=== PATIENT | male | born 1950 | race Caucasian/White ===

== ENCOUNTER 2017-07-15 10:13 | Inpatient (IN) | payer OTHER ==
[2017-07-15] MEDS ORDERED: PHARMACY CONSULT - TPN XX SCH (11:47)
[2017-07-15] MEDS: NS 1000 ML 1,000 ML IV SCH (12:10)
[2017-07-15 12:15] LABS: BASOPHILS # (AUTO) 0.1 X10^3/uL (0.0-0.1); BASOPHILS % (AUTO) 0.4 % (0.2-1.0); HEMATOCRIT 45.6 % (42.0-54.0); HEMOGLOBIN 15.1 g/dL (13.5-18.0); LYMPHOCYTES # (AUTO) 0.9 X10^3/uL (1.3-2.9); MEAN CORPUSCULAR HEMOGLOBIN 28.2 pg (27.0-34.0); MEAN CORPUSCULAR HGB CONC 33.2 g/dL (33.0-35.0); MONOCYTES # (AUTO) 1.3 x10^3/uL (0.3-0.8); MONOCYTES % (AUTO) 8.3 % (0.0-13.0); NEUTROPHILS % (AUTO) 85.3 % (42.0-75.0); PLATELET COUNT 240 X10^3/uL (150.0-450.0); RED BLOOD COUNT 5.36 X10^6/uL (4.7-6.0); RED CELL DISTRIBUTION WIDTH 14.5 % (11.6-16.5); WHITE BLOOD COUNT 15.2 X10^3/uL (3.6-10.0)
[2017-07-15 12:52] LABS: ALANINE AMINOTRANSFERASE 49 Units/L (12-78); ALBUMIN 3.3 g/dL (3.4-5.0); ALKALINE PHOSPHATASE 49 Units/L (46-116); ASPARTATE AMINO TRANSFERASE 174 Units/L (15-37); BLOOD UREA NITROGEN 28 mg/dL (7-18); CALCIUM 9.7 mg/dL (8.5-10.1); CARBON DIOXIDE 31.2 mmol/L (21-32); CHLORIDE 99 mmol/L (98-107); COR CA(FOR HYPOALB) 10.3 mg/dL (8.5-10.1); CREATININE 1.26 mg/dL (0.70-1.30); SODIUM 133 mmol/L (136-145); TOTAL PROTEIN 6.8 g/dL (6.4-8.2); eGFR BLACK RACES > 60 (>60); eGFR NON BLACK RACES > 60 (>60)
[2017-07-15 13:03] LABS: CKMB % 0.9 % (<4); CREATINE KINASE 5858 Units/L (39-308); CREATINE KINASE MB 54.3 ng/mL (0-4.0)
[2017-07-15 13:37] LABS: BILIRUBIN,URINE NEGATIVE (NEGATIVE); BLOOD/HEMOGLOBIN,URINE 5+ (NEGATIVE); GLUCOSE, URINE NEGATIVE (NEGATIVE); KETONES,URINE 1+ (NEGATIVE); LEUKOCYTE ESTERASE ,URINE 1+ (NEGATIVE); NITRITES,URINE NEGATIVE (NEGATIVE); PROTEIN,URINE 2+ (NEGATIVE); UROBILINOGEN,URINE NORMAL (NORMAL)
[2017-07-15 13:46] LABS: APPEARANCE,URINE HAZY (CLEAR); BACTERIA,URINE TRACE /HPF (NEGATIVE); COLOR,URINE YELLOW (YELLOW); SQUAMOUS EPITHELIAL CELL,UR FEW /HPF (NEGATIVE)
--- NOTE | 2017-07-15 13:53 | RAD ---
History: Shortness of breath Study: Portable semi-erect AP chest Comparison: January 03, 2014 Findings: The lungs again are hyperinflated. There is vascular congestion and cephalization of venous blood flow. The heart size is normal. There is no focal lung consolidation or atelectasis. Impression: COPD and vascular congestion Reported By:
--- NOTE | 2017-07-15 13:55 | CT ---
HISTORY: Weakness and fall. Study: CT brain without contrast Comparison: CT head dated December 27, 2013. Technique: Multiple axial images of the brain were obtained from the skull base to the vertex without administra tion of IV contrast. Dose reduction techniques including Automated Exposure Control (AEC) and adjust ment of mA and kV were utilized. Findings: Age-related cortical atrophy and chronic small vessel ischemic changes. Remote lacunar infarcts of th e left basal ganglia and bilateral thalami appear unchanged. Remote infarcts with associated encephal omalacia and ex vacuo dilatation of the posterior left occipital lobe and left cerebellum. No acute i ntraparenchymal hemorrhage or mass can be identified. No extra-axial fluid collections are seen. No alteration in the attenuation of the brain parenchyma can be identified to suggest acute or subacute ischemic change. The ventricular system is symmetric and nondilated. The extracranial structures a re grossly unremarkable. IMPRESSION: No obvious acute intracranial pathology. If clinically concerned for acute ischemia/infar ction, MRI brain is more sensitive. Reported By:
[2017-07-15] MEDS: ALBUMIN HUMAN 25%- 100ML 100 ML IV SCH (14:29)
[2017-07-15] MEDS: PROCALAMINE 3 % 1,000 ML IV SCH (14:32)
[2017-07-15 15:21] VITALS: BMI 16.5
[2017-07-15 16:36] LABS: TROPONIN I 0.17 ng/mL (0-1.5)
[2017-07-15 16:47] LABS: CREATINE KINASE MB 27.3 ng/mL (0-4.0)
[2017-07-15 16:48] LABS: CKMB % 0.7 % (<4)
[2017-07-15 20:44] LABS: TROPONIN I 0.15 ng/mL (0-1.5)
[2017-07-15 20:46] LABS: CKMB % 0.5 % (<4)
[2017-07-15 20:47] LABS: CREATINE KINASE MB 17.5 ng/mL (0-4.0)
[2017-07-15] MEDS ORDERED: ALBUTEROL SULFATE 90 MCG INH PRN (21:49)
[2017-07-16] MEDS ORDERED: DUONEB 0.5 MG/3 MG ONE (01:44)
[2017-07-16] MEDS: NS 1000 ML 1,000 ML IV SCH (02:09)
[2017-07-16] MEDS: PROVENTIL NEB TX 0.083% 2.5MG/ 3ML NEB PRN ×2 (04:18→09:40)
[2017-07-16 05:39] LABS: BASOPHILS % (AUTO) 0.5 % (0.2-1.0); EOSINOPHILS % (AUTO) 0.5 % (0.9-2.9); HEMATOCRIT 39.7 % (42.0-54.0); HEMOGLOBIN 13.1 g/dL (13.5-18.0); LYMPHOCYTES # (AUTO) 1.3 X10^3/uL (1.3-2.9); LYMPHOCYTES % (AUTO) 14.8 % (21.0-51.0); MEAN CORPUSCULAR HEMOGLOBIN 28.2 pg (27.0-34.0); MEAN CORPUSCULAR VOLUME 85.5 fL (80.0-100.0); MEAN PLATELET VOLUME 8.2 fL (7.4-11.0); MONOCYTES # (AUTO) 0.9 x10^3/uL (0.3-0.8); MONOCYTES % (AUTO) 9.9 % (0.0-13.0); NEUTROPHILS # (AUTO) 6.6 x10^3/uL (2.2-4.8); NEUTROPHILS % (AUTO) 74.3 % (42.0-75.0); PLATELET COUNT 201 X10^3/uL (150.0-450.0); RED BLOOD COUNT 4.65 X10^6/uL (4.7-6.0); RED CELL DISTRIBUTION WIDTH 14.2 % (11.6-16.5); WHITE BLOOD COUNT 8.8 X10^3/uL (3.6-10.0)
[2017-07-16 07:20] LABS: ALANINE AMINOTRANSFERASE 44 Units/L (12-78); ALBUMIN 2.7 g/dL (3.4-5.0); ALKALINE PHOSPHATASE 33 Units/L (46-116); ASPARTATE AMINO TRANSFERASE 112 Units/L (15-37); BLOOD UREA NITROGEN 26 mg/dL (7-18); CALCIUM 8.5 mg/dL (8.5-10.1); CARBON DIOXIDE 26.7 mmol/L (21-32); CHLORIDE 103 mmol/L (98-107); COR CA(FOR HYPOALB) 9.5 mg/dL (8.5-10.1); CREATININE 0.99 mg/dL (0.70-1.30); SODIUM 135 mmol/L (136-145); TOTAL PROTEIN 5.7 g/dL (6.4-8.2); TROPONIN I 0.07 ng/mL (0-1.5); eGFR BLACK RACES > 60 (>60); eGFR NON BLACK RACES > 60 (>60)
[2017-07-16 07:23] LABS: CKMB % 0.5 % (<4); CREATINE KINASE 1934 Units/L (39-308); CREATINE KINASE MB 9.3 ng/mL (0-4.0)
[2017-07-16] MEDS: ALBUMIN HUMAN 25%- 100ML 100 ML IV SCH (08:09)
[2017-07-16] MEDS: COZAAR PO SCH (08:10)
[2017-07-16] MEDS: MEGACE PO SCH ×2 (08:10→21:35)
[2017-07-16] MEDS: NORVASC TAB 5 MG PO SCH (08:10)
[2017-07-16] MEDS ORDERED: LOSARTAN POTASSIUM 50 MG PO SCH (09:00)
--- NOTE | 2017-07-16 10:57 | DR.H&P ---
H&P - History & Physical for Day of: H&P Date: 07/15/17 - Chief Complaint Chief Complaint: FALL, LEG WEAKNESS - Allergies Allergies/Adverse Reactions: Allergies Allergy/AdvReac Type Severity Reaction Status Date / Time No Known Allergies [NKA] Allergy Verified 07/16/17 11:11 - History of Present Illness History of Present Illness: is a 67 year old patient of ours who is a direct admission to the hospital from our office with complaints of weakness, unsteady gait, and headache. Patients son reported finding patient lying on the ground in his yard. It is unknown as to how long patient had been on the ground. Patient reports that he has not slept in 2-3 days. He does not recall falling. Upon examination, patient is alert and oriented. Heart is regular in rate and rhythm. Bilateral lungs are noted to be clear to auscultation. Abdomen is flat, soft, and non-tender with normal bowel sounds noted in all quadrants. There is decreased range of motion noted to extremities. Patient reports severe weakness to lower extremities. Medical History includes: CVA, TIA, hyperlipidemia, hypertension, pneumonia, COPD, GERD , muscle weakness, and back pain. We admitted patient to the hospital for further treatment and evaluation. We planned to obtain labs, ekg, chest xray, and brain ct without contrast. We plan to start him on normal saline at 75ml/hr , procalamine at 40ml/hr, and albumin 25% IV daily. On arrival to the hospital , vitals were 98.3, 102, 20, 94%RA, 136/91. He was placed on supplemental oxygen at 2l/min via nasal cannula. Labs were obtained. Abnormal Labs include the following: WBC 15.2, Sodium 133, BUN 28, Corrected Calcium 10.3, AST 174, Creatine Kinase 5858, CKMB 54.3, Albumin 3.3, A/G Ratio 0.9, Prealbumin 15.6. Urinalysis revealed: George Hazy, Protein 2+, Ketones 1+, Occult Blood 5+, Leuk Denise 1+, RBC 3-5, WBC 5-6, Squam Epith Cells Few, Bacteria Trace. EKG reported : Sinus rhythm. Heart rate=96. Chest xray reported: COPD and vascular congestion. Brain CT reported: No obvious acute intracranial pathology. If clinical concern for acute ischemia/infarction MELISSA brain is more sensitive. We plan to continue aggressive iv hydration. We will follow up with AM labs and continue to monitor patient. - Past Medical History Past Medical History: COPD, CVA, Dementia, Dyslipidemia, Hypertension - Past Surgical History Surgical History: Appendectomy, Ortho Surgery Additional Surgical History: (R) leg repair from accident with horse - Family History Family Medical History: Cancer, [place], Hypertension - Social History Alcohol Use: None Drug Use: None - Medications Home Medications: Albuterol Sulfate [VENTOLIN or PROAIR HFA Inhaler *] 90 mcg INH Q4H PRN [History Confirmed 07/15/17] Losartan Potassium [Cozaar 100 mg] 50 mg PO DAILY 07/15/17 [History Confirmed ] Megestrol Acetate [MEGACE TAB 40 MG *] 1 tab PO BID 07/15/17 [History Confirmed 07/15/17] - Review of Systems Constitutional: See HPI, Weakness Eyes: No Symptoms Reported. denies: See HPI, Pain, Vision Change, Conjunctivae Inflammation, Eyelid Inflammation, Redness, Other ENT: No Symptoms Reported. denies: See HPI, Ear Pain, Ear Discharge, Nose Pain , Nose Discharge, Nose Congestion, Mouth Pain, Mouth Swelling, Throat Pain, Throat Swelling, Other Respiratory: No Symptoms Reported. denies: See HPI, Cough, Dry, Shortness of Breath, Hemoptysis, SOB with Excertion, Pleuritic Pain, Sputum, Wheezing, Other Cardiovascular: No Symptoms Reported. denies: Chest Pain, See HPI, Palpitations , Orthopnea, Paroxysmal Noc. Dyspnea, Edema, Light Headedness, Other Gastrointestinal: No Symptoms Reported. denies: See HPI, Nausea, Vomiting, Abdominal Pain, Diarrhea, Constipation, Melena, Hematochezia, Other Genitourinary: No Symptoms Reported. denies: See HPI, Dysuria, Frequency, Incontinence, Hematuria, Retention, Other Musculoskeletal: Leg Pain (bialteral leg cramping ) Skin: No Symptoms Reported Neurological: Weakness - Physical Exam Vital Signs: Temperature 97.6 F Pulse Rate [Left] 85 Pulse Rate 81 Respiratory Rate 20 Blood Pressure [Right Arm] 174/88 Blood Pressure [Left Arm] 164/95 Blood Pressure 143/89 O2 Sat by Pulse Oximetry 98 Oriented: Normal Eyes: Normal. negative: Blurred Vision, Diplopia, Discharge, Pain, Redness, Photophobia, Other Ear: Normal. negative: Right, Left, Swelling, Ecchymosis, Hemotypanum, Abrasion , Laceration Nose: Normal. negative: Injected, Discharge, Blood, Other Throat: Normal. negative: Tonsillar Hypertrophy, Red, Exudate, Dry, Other Respiratory: Clear Throughout Cardiovascular: negative: Normal, Tachycardia, Bradycardia, Irregular, S3, S4, Systolic, Diastolic, Murmur, Edema, Other Auscultation: Bowel Sounds: Normal. negative: Bruit, Absent, Increased, Decreased, High Pitched, Other Palpation: Normal. negative: Spleen Enlarged, Liver Enlarged, Mass Pulsatile, Other Tenderness: Normal. negative: Diffuse, RUQ, RLQ, LUQ, LLQ, Epigastric, Periumbilical, Suprapubic, Mild, Moderate, Severe, Rebound, Guarding, Rigidity, Other Skin: Decreased Turgur Musculoskeletal: Right, Left, Leg (bilateral lower extremity weakness ) Psychiatric: Normal Mood Description: Calm Affect: Normal Speech Pattern: Clear - Assessment/Plan (1) Rhabdomyolysis Qualifiers: Rhabdomyolysis type: traumatic Encounter type: initial encounter Qualified Code(s): T79.6XXA - Traumatic ischemia of muscle, initial encounter Status: Acute Plan: NORMAL SALINE AT 75ML/HR, PROCALAMINE AT 40ML/HR, BRAIN CT DUE TO FALL, PHYSICAL THERAPY DUE TO WEAKNESS, CONTINUE TO MONITOR (2) Fall Qualifiers: Encounter type: initial encounter Qualified Code(s): W19.XXXA - Unspecified fall, initial encounter Status: Acute Plan: BRAIN CT WITHOUT CONTRAST, PHYSICAL THERAPY CONSULT, CONTINUE TO MONITOR (3) Protein deficiency Status: Acute Plan: PROCALAMINE AT 40ML/HR, ALBUMIN 25% IV DAILY, CONTINUE TO MONITOR
[2017-07-16] MEDS: ASPIRIN EC 81 MG PO SCH (14:48)
[2017-07-16] MEDS: PROCALAMINE 3 % 1,000 ML IV SCH (14:48)
[2017-07-16] MEDS: COLACE CAP 100 MG PO SCH (21:35)
[2017-07-17] MEDS: VISTARIL PO PRN (03:20)
[2017-07-17 05:47] LABS: BASOPHILS % (AUTO) 0.2 % (0.2-1.0); EOSINOPHILS % (AUTO) 0.4 % (0.9-2.9); HEMOGLOBIN 14.2 g/dL (13.5-18.0); LYMPHOCYTES # (AUTO) 0.5 X10^3/uL (1.3-2.9); LYMPHOCYTES % (AUTO) 3.9 % (21.0-51.0); MEAN CORPUSCULAR HEMOGLOBIN 28.5 pg (27.0-34.0); MEAN CORPUSCULAR HGB CONC 33.1 g/dL (33.0-35.0); MEAN CORPUSCULAR VOLUME 86.1 fL (80.0-100.0); MEAN PLATELET VOLUME 8.3 fL (7.4-11.0); MONOCYTES # (AUTO) 0.7 x10^3/uL (0.3-0.8); MONOCYTES % (AUTO) 5.6 % (0.0-13.0); NEUTROPHILS # (AUTO) 10.8 x10^3/uL (2.2-4.8); NEUTROPHILS % (AUTO) 89.9 % (42.0-75.0); PLATELET COUNT 210 X10^3/uL (150.0-450.0); RED BLOOD COUNT 4.99 X10^6/uL (4.7-6.0); RED CELL DISTRIBUTION WIDTH 14.3 % (11.6-16.5); WHITE BLOOD COUNT 12.1 X10^3/uL (3.6-10.0)
[2017-07-17 06:25] LABS: ALANINE AMINOTRANSFERASE 59 Units/L (12-78); ALBUMIN 3.4 g/dL (3.4-5.0); ALKALINE PHOSPHATASE 39 Units/L (46-116); ASPARTATE AMINO TRANSFERASE 120 Units/L (15-37); BLOOD UREA NITROGEN 16 mg/dL (7-18); CALCIUM 9.1 mg/dL (8.5-10.1); CHLORIDE 97 mmol/L (98-107); CREATININE 0.81 mg/dL (0.70-1.30); SODIUM 133 mmol/L (136-145); TOTAL PROTEIN 6.7 g/dL (6.4-8.2); TROPONIN I 0.05 ng/mL (0-1.5); eGFR BLACK RACES > 60 (>60); eGFR NON BLACK RACES > 60 (>60)
[2017-07-17 06:28] LABS: CKMB % 0.4 % (<4); CREATINE KINASE 2314 Units/L (39-308); CREATINE KINASE MB 9.1 ng/mL (0-4.0)
[2017-07-17] MEDS: COZAAR PO SCH (09:42)
[2017-07-17] MEDS: NORVASC TAB 5 MG PO SCH (09:42)
[2017-07-17] MEDS: ALBUMIN HUMAN 25%- 100ML 100 ML IV SCH (09:43)
[2017-07-17] MEDS: MEGACE PO SCH ×2 (09:43→20:46)
[2017-07-17] MEDS: ASPIRIN EC 81 MG PO SCH (09:43)
[2017-07-17] MEDS: ROCEPHIN VIAL 1 GM 1 GM in NS 100 ML IV + SPIKE MINIBAG* 100 ML IV SCH (09:59)
[2017-07-17] MEDS: NS 1000 ML 1,000 ML IV SCH (09:59)
[2017-07-17 11:33] LABS: BILIRUBIN,URINE NEGATIVE (NEGATIVE); BLOOD/HEMOGLOBIN,URINE 5+ (NEGATIVE); GLUCOSE, URINE NEGATIVE (NEGATIVE); KETONES,URINE NEGATIVE (NEGATIVE); LEUKOCYTE ESTERASE ,URINE NEGATIVE (NEGATIVE); NITRITES,URINE NEGATIVE (NEGATIVE); PROTEIN,URINE 1+ (NEGATIVE); UROBILINOGEN,URINE NORMAL (NORMAL)
[2017-07-17 11:43] LABS: APPEARANCE,URINE SLIGHTLY HAZY (CLEAR); COLOR,URINE YELLOW (YELLOW); RBC,URINE 40-50 /HPF (NEGATIVE)
[2017-07-17 11:44] LABS: BACTERIA,URINE NEGATIVE /HPF (NEGATIVE); SQUAMOUS EPITHELIAL CELL,UR NEGATIVE /HPF (NEGATIVE)
[2017-07-17] MEDS: MILK OF MAGNESIA PO SCH (14:41)
[2017-07-17] MEDS: COLACE CAP 100 MG PO SCH (20:46)
[2017-07-17] MEDS: PROCALAMINE 3 % 1,000 ML IV SCH (20:51)
[2017-07-18 05:57] LABS: BASOPHILS # (AUTO) 0.1 X10^3/uL (0.0-0.1); BASOPHILS % (AUTO) 0.7 % (0.2-1.0); EOSINOPHILS # (AUTO) 0.3 x10^3/uL (0.0-0.2); EOSINOPHILS % (AUTO) 3.7 % (0.9-2.9); HEMATOCRIT 40.3 % (42.0-54.0); HEMOGLOBIN 13.5 g/dL (13.5-18.0); LYMPHOCYTES # (AUTO) 1.1 X10^3/uL (1.3-2.9); LYMPHOCYTES % (AUTO) 11.8 % (21.0-51.0); MEAN CORPUSCULAR HEMOGLOBIN 28.5 pg (27.0-34.0); MEAN CORPUSCULAR HGB CONC 33.5 g/dL (33.0-35.0); MEAN CORPUSCULAR VOLUME 85.1 fL (80.0-100.0); MEAN PLATELET VOLUME 8.1 fL (7.4-11.0); MONOCYTES # (AUTO) 0.9 x10^3/uL (0.3-0.8); MONOCYTES % (AUTO) 9.6 % (0.0-13.0); NEUTROPHILS # (AUTO) 6.9 x10^3/uL (2.2-4.8); NEUTROPHILS % (AUTO) 74.2 % (42.0-75.0); PLATELET COUNT 225 X10^3/uL (150.0-450.0); RED BLOOD COUNT 4.74 X10^6/uL (4.7-6.0); RED CELL DISTRIBUTION WIDTH 14.5 % (11.6-16.5); WHITE BLOOD COUNT 9.3 X10^3/uL (3.6-10.0)
[2017-07-18 06:17] LABS: ALANINE AMINOTRANSFERASE 50 Units/L (12-78); ALBUMIN 3.2 g/dL (3.4-5.0); ALKALINE PHOSPHATASE 33 Units/L (46-116); ASPARTATE AMINO TRANSFERASE 85 Units/L (15-37); BLOOD UREA NITROGEN 16 mg/dL (7-18); CALCIUM 8.9 mg/dL (8.5-10.1); CARBON DIOXIDE 26.9 mmol/L (21-32); CHLORIDE 101 mmol/L (98-107); COR CA(FOR HYPOALB) 9.5 mg/dL (8.5-10.1); SODIUM 134 mmol/L (136-145); TOTAL PROTEIN 6.2 g/dL (6.4-8.2); TROPONIN I 0.03 ng/mL (0-1.5); eGFR BLACK RACES > 60 (>60); eGFR NON BLACK RACES > 60 (>60)
[2017-07-18 06:23] LABS: CKMB % 0.4 % (<4); CREATINE KINASE 1180 Units/L (39-308); CREATINE KINASE MB 4.4 ng/mL (0-4.0)
[2017-07-18] MEDS: NS 1000 ML 1,000 ML IV SCH ×3 (07:25→17:20)
[2017-07-18] MEDS: COLACE CAP 100 MG PO SCH ×3 (07:26→21:16)
[2017-07-18] MEDS: ALBUMIN HUMAN 25%- 100ML 100 ML IV SCH (08:47)
[2017-07-18] MEDS: ASPIRIN EC 81 MG PO SCH (08:47)
[2017-07-18] MEDS: MILK OF MAGNESIA PO SCH (08:48)
[2017-07-18] MEDS: COZAAR PO SCH (08:48)
[2017-07-18] MEDS: ROCEPHIN VIAL 1 GM 1 GM in NS 100 ML IV + SPIKE MINIBAG* 100 ML IV SCH (08:48)
[2017-07-18] MEDS: MEGACE PO SCH ×2 (08:48→21:16)
[2017-07-18] MEDS: NORVASC TAB 5 MG PO SCH (08:48)
[2017-07-18] MEDS ORDERED: MILK OF MAGNESIA PO SCH (09:00)
[2017-07-18] MEDS: PROCALAMINE 3 % 1,000 ML IV SCH (13:01)
[2017-07-18] MEDS: FLOMAX PO SCH ×2 (13:01→21:16)
--- NOTE | 2017-07-18 17:40 | PCM.PROG ---
Progress Note - Progress Note for Day of Date: 07/16/17 - Subjective Subjective: IS BEING TREATED FOR RHABDOMYOLYSIS AND WEAKNESS TO THE LOWER EXTREMITIES. HE REPORTEDLY FELL AT HOME YESTERDAY. TODAY, HE IS ALERT AND ORIENTED, LYING IN BED ON MORNING ROUNDS. HE CONTINUES WITH COMPLAINTS OF GENERALIZED WEAKNESS. ON EXAMINATION, HEART IS REGULAR IN RATE AND RHYTHM. BILATERAL LUNGS ARE NOTED WITH DIMINISHED LUNG SOUNDS THROUGHOUT. ABDOMEN IS ROUND, SOFT, AND NOTED WITH MILD, SUPRAPUBIC TENDERNESS ON PALPATION. NORMAL BOWEL SOUNDS NOTED IN ALL QUADRANTS. THERE IS NORMAL RANGE OF MOTION NOTED TO ALL EXTREMITIES. HIS VITALS THIS MORNING ARE 97.6-85-20-98%-164/ 95. LABS WERE OBTAINED THIS MORNING. ABNORMAL LAB VALUES INCLUDE THE FOLLOWING: RBC 4.65, HGB 13.1, HCT 39.7, SODIUM 135, BUN 26, AST 112, ALK OHOS 33, TOTAL PROTEIN 5.7, ALBUMIN 2.7. HIS CREATINE KINASE THIS MORNING IS 1934. THIS IS A DECREASE FROM YESTERDAYS CREATINE KINASE LEVEL OF 3343. MOST RECENT EKG WAS OBTAINED AT 19:53 LAST NIGHT AND REPORTS SINUS RHYTHM WITH HR 95. TODAY, WE WILL HAVE PHYSICAL THERAPY AND OCCUPATIONAL THERAPY EVALUATE PATIENT. OTHERWISE , WE WILL CONTINUE WITH CURRENT PLAN OF CARE AND AGGRESSIVE IV HYDRATION. WE PLAN TO FOLLOW UP WITH AM LABS AND CONTINUE TO MONITOR PATIENT. - Past Medical Family Social History Past Med/Fam/Surg Hx: No changes since H&P Allergies: Allergies No Known Allergies [NKA] Allergy (Verified 07/16/17 11:11) - Vital Signs and I&O's Vital Signs: Temperature 98.1 F Pulse Rate [Left] 83 Pulse Rate 89 Respiratory Rate 20 Blood Pressure [Right Arm] 131/74 Blood Pressure [Left Arm] 175/105 Blood Pressure 143/89 O2 Sat by Pulse Oximetry 100 Intake and Output: Intake & Output 07/16/17 07/17/17 07/18/17 07/19/17 11:59 11:59 11:59 11:59 Intake Total 820 1618 3097 1250 Output Total 413 892 4584 1200 Balance 245 1218 -303 50 - Physical Exam Oriented: Normal Eyes: Normal. negative: Blurred Vision, Diplopia, Discharge, Pain, Redness, Photophobia, Other Ear: Normal. negative: Right, Left, Swelling, Ecchymosis, Hemotypanum, Abrasion , Laceration Nose: Normal. negative: Injected, Discharge, Blood, Other Throat: Normal. negative: Tonsillar Hypertrophy, Red, Exudate, Dry, Other Respiratory: Generalized Cardiovascular: negative: Normal, Tachycardia, Bradycardia, Irregular, S3, S4, Systolic, Diastolic, Murmur, Edema, Other : Normal Auscultation: Bowel Sounds: Normal. negative: Bruit, Absent, Increased, Decreased, High Pitched, Other Palpation: Normal Tenderness: Suprapubic, Mild. negative: Rebound, Guarding, Rigidity Skin: Decreased Turgur Musculoskeletal: Right, Left, Leg (bilateral lower extremity weakness ) Psychiatric: Normal Mood Description: Calm Affect: Normal Speech Pattern: Clear, Appropriate - Laboratory and Diagnostics Result Diagrams: 07/18/17 05:00 07/18/17 05:00 Labs: Laboratory WBC 9.3 X10^3/uL (3.6-10.0) 07/18/17 05:00 RBC 4.74 X10^6/uL (4.7-6.0) 07/18/17 05:00 Hgb 13.5 g/dL (13.5-18.0) 07/18/17 05:00 Hct 40.3 % (42.0-54.0) L 07/18/17 05:00 MCV 85.1 fL (80.0-100.0) 07/18/17 05:00 MCH 28.5 pg (27.0-34.0) 07/18/17 05:00 MCHC 33.5 g/dL (33.0-35.0) 07/18/17 05:00 RDW 14.5 % (11.6-16.5) 07/18/17 05:00 Plt Count 225 X10^3/uL (150.0-450.0) 07/18/17 05:00 MPV 8.1 fL (7.4-11.0) 07/18/17 05:00 Neut % 74.2 % (42.0-75.0) 07/18/17 05:00 Lymph % 11.8 % (21.0-51.0) L 07/18/17 05:00 [place] % 9.6 % (0.0-13.0) 07/18/17 05:00 Eos % 3.7 % (0.9-2.9) H 07/18/17 05:00 Baso % 0.7 % (0.2-1.0) 07/18/17 05:00 Neut # 6.9 x10^3/uL (2.2-4.8) H 07/18/17 05:00 Lymph # 1.1 X10^3/uL (1.3-2.9) L 07/18/17 05:00 [place] # 0.9 x10^3/uL (0.3-0.8) H 07/18/17 05:00 Eos # 0.3 x10^3/uL (0.0-0.2) H 07/18/17 05:00 Baso # 0.1 X10^3/uL (0.0-0.1) 07/18/17 05:00 Absolute Nucleated RBC 0.1 /100WBC 07/18/17 05:00 Sodium 134 mmol/L (136-145) L 07/18/17 05:00 Corrected Sodium TNP 07/18/17 05:00 Potassium 4.2 mmol/L (3.5-5.1) 07/18/17 05:00 Chloride 101 mmol/L (98-107) 07/18/17 05:00 Carbon Dioxide 26.9 mmol/L (21-32) 07/18/17 05:00 BUN 16 mg/dL (7-18) 07/18/17 05:00 Creatinine 0.90 mg/dL (0.70-1.30) 07/18/17 05:00 Est GFR (MDRD) Af Amer > 60 (>60) 07/18/17 05:00 Est GFR (MDRD) Non-Af > 60 (>60) 07/18/17 05:00 Glucose 84 mg/dL (65-99) 07/18/17 05:00 Calcium 8.9 mg/dL (8.5-10.1) 07/18/17 05:00 Corrected Calcium 9.5 mg/dL (8.5-10.1) 07/18/17 05:00 Total Bilirubin 0.70 mg/dL (0.2-1.0) 07/18/17 05:00 AST 85 Units/L (15-37) H 07/18/17 05:00 ALT 50 Units/L (12-78) 07/18/17 05:00 Alkaline Phosphatase 33 Units/L (46-116) L 07/18/17 05:00 Creatine Kinase 1180 Units/L (39-308) H 07/18/17 05:00 CK-MB (CK-2) 4.4 ng/mL (0-4.0) H* 07/18/17 05:00 CK/CKMB % Calc 0.4 % (<4) 07/18/17 05:00 Troponin I 0.03 ng/mL (0-1.5) 07/18/17 05:00 Total Protein 6.2 g/dL (6.4-8.2) L 07/18/17 05:00 Albumin 3.2 g/dL (3.4-5.0) L 07/18/17 05:00 Globulin 3.0 g/dL (2.5-4.5) 07/18/17 05:00 Albumin/Globulin Ratio 1.1 Ratio (1.1-2.1) 07/18/17 05:00 Prealbumin 15.6 mg/dL (18-35.7) L 07/15/17 12:00 Specimen Type Catherized urine 07/17/17 11:18 Urine Color Yellow (YELLOW) 07/17/17 11:18 Urine Appearance Slightly hazy (CLEAR) 07/17/17 11:18 Urine pH 7.0 (5.0 - 8.0) 07/17/17 11:18 Ur Specific [place] 1.010 (1.000-1.030) 07/17/17 11:18 Urine Protein 1+ (NEGATIVE) 07/17/17 11:18 Urine Glucose (UA) Negative (NEGATIVE) 07/17/17 11:18 Urine Ketones Negative (NEGATIVE) 07/17/17 11:18 Urine Occult Blood 5+ (NEGATIVE) 07/17/17 11:18 Urine Nitrite Negative (NEGATIVE) 07/17/17 11:18 Urine Bilirubin Negative (NEGATIVE) 07/17/17 11:18 Urine Urobilinogen Normal (NORMAL) 07/17/17 11:18 Ur Leukocyte Esterase Negative (NEGATIVE) 07/17/17 11:18 Urine RBC 40-50 /HPF (NEGATIVE) 07/17/17 11:18 Urine WBC 0-3 /HPF (NEGATIVE) 07/17/17 11:18 Ur Squamous Epith Cells Negative /HPF (NEGATIVE) 07/17/17 11:18 Urine Bacteria Negative /HPF (NEGATIVE) 07/17/17 11:18 Ur Culture Indicated? No/not indicated 07/17/17 11:18 - Plan (1) Rhabdomyolysis Status: Acute Qualifiers: Rhabdomyolysis type: traumatic Encounter type: initial encounter Qualified Code(s): T79.6XXA - Traumatic ischemia of muscle, initial encounter Plan: NORMAL SALINE AT 75ML/HR, PROCALAMINE AT 40ML/HR, BRAIN CT DUE TO FALL, PHYSICAL THERAPY DUE TO WEAKNESS, CONTINUE TO MONITOR (2) Fall Status: Acute Qualifiers: Encounter type: initial encounter Qualified Code(s): W19.XXXA - Unspecified fall, initial encounter Plan: BRAIN CT WITHOUT CONTRAST, PHYSICAL THERAPY CONSULT, CONTINUE TO MONITOR (3) Protein deficiency Status: Acute Plan: PROCALAMINE AT 40ML/HR, ALBUMIN 25% IV DAILY, CONTINUE TO MONITOR
--- NOTE | 2017-07-18 22:05 | PCM.PROG ---
Progress Note - Progress Note for Day of Date: 07/17/17 - Subjective Subjective: IS BEING TREATED FOR RHABDOMYOLYSIS AND WEAKNESS TO THE LOWER EXTREMITIES. TODAY, HE IS ALERT AND ORIENTED, LYING IN BED ON MORNING ROUNDS. HE CONTINUES WITH COMPLAINTS OF GENERALIZED WEAKNESS. STAFF REPORTS THAT PATIENT COMPLAINED OF BEING UNABLE TO URINATE LAST NIGHT AND EARLY THIS MORNING. IN AND OUT CATHETERIZATION WAS PERFORMED. APPROXIMATELY 480ML CLEAR YELLOW URINE OBTAINED ON RETURN. PATIENTS SON REPORTED THAT PATIENT HAS BEEN AGITATED AND CONFUSED THROUGHOUT THE NIGHT AND HASNT SLEPT WELL SINCE ADMISSION. ON EXAMINATION, HEART IS REGULAR IN RATE AND RHYTHM. BILATERAL LUNGS ARE NOTED TO BE CLEAR TO AUSCULTATION. ABDOMEN IS ROUND, SOFT, AND NOTED WITH MILD, SUPRAPUBIC TENDERNESS ON PALPATION. NORMAL BOWEL SOUNDS NOTED IN ALL QUADRANTS. THERE IS NORMAL RANGE OF MOTION NOTED TO ALL EXTREMITIES. HIS VITALS THIS MORNING ARE 97.2-94-22-94%-139/95. LABS WERE OBTAINED THIS MORNING. ABNORMAL LAB VALUES INCLUDE THE FOLLOWING: WBC 12.1, SODIUM 133, CHLORIDE 97, AST 120, ALK PHOS 39, CREATINE KINASE INCREASED FROM 1934 TO 2314. TODAY, WE WILL START ZYPREXA 2.5MG PO HS. PHYSICAL THERAPY CONTINUES TO WORK WITH PATIENT , HOWEVER, PATIENT DOES NOT FULLY COOPERATE. HE REFUSES TO PERFORM EXERCISES. TODAY, WE WILL CONTINUE WITH CURRENT PLAN OF CARE AND AGGRESSIVE IV HYDRATION. WE PLAN TO FOLLOW UP WITH AM LABS AND CONTINUE TO MONITOR PATIENT. - Past Medical Family Social History Past Med/Fam/Surg Hx: No changes since H&P Allergies: Allergies No Known Allergies [NKA] Allergy (Verified 07/16/17 11:11) - Vital Signs and I&O's Vital Signs: Temperature 98.1 F Pulse Rate [Left] 83 Pulse Rate 82 Respiratory Rate 20 Blood Pressure [Right Arm] 131/74 Blood Pressure [Left Arm] 175/105 Blood Pressure 143/89 O2 Sat by Pulse Oximetry 96 Intake and Output: Intake & Output 07/16/17 07/17/17 07/18/17 07/19/17 11:59 11:59 11:59 11:59 Intake Total 820 1618 3097 1250 Output Total 222 158 2521 1200 Balance 245 1218 -303 50 - Physical Exam Oriented: Normal Eyes: Normal. negative: Blurred Vision, Diplopia, Discharge, Pain, Redness, Photophobia, Other Ear: Normal. negative: Right, Left, Swelling, Ecchymosis, Hemotypanum, Abrasion , Laceration Nose: Normal. negative: Injected, Discharge, Blood, Other Throat: Normal. negative: Tonsillar Hypertrophy, Red, Exudate, Dry, Other Respiratory: Generalized Cardiovascular: negative: Normal, Tachycardia, Bradycardia, Irregular, S3, S4, Systolic, Diastolic, Murmur, Edema, Other : Normal Auscultation: Bowel Sounds: Normal. negative: Bruit, Absent, Increased, Decreased, High Pitched, Other Palpation: Normal Tenderness: Suprapubic, Mild. negative: Rebound, Guarding, Rigidity Skin: Decreased Turgur Musculoskeletal: Right, Left, Leg (bilateral lower extremity weakness ), Instability Psychiatric: Normal Mood Description: Calm Affect: Normal Speech Pattern: Clear, Appropriate - Laboratory and Diagnostics Result Diagrams: 07/18/17 05:00 07/18/17 05:00 Labs: Laboratory WBC 9.3 X10^3/uL (3.6-10.0) 07/18/17 05:00 RBC 4.74 X10^6/uL (4.7-6.0) 07/18/17 05:00 Hgb 13.5 g/dL (13.5-18.0) 07/18/17 05:00 Hct 40.3 % (42.0-54.0) L 07/18/17 05:00 MCV 85.1 fL (80.0-100.0) 07/18/17 05:00 MCH 28.5 pg (27.0-34.0) 07/18/17 05:00 MCHC 33.5 g/dL (33.0-35.0) 07/18/17 05:00 RDW 14.5 % (11.6-16.5) 07/18/17 05:00 Plt Count 225 X10^3/uL (150.0-450.0) 07/18/17 05:00 MPV 8.1 fL (7.4-11.0) 07/18/17 05:00 Neut % 74.2 % (42.0-75.0) 07/18/17 05:00 Lymph % 11.8 % (21.0-51.0) L 07/18/17 05:00 [place] % 9.6 % (0.0-13.0) 07/18/17 05:00 Eos % 3.7 % (0.9-2.9) H 07/18/17 05:00 Baso % 0.7 % (0.2-1.0) 07/18/17 05:00 Neut # 6.9 x10^3/uL (2.2-4.8) H 07/18/17 05:00 Lymph # 1.1 X10^3/uL (1.3-2.9) L 07/18/17 05:00 [place] # 0.9 x10^3/uL (0.3-0.8) H 07/18/17 05:00 Eos # 0.3 x10^3/uL (0.0-0.2) H 07/18/17 05:00 Baso # 0.1 X10^3/uL (0.0-0.1) 07/18/17 05:00 Absolute Nucleated RBC 0.1 /100WBC 07/18/17 05:00 Sodium 134 mmol/L (136-145) L 07/18/17 05:00 Corrected Sodium TNP 07/18/17 05:00 Potassium 4.2 mmol/L (3.5-5.1) 07/18/17 05:00 Chloride 101 mmol/L (98-107) 07/18/17 05:00 Carbon Dioxide 26.9 mmol/L (21-32) 07/18/17 05:00 BUN 16 mg/dL (7-18) 07/18/17 05:00 Creatinine 0.90 mg/dL (0.70-1.30) 07/18/17 05:00 Est GFR (MDRD) Af Amer > 60 (>60) 07/18/17 05:00 Est GFR (MDRD) Non-Af > 60 (>60) 07/18/17 05:00 Glucose 84 mg/dL (65-99) 07/18/17 05:00 Calcium 8.9 mg/dL (8.5-10.1) 07/18/17 05:00 Corrected Calcium 9.5 mg/dL (8.5-10.1) 07/18/17 05:00 Total Bilirubin 0.70 mg/dL (0.2-1.0) 07/18/17 05:00 AST 85 Units/L (15-37) H 07/18/17 05:00 ALT 50 Units/L (12-78) 07/18/17 05:00 Alkaline Phosphatase 33 Units/L (46-116) L 07/18/17 05:00 Creatine Kinase 1180 Units/L (39-308) H 07/18/17 05:00 CK-MB (CK-2) 4.4 ng/mL (0-4.0) H* 07/18/17 05:00 CK/CKMB % Calc 0.4 % (<4) 07/18/17 05:00 Troponin I 0.03 ng/mL (0-1.5) 07/18/17 05:00 Total Protein 6.2 g/dL (6.4-8.2) L 07/18/17 05:00 Albumin 3.2 g/dL (3.4-5.0) L 07/18/17 05:00 Globulin 3.0 g/dL (2.5-4.5) 07/18/17 05:00 Albumin/Globulin Ratio 1.1 Ratio (1.1-2.1) 07/18/17 05:00 Prealbumin 15.6 mg/dL (18-35.7) L 07/15/17 12:00 Specimen Type Catherized urine 07/17/17 11:18 Urine Color Yellow (YELLOW) 07/17/17 11:18 Urine Appearance Slightly hazy (CLEAR) 07/17/17 11:18 Urine pH 7.0 (5.0 - 8.0) 07/17/17 11:18 Ur Specific [place] 1.010 (1.000-1.030) 07/17/17 11:18 Urine Protein 1+ (NEGATIVE) 07/17/17 11:18 Urine Glucose (UA) Negative (NEGATIVE) 07/17/17 11:18 Urine Ketones Negative (NEGATIVE) 07/17/17 11:18 Urine Occult Blood 5+ (NEGATIVE) 07/17/17 11:18 Urine Nitrite Negative (NEGATIVE) 07/17/17 11:18 Urine Bilirubin Negative (NEGATIVE) 07/17/17 11:18 Urine Urobilinogen Normal (NORMAL) 07/17/17 11:18 Ur Leukocyte Esterase Negative (NEGATIVE) 07/17/17 11:18 Urine RBC 40-50 /HPF (NEGATIVE) 07/17/17 11:18 Urine WBC 0-3 /HPF (NEGATIVE) 07/17/17 11:18 Ur Squamous Epith Cells Negative /HPF (NEGATIVE) 07/17/17 11:18 Urine Bacteria Negative /HPF (NEGATIVE) 07/17/17 11:18 Ur Culture Indicated? No/not indicated 07/17/17 11:18 - Plan (1) Rhabdomyolysis Status: Acute Qualifiers: Rhabdomyolysis type: traumatic Encounter type: initial encounter Qualified Code(s): T79.6XXA - Traumatic ischemia of muscle, initial encounter Plan: NORMAL SALINE AT 75ML/HR, PROCALAMINE AT 40ML/HR, BRAIN CT DUE TO FALL, PHYSICAL THERAPY DUE TO WEAKNESS, CONTINUE TO MONITOR (2) Fall Status: Acute Qualifiers: Encounter type: initial encounter Qualified Code(s): W19.XXXA - Unspecified fall, initial encounter Plan: BRAIN CT WITHOUT CONTRAST, PHYSICAL THERAPY CONSULT, CONTINUE TO MONITOR (3) Protein deficiency Status: Acute Plan: PROCALAMINE AT 40ML/HR, ALBUMIN 25% IV DAILY, CONTINUE TO MONITOR (4) Agitation Status: Acute Plan: ZYPREXA 2.5MG HS, CONTINUE TO MONITOR
--- NOTE | 2017-07-18 23:40 | PCM.PROG ---
Progress Note - Progress Note for Day of Date: 07/18/17 - Subjective Subjective: IS BEING TREATED FOR RHABDOMYOLYSIS AND WEAKNESS TO THE LOWER EXTREMITIES. TODAY, HE IS ALERT AND ORIENTED, LYING IN BED ON MORNING ROUNDS. HE CONTINUES WITH COMPLAINTS OF GENERALIZED WEAKNESS, BUT REPORTS SLIGHT IMPROVEMENT IN SYMPTOMS SINCE YESTERDAY. DUE TO RETAINING URINE, A BAIG CATHETER WAS INSERTED YESTERDAY. IT IS NOTED TO BEDSIDE DRAINAGE WITH CLEAR YELLOW URINE THIS MORNING. PATIENTS SON REPORTED THAT PATIENT CONTINUES WITH AGITATION AND DOES NOT WANT TO COOPERATE WITH THERAPY. ON EXAMINATION, HEART IS REGULAR IN RATE AND RHYTHM. BILATERAL LUNGS ARE NOTED TO BE CLEAR TO AUSCULTATION. ABDOMEN IS ROUND, SOFT, AND NOTED WITH MILD, SUPRAPUBIC TENDERNESS ON PALPATION. NORMAL BOWEL SOUNDS NOTED IN ALL QUADRANTS. THERE IS NORMAL RANGE OF MOTION NOTED TO ALL EXTREMITIES. HIS VITALS THIS MORNING ARE 97.8-101-22-96%-166/98. LABS WERE OBTAINED THIS MORNING. ABNORMAL LAB VALUES INCLUDE THE FOLLOWING: HCT 40.3, SODIUM 134, AST 85, ALK PHOS 33, CREATINE KINASE DECREASED FROM 2314 TO 1180. DUE TO PERSISTENT AGITATION, WE WILL INCREASE ZYPREXA TO 2.5MG PO BID. WE WILL ALSO START FLOMAX 0.4MG PO BID FOR URINE RETENTION. OTHERWISE, WE WILL CONTINUE WITH CURRENT PLAN OF CARE AND AGGRESSIVE IV HYDRATION. WE PLAN TO FOLLOW UP WITH AM LABS AND CONTINUE TO MONITOR PATIENT. - Past Medical Family Social History Past Med/Fam/Surg Hx: No changes since H&P Allergies: Allergies No Known Allergies [NKA] Allergy (Verified 07/16/17 11:11) - Review of Systems ROS: No change since H&P - Vital Signs and I&O's Vital Signs: Temperature 98.1 F Pulse Rate [Left] 83 Pulse Rate 82 Respiratory Rate 20 Blood Pressure [Right Arm] 131/74 Blood Pressure [Left Arm] 175/105 Blood Pressure 143/89 O2 Sat by Pulse Oximetry 96 Intake and Output: Intake & Output 07/16/17 07/17/17 07/18/17 07/19/17 11:59 11:59 11:59 11:59 Intake Total 820 1618 3097 1250 Output Total 866 279 3422 1200 Balance 245 1218 -303 50 - Physical Exam Oriented: Normal Eyes: Normal. negative: Blurred Vision, Diplopia, Discharge, Pain, Redness, Photophobia, Other Ear: Normal. negative: Right, Left, Swelling, Ecchymosis, Hemotypanum, Abrasion , Laceration Nose: Normal. negative: Injected, Discharge, Blood, Other Throat: Normal. negative: Tonsillar Hypertrophy, Red, Exudate, Dry, Other Respiratory: Generalized Cardiovascular: negative: Normal, Tachycardia, Bradycardia, Irregular, S3, S4, Systolic, Diastolic, Murmur, Edema, Other : Normal Auscultation: Bowel Sounds: Normal. negative: Bruit, Absent, Increased, Decreased, High Pitched, Other Palpation: Normal Tenderness: Suprapubic, Mild. negative: Rebound, Guarding, Rigidity Skin: Decreased Turgur Musculoskeletal: Right, Left, Leg (bilateral lower extremity weakness ), Instability Psychiatric: Normal Mood Description: Calm Affect: Normal Speech Pattern: Clear, Appropriate - Laboratory and Diagnostics Result Diagrams: 07/18/17 05:00 07/18/17 05:00 Labs: Laboratory WBC 9.3 X10^3/uL (3.6-10.0) 07/18/17 05:00 RBC 4.74 X10^6/uL (4.7-6.0) 07/18/17 05:00 Hgb 13.5 g/dL (13.5-18.0) 07/18/17 05:00 Hct 40.3 % (42.0-54.0) L 07/18/17 05:00 MCV 85.1 fL (80.0-100.0) 07/18/17 05:00 MCH 28.5 pg (27.0-34.0) 07/18/17 05:00 MCHC 33.5 g/dL (33.0-35.0) 07/18/17 05:00 RDW 14.5 % (11.6-16.5) 07/18/17 05:00 Plt Count 225 X10^3/uL (150.0-450.0) 07/18/17 05:00 MPV 8.1 fL (7.4-11.0) 07/18/17 05:00 Neut % 74.2 % (42.0-75.0) 07/18/17 05:00 Lymph % 11.8 % (21.0-51.0) L 07/18/17 05:00 [place] % 9.6 % (0.0-13.0) 07/18/17 05:00 Eos % 3.7 % (0.9-2.9) H 07/18/17 05:00 Baso % 0.7 % (0.2-1.0) 07/18/17 05:00 Neut # 6.9 x10^3/uL (2.2-4.8) H 07/18/17 05:00 Lymph # 1.1 X10^3/uL (1.3-2.9) L 07/18/17 05:00 [place] # 0.9 x10^3/uL (0.3-0.8) H 07/18/17 05:00 Eos # 0.3 x10^3/uL (0.0-0.2) H 07/18/17 05:00 Baso # 0.1 X10^3/uL (0.0-0.1) 07/18/17 05:00 Absolute Nucleated RBC 0.1 /100WBC 07/18/17 05:00 Sodium 134 mmol/L (136-145) L 07/18/17 05:00 Corrected Sodium TNP 07/18/17 05:00 Potassium 4.2 mmol/L (3.5-5.1) 07/18/17 05:00 Chloride 101 mmol/L (98-107) 07/18/17 05:00 Carbon Dioxide 26.9 mmol/L (21-32) 07/18/17 05:00 BUN 16 mg/dL (7-18) 07/18/17 05:00 Creatinine 0.90 mg/dL (0.70-1.30) 07/18/17 05:00 Est GFR (MDRD) Af Amer > 60 (>60) 07/18/17 05:00 Est GFR (MDRD) Non-Af > 60 (>60) 07/18/17 05:00 Glucose 84 mg/dL (65-99) 07/18/17 05:00 Calcium 8.9 mg/dL (8.5-10.1) 07/18/17 05:00 Corrected Calcium 9.5 mg/dL (8.5-10.1) 07/18/17 05:00 Total Bilirubin 0.70 mg/dL (0.2-1.0) 07/18/17 05:00 AST 85 Units/L (15-37) H 07/18/17 05:00 ALT 50 Units/L (12-78) 07/18/17 05:00 Alkaline Phosphatase 33 Units/L (46-116) L 07/18/17 05:00 Creatine Kinase 1180 Units/L (39-308) H 07/18/17 05:00 CK-MB (CK-2) 4.4 ng/mL (0-4.0) H* 07/18/17 05:00 CK/CKMB % Calc 0.4 % (<4) 07/18/17 05:00 Troponin I 0.03 ng/mL (0-1.5) 07/18/17 05:00 Total Protein 6.2 g/dL (6.4-8.2) L 07/18/17 05:00 Albumin 3.2 g/dL (3.4-5.0) L 07/18/17 05:00 Globulin 3.0 g/dL (2.5-4.5) 07/18/17 05:00 Albumin/Globulin Ratio 1.1 Ratio (1.1-2.1) 07/18/17 05:00 Prealbumin 15.6 mg/dL (18-35.7) L 07/15/17 12:00 Specimen Type Catherized urine 07/17/17 11:18 Urine Color Yellow (YELLOW) 07/17/17 11:18 Urine Appearance Slightly hazy (CLEAR) 07/17/17 11:18 Urine pH 7.0 (5.0 - 8.0) 07/17/17 11:18 Ur Specific [place] 1.010 (1.000-1.030) 07/17/17 11:18 Urine Protein 1+ (NEGATIVE) 07/17/17 11:18 Urine Glucose (UA) Negative (NEGATIVE) 07/17/17 11:18 Urine Ketones Negative (NEGATIVE) 07/17/17 11:18 Urine Occult Blood 5+ (NEGATIVE) 07/17/17 11:18 Urine Nitrite Negative (NEGATIVE) 07/17/17 11:18 Urine Bilirubin Negative (NEGATIVE) 07/17/17 11:18 Urine Urobilinogen Normal (NORMAL) 07/17/17 11:18 Ur Leukocyte Esterase Negative (NEGATIVE) 07/17/17 11:18 Urine RBC 40-50 /HPF (NEGATIVE) 07/17/17 11:18 Urine WBC 0-3 /HPF (NEGATIVE) 07/17/17 11:18 Ur Squamous Epith Cells Negative /HPF (NEGATIVE) 07/17/17 11:18 Urine Bacteria Negative /HPF (NEGATIVE) 07/17/17 11:18 Ur Culture Indicated? No/not indicated 07/17/17 11:18 - Plan (1) Rhabdomyolysis Status: Acute Qualifiers: Rhabdomyolysis type: traumatic Encounter type: initial encounter Qualified Code(s): T79.6XXA - Traumatic ischemia of muscle, initial encounter Plan: NORMAL SALINE AT 75ML/HR, PROCALAMINE AT 40ML/HR, BRAIN CT DUE TO FALL, PHYSICAL THERAPY DUE TO WEAKNESS, CONTINUE TO MONITOR (2) Fall Status: Acute Qualifiers: Encounter type: initial encounter Qualified Code(s): W19.XXXA - Unspecified fall, initial encounter Plan: BRAIN CT WITHOUT CONTRAST, PHYSICAL THERAPY CONSULT, CONTINUE TO MONITOR (3) Protein deficiency Status: Acute Plan: PROCALAMINE AT 40ML/HR, ALBUMIN 25% IV DAILY, CONTINUE TO MONITOR (4) Agitation Status: Acute Plan: ZYPREXA 2.5MG BID, CONTINUE TO MONITOR (5) Urinary retention Status: Acute Plan: FLOMAX 0.4MG PO BID, CONTINUE TO MONITOR
[2017-07-19 06:32] LABS: BASOPHILS % (AUTO) 0.6 % (0.2-1.0); EOSINOPHILS # (AUTO) 0.4 x10^3/uL (0.0-0.2); EOSINOPHILS % (AUTO) 5.6 % (0.9-2.9); HEMATOCRIT 39.8 % (42.0-54.0); HEMOGLOBIN 13.4 g/dL (13.5-18.0); MEAN CORPUSCULAR HEMOGLOBIN 28.5 pg (27.0-34.0); MEAN CORPUSCULAR HGB CONC 33.6 g/dL (33.0-35.0); MEAN CORPUSCULAR VOLUME 84.6 fL (80.0-100.0); MONOCYTES # (AUTO) 0.7 x10^3/uL (0.3-0.8); MONOCYTES % (AUTO) 10.6 % (0.0-13.0); NEUTROPHILS # (AUTO) 4.6 x10^3/uL (2.2-4.8); NEUTROPHILS % (AUTO) 68.2 % (42.0-75.0); PLATELET COUNT 238 X10^3/uL (150.0-450.0); RED BLOOD COUNT 4.71 X10^6/uL (4.7-6.0); RED CELL DISTRIBUTION WIDTH 14.4 % (11.6-16.5); WHITE BLOOD COUNT 6.8 X10^3/uL (3.6-10.0)
[2017-07-19 06:47] LABS: ALANINE AMINOTRANSFERASE 40 Units/L (12-78); ALBUMIN 3.3 g/dL (3.4-5.0); ALKALINE PHOSPHATASE 31 Units/L (46-116); ASPARTATE AMINO TRANSFERASE 48 Units/L (15-37); BLOOD UREA NITROGEN 18 mg/dL (7-18); CALCIUM 8.7 mg/dL (8.5-10.1); CARBON DIOXIDE 27.1 mmol/L (21-32); CHLORIDE 101 mmol/L (98-107); COR CA(FOR HYPOALB) 9.3 mg/dL (8.5-10.1); CREATININE 0.88 mg/dL (0.70-1.30); SODIUM 134 mmol/L (136-145); TOTAL PROTEIN 6.1 g/dL (6.4-8.2); eGFR BLACK RACES > 60 (>60); eGFR NON BLACK RACES > 60 (>60)
[2017-07-19 07:10] LABS: CKMB % 0.5 % (<4); CREATINE KINASE MB 2.3 ng/mL (0-4.0); TROPONIN I 0.02 ng/mL (0-1.5)
[2017-07-19] MEDS: NS 1000 ML 1,000 ML IV SCH ×2 (07:30→22:00)
[2017-07-19] MEDS: ASPIRIN EC 81 MG PO SCH (08:15)
[2017-07-19] MEDS: COZAAR PO SCH (08:15)
[2017-07-19] MEDS: ALBUMIN HUMAN 25%- 100ML 100 ML IV SCH (08:15)
[2017-07-19] MEDS: MEGACE PO SCH ×2 (08:16→20:33)
[2017-07-19] MEDS: FLOMAX PO SCH ×2 (08:16→20:33)
[2017-07-19] MEDS: MILK OF MAGNESIA PO SCH (08:17)
[2017-07-19] MEDS: NORVASC TAB 5 MG PO SCH (08:17)
[2017-07-19] MEDS: ROCEPHIN VIAL 1 GM 1 GM in NS 100 ML IV + SPIKE MINIBAG* 100 ML IV SCH (08:18)
--- NOTE | 2017-07-19 09:52 | PCM.PROG ---
Progress Note - Progress Note for Day of Date: 07/19/17 - Subjective Subjective: IS BEING TREATED FOR RHABDOMYOLYSIS AND WEAKNESS TO THE LOWER EXTREMITIES. TODAY, HE IS ALERT AND ORIENTED, SITTING UP IN BED PLAYING CARDS. PATIENTS SON IS AT BEDSIDE. HE CONTINUES WITH COMPLAINTS OF GENERALIZED WEAKNESS, BUT REPORTS CONTINUED IMPROVEMENT SINCE PREVIOUS DAY. PATIENTS SON REPORTS THAT PATIENT SLEPT BETTER THROUGHOUT THE NIGHT. ON EXAMINATION, HEART IS REGULAR IN RATE AND RHYTHM. BILATERAL LUNGS ARE NOTED TO BE CLEAR TO AUSCULTATION. ABDOMEN IS ROUND, SOFT, AND NOTED WITH MILD, SUPRAPUBIC TENDERNESS ON PALPATION. NORMAL BOWEL SOUNDS NOTED IN ALL QUADRANTS. THERE IS NORMAL RANGE OF MOTION NOTED TO ALL EXTREMITIES. HIS VITALS THIS MORNING ARE 97.5-98-24-97%-139/87. LABS WERE OBTAINED THIS MORNING. ABNORMAL LAB VALUES INCLUDE THE FOLLOWING: HHGB 13.4, HCT 39.8, SODIUM 134, AST 48, ALK PHOS 31, TOTAL PROTEIN 6.1, ALBUMIN 3.3. CREATINE KINASE HAS DECREASED FROM 1180 TO 468. STAFF REPORTS THAT PATIENT WAS MORE COMPLIANT WITH PHYSICAL THERAPY YESTERDAY. HE CONTINUES WITH WEAKNESS AND IS UNSTEADY ON AMBULATION. WE FEEL THAT HE MAY BENEFIT FROM BEING CHANGED TO SWINGBED FOR AN EXTENDED PERIOD OF PHYSICAL THERAPY AND REHAB. PATIENT AND FAMILY AGREE. WE WILL DISCUSS THIS WITH CASE MANAGEMENT. OTHERWISE, WE WILL CONTINUE WITH CURRENT PLAN OF CARE AND AGGRESSIVE IV HYDRATION. WE PLAN TO FOLLOW UP WITH AM LABS AND CONTINUE TO MONITOR PATIENT. - Past Medical Family Social History Past Med/Fam/Surg Hx: No changes since H&P Allergies: Allergies No Known Allergies [NKA] Allergy (Verified 07/16/17 11:11) - Review of Systems ROS: No change since H&P - Vital Signs and I&O's Vital Signs: Temperature 97.5 F Pulse Rate [Left] 98 Pulse Rate 75 Respiratory Rate 24 Blood Pressure [Right Arm] 139/87 Blood Pressure [Left Arm] 175/105 Blood Pressure 143/89 O2 Sat by Pulse Oximetry 97 Intake and Output: Intake & Output 07/16/17 07/17/17 07/18/17 07/19/17 11:59 11:59 11:59 11:59 Intake Total 820 1618 3097 1800 Output Total 844 979 4195 2550 Balance 245 5948 -742 -274 - Physical Exam Oriented: Normal Eyes: Normal. negative: Blurred Vision, Diplopia, Discharge, Pain, Redness, Photophobia, Other Ear: Normal. negative: Right, Left, Swelling, Ecchymosis, Hemotypanum, Abrasion , Laceration Nose: Normal. negative: Injected, Discharge, Blood, Other Throat: Normal. negative: Tonsillar Hypertrophy, Red, Exudate, Dry, Other Respiratory: Generalized Cardiovascular: negative: Normal, Tachycardia, Bradycardia, Irregular, S3, S4, Systolic, Diastolic, Murmur, Edema, Other : Normal Auscultation: Bowel Sounds: Normal. negative: Bruit, Absent, Increased, Decreased, High Pitched, Other Palpation: Normal Tenderness: Suprapubic, Mild. negative: Rebound, Guarding, Rigidity Skin: Decreased Turgur Musculoskeletal: Right, Left, Leg (bilateral lower extremity weakness ), Instability Psychiatric: Normal Mood Description: Calm Affect: Normal Speech Pattern: Clear, Appropriate - Laboratory and Diagnostics Result Diagrams: 07/19/17 05:35 07/19/17 05:35 Labs: Laboratory WBC 6.8 X10^3/uL (3.6-10.0) 07/19/17 05:35 RBC 4.71 X10^6/uL (4.7-6.0) 07/19/17 05:35 Hgb 13.4 g/dL (13.5-18.0) L 07/19/17 05:35 Hct 39.8 % (42.0-54.0) L 07/19/17 05:35 MCV 84.6 fL (80.0-100.0) 07/19/17 05:35 MCH 28.5 pg (27.0-34.0) 07/19/17 05:35 MCHC 33.6 g/dL (33.0-35.0) 07/19/17 05:35 RDW 14.4 % (11.6-16.5) 07/19/17 05:35 Plt Count 238 X10^3/uL (150.0-450.0) 07/19/17 05:35 MPV 8.0 fL (7.4-11.0) 07/19/17 05:35 Neut % 68.2 % (42.0-75.0) 07/19/17 05:35 Lymph % 15.0 % (21.0-51.0) L 07/19/17 05:35 [place] % 10.6 % (0.0-13.0) 07/19/17 05:35 Eos % 5.6 % (0.9-2.9) H 07/19/17 05:35 Baso % 0.6 % (0.2-1.0) 07/19/17 05:35 Neut # 4.6 x10^3/uL (2.2-4.8) 07/19/17 05:35 Lymph # 1.0 X10^3/uL (1.3-2.9) L 07/19/17 05:35 [place] # 0.7 x10^3/uL (0.3-0.8) 07/19/17 05:35 Eos # 0.4 x10^3/uL (0.0-0.2) H 07/19/17 05:35 Baso # 0.0 X10^3/uL (0.0-0.1) 07/19/17 05:35 Absolute Nucleated RBC 0.1 /100WBC 07/19/17 05:35 Sodium 134 mmol/L (136-145) L 07/19/17 05:35 Corrected Sodium TNP 07/19/17 05:35 Potassium 4.2 mmol/L (3.5-5.1) 07/19/17 05:35 Chloride 101 mmol/L (98-107) 07/19/17 05:35 Carbon Dioxide 27.1 mmol/L (21-32) 07/19/17 05:35 BUN 18 mg/dL (7-18) 07/19/17 05:35 Creatinine 0.88 mg/dL (0.70-1.30) 07/19/17 05:35 Est GFR (MDRD) Af Amer > 60 (>60) 07/19/17 05:35 Est GFR (MDRD) Non-Af > 60 (>60) 07/19/17 05:35 Glucose 85 mg/dL (65-99) 07/19/17 05:35 Calcium 8.7 mg/dL (8.5-10.1) 07/19/17 05:35 Corrected Calcium 9.3 mg/dL (8.5-10.1) 07/19/17 05:35 Total Bilirubin 0.50 mg/dL (0.2-1.0) 07/19/17 05:35 AST 48 Units/L (15-37) H 07/19/17 05:35 ALT 40 Units/L (12-78) 07/19/17 05:35 Alkaline Phosphatase 31 Units/L (46-116) L 07/19/17 05:35 Creatine Kinase 468 Units/L (39-308) H 07/19/17 05:35 CK-MB (CK-2) 2.3 ng/mL (0-4.0) 07/19/17 05:35 CK/CKMB % Calc 0.5 % (<4) 07/19/17 05:35 Troponin I 0.02 ng/mL (0-1.5) 07/19/17 05:35 Total Protein 6.1 g/dL (6.4-8.2) L 07/19/17 05:35 Albumin 3.3 g/dL (3.4-5.0) L 07/19/17 05:35 Globulin 2.8 g/dL (2.5-4.5) 07/19/17 05:35 Albumin/Globulin Ratio 1.2 Ratio (1.1-2.1) 07/19/17 05:35 Prealbumin 15.6 mg/dL (18-35.7) L 07/15/17 12:00 Specimen Type Catherized urine 07/17/17 11:18 Urine Color Yellow (YELLOW) 07/17/17 11:18 Urine Appearance Slightly hazy (CLEAR) 07/17/17 11:18 Urine pH 7.0 (5.0 - 8.0) 07/17/17 11:18 Ur Specific [place] 1.010 (1.000-1.030) 07/17/17 11:18 Urine Protein 1+ (NEGATIVE) 07/17/17 11:18 Urine Glucose (UA) Negative (NEGATIVE) 07/17/17 11:18 Urine Ketones Negative (NEGATIVE) 07/17/17 11:18 Urine Occult Blood 5+ (NEGATIVE) 07/17/17 11:18 Urine Nitrite Negative (NEGATIVE) 07/17/17 11:18 Urine Bilirubin Negative (NEGATIVE) 07/17/17 11:18 Urine Urobilinogen Normal (NORMAL) 07/17/17 11:18 Ur Leukocyte Esterase Negative (NEGATIVE) 07/17/17 11:18 Urine RBC 40-50 /HPF (NEGATIVE) 07/17/17 11:18 Urine WBC 0-3 /HPF (NEGATIVE) 07/17/17 11:18 Ur Squamous Epith Cells Negative /HPF (NEGATIVE) 07/17/17 11:18 Urine Bacteria Negative /HPF (NEGATIVE) 07/17/17 11:18 Ur Culture Indicated? No/not indicated 07/17/17 11:18 - Plan (1) Rhabdomyolysis Status: Acute Qualifiers: Rhabdomyolysis type: traumatic Encounter type: initial encounter Qualified Code(s): T79.6XXA - Traumatic ischemia of muscle, initial encounter Plan: NORMAL SALINE AT 75ML/HR, PROCALAMINE AT 40ML/HR, BRAIN CT DUE TO FALL, PHYSICAL THERAPY DUE TO WEAKNESS, CONTINUE TO MONITOR (2) Fall Status: Acute Qualifiers: Encounter type: initial encounter Qualified Code(s): W19.XXXA - Unspecified fall, initial encounter Plan: BRAIN CT WITHOUT CONTRAST, PHYSICAL THERAPY CONSULT, CONTINUE TO MONITOR (3) Protein deficiency Status: Acute Plan: PROCALAMINE AT 40ML/HR, ALBUMIN 25% IV DAILY, CONTINUE TO MONITOR (4) Agitation Status: Acute Plan: ZYPREXA 2.5MG BID, CONTINUE TO MONITOR (5) Urinary retention Status: Acute Plan: FLOMAX 0.4MG PO BID, CONTINUE TO MONITOR
[2017-07-19] MEDS ORDERED: ROBITUSSIN DM PO PRN (13:40)
[2017-07-19] MEDS: PROCALAMINE 3 % 1,000 ML IV SCH (13:42)
[2017-07-19] MEDS: VISTARIL PO PRN (20:33)
[2017-07-19] MEDS: COLACE CAP 100 MG PO SCH (20:33)
[2017-07-20 06:48] LABS: BASOPHILS % (AUTO) 0.5 % (0.2-1.0); EOSINOPHILS # (AUTO) 0.3 x10^3/uL (0.0-0.2); EOSINOPHILS % (AUTO) 3.4 % (0.9-2.9); HEMATOCRIT 40.5 % (42.0-54.0); HEMOGLOBIN 13.6 g/dL (13.5-18.0); LYMPHOCYTES % (AUTO) 12.9 % (21.0-51.0); MEAN CORPUSCULAR HEMOGLOBIN 28.5 pg (27.0-34.0); MEAN CORPUSCULAR HGB CONC 33.6 g/dL (33.0-35.0); MEAN CORPUSCULAR VOLUME 84.8 fL (80.0-100.0); MEAN PLATELET VOLUME 8.2 fL (7.4-11.0); MONOCYTES # (AUTO) 0.7 x10^3/uL (0.3-0.8); MONOCYTES % (AUTO) 9.6 % (0.0-13.0); NEUTROPHILS # (AUTO) 5.6 x10^3/uL (2.2-4.8); NEUTROPHILS % (AUTO) 73.6 % (42.0-75.0); PLATELET COUNT 272 X10^3/uL (150.0-450.0); RED BLOOD COUNT 4.78 X10^6/uL (4.7-6.0); RED CELL DISTRIBUTION WIDTH 14.3 % (11.6-16.5); WHITE BLOOD COUNT 7.6 X10^3/uL (3.6-10.0)
[2017-07-20 06:59] LABS: ALANINE AMINOTRANSFERASE 41 Units/L (12-78); ALBUMIN 3.7 g/dL (3.4-5.0); ALKALINE PHOSPHATASE 35 Units/L (46-116); ASPARTATE AMINO TRANSFERASE 35 Units/L (15-37); BLOOD UREA NITROGEN 15 mg/dL (7-18); CALCIUM 9.1 mg/dL (8.5-10.1); CARBON DIOXIDE 28.5 mmol/L (21-32); CHLORIDE 100 mmol/L (98-107); CKMB % 0.8 % (<4); CREATINE KINASE 333 Units/L (39-308); CREATINE KINASE MB 2.6 ng/mL (0-4.0); CREATININE 0.77 mg/dL (0.70-1.30); SODIUM 134 mmol/L (136-145); TOTAL PROTEIN 6.8 g/dL (6.4-8.2); TROPONIN I < 0.02 ng/mL (0-1.5); eGFR BLACK RACES > 60 (>60); eGFR NON BLACK RACES > 60 (>60)
[2017-07-20] MEDS: VISTARIL PO PRN ×2 (09:46→17:27)
[2017-07-20] MEDS: ROCEPHIN VIAL 1 GM 1 GM in NS 100 ML IV + SPIKE MINIBAG* 100 ML IV SCH (09:47)
[2017-07-20] MEDS: ALBUMIN HUMAN 25%- 100ML 100 ML IV SCH (09:47)
[2017-07-20] MEDS: COZAAR PO SCH (09:48)
[2017-07-20] MEDS: MEGACE PO SCH ×2 (09:48→20:52)
[2017-07-20] MEDS: FLOMAX PO SCH ×2 (09:48→20:52)
[2017-07-20] MEDS: MILK OF MAGNESIA PO SCH (09:48)
[2017-07-20] MEDS: ASPIRIN EC 81 MG PO SCH (09:48)
[2017-07-20] MEDS: NORVASC TAB 5 MG PO SCH (09:49)
[2017-07-20] MEDS: PROCALAMINE 3 % 1,000 ML IV SCH (14:42)
[2017-07-20] MEDS ORDERED: HALDOL INJ IVP ONE (16:14)
[2017-07-20] MEDS: NS 1000 ML 1,000 ML IV SCH ×2 (16:28→23:06)
[2017-07-20] MEDS: COLACE CAP 100 MG PO SCH (20:52)
[2017-07-20] MEDS: ULTRAM PO PRN (20:52)
[2017-07-21] MEDS: VISTARIL PO PRN (03:54)
[2017-07-21] MEDS: ULTRAM PO PRN (03:55)
[2017-07-21 04:00] LABS: BILIRUBIN,URINE NEGATIVE (NEGATIVE); BLOOD/HEMOGLOBIN,URINE 3+ (NEGATIVE); GLUCOSE, URINE NEGATIVE (NEGATIVE); KETONES,URINE NEGATIVE (NEGATIVE); LEUKOCYTE ESTERASE ,URINE 1+ (NEGATIVE); NITRITES,URINE NEGATIVE (NEGATIVE); PH,URINE 6.5 (5.0 - 8.0); PROTEIN,URINE NEGATIVE (NEGATIVE); UROBILINOGEN,URINE NORMAL (NORMAL)
[2017-07-21 04:21] LABS: APPEARANCE,URINE CLEAR (CLEAR); BACTERIA,URINE NEGATIVE /HPF (NEGATIVE); COLOR,URINE YELLOW (YELLOW); SQUAMOUS EPITHELIAL CELL,UR RARE /HPF (NEGATIVE)
[2017-07-21 06:26] LABS: BASOPHILS % (AUTO) 0.6 % (0.2-1.0); EOSINOPHILS # (AUTO) 0.2 x10^3/uL (0.0-0.2); EOSINOPHILS % (AUTO) 2.5 % (0.9-2.9); HEMATOCRIT 42.3 % (42.0-54.0); LYMPHOCYTES # (AUTO) 0.8 X10^3/uL (1.3-2.9); LYMPHOCYTES % (AUTO) 9.9 % (21.0-51.0); MEAN CORPUSCULAR HEMOGLOBIN 28.4 pg (27.0-34.0); MEAN CORPUSCULAR HGB CONC 33.1 g/dL (33.0-35.0); MEAN CORPUSCULAR VOLUME 85.9 fL (80.0-100.0); MEAN PLATELET VOLUME 7.7 fL (7.4-11.0); MONOCYTES # (AUTO) 0.9 x10^3/uL (0.3-0.8); NEUTROPHILS # (AUTO) 6.5 x10^3/uL (2.2-4.8); PLATELET COUNT 288 X10^3/uL (150.0-450.0); RED BLOOD COUNT 4.92 X10^6/uL (4.7-6.0); RED CELL DISTRIBUTION WIDTH 14.4 % (11.6-16.5); WHITE BLOOD COUNT 8.5 X10^3/uL (3.6-10.0)
--- NOTE | 2017-07-21 06:49 | RAD ---
HISTORY: Weakness, shortness of breath Study: Chest AP portable Comparison: 07/15/2017 Findings: The heart is within normal limits in size. The elis are normal. The lungs are hyperinflated but free of acute alveolar infiltrates. No definite pleural effusions are identified, however, it should be no ilda that the costophrenic angles are not included on the image. The bony thorax is unremarkable with the exception of right-sided glenohumeral degenerative joint disease. IMPRESSION: Lungs hyperinflated but clear Reported By:
[2017-07-21 07:10] LABS: ALANINE AMINOTRANSFERASE 40 Units/L (12-78); ALBUMIN 4.3 g/dL (3.4-5.0); ALKALINE PHOSPHATASE 39 Units/L (46-116); ASPARTATE AMINO TRANSFERASE 32 Units/L (15-37); BLOOD UREA NITROGEN 16 mg/dL (7-18); CALCIUM 9.6 mg/dL (8.5-10.1); CARBON DIOXIDE 27.2 mmol/L (21-32); CHLORIDE 98 mmol/L (98-107); CKMB % 1.4 % (<4); CREATINE KINASE 315 Units/L (39-308); SODIUM 133 mmol/L (136-145); TOTAL PROTEIN 7.7 g/dL (6.4-8.2); TROPONIN I < 0.02 ng/mL (0-1.5); eGFR BLACK RACES > 60 (>60); eGFR NON BLACK RACES > 60 (>60)
[2017-07-21 07:11] LABS: CREATINE KINASE MB 4.3 ng/mL (0-4.0)
[2017-07-21] MEDS: ALBUMIN HUMAN 25%- 100ML 100 ML IV SCH (08:35)
[2017-07-21] MEDS: COZAAR PO SCH (08:35)
[2017-07-21] MEDS: MEGACE PO SCH (08:35)
[2017-07-21] MEDS: MILK OF MAGNESIA PO SCH (08:35)
[2017-07-21] MEDS: FLOMAX PO SCH (08:36)
[2017-07-21] MEDS: NORVASC TAB 5 MG PO SCH (08:36)
[2017-07-21] MEDS: ASPIRIN EC 81 MG PO SCH (08:36)
[2017-07-21] MEDS: ROCEPHIN VIAL 1 GM 1 GM in NS 100 ML IV + SPIKE MINIBAG* 100 ML IV SCH (08:38)
[2017-07-21] MEDS ORDERED: VALIUM PO ONE (09:43)
--- NOTE | 2017-07-21 10:03 | PCM.PROG ---
Progress Note - Progress Note for Day of Date: 07/20/17 - Subjective Subjective: IS BEING TREATED FOR RHABDOMYOLYSIS AND WEAKNESS TO THE LOWER EXTREMITIES. TODAY, HE IS ALERT AND ORIENTED, LYING IN BED ON MORNING ROUNDS. HE CONTINUES WITH COMPLAINTS OF GENERALIZED WEAKNESS, UNCHANGED FROM YESTERDAY. STAFF REPORTS THAT PATIENT WAS DISORIENTED AND ATTEMPTED TO GET OUT OF BED SEVERAL TIMES THROUGHOUT THE NIGHT. ON EXAMINATION, HE IS SLIGHTLY TACHYCARDIC WITH HR NOTED TO BE 117 BPM. BILATERAL LUNGS ARE NOTED TO BE CLEAR TO AUSCULTATION. ABDOMEN IS ROUND, SOFT, AND NON-TENDER. NORMAL BOWEL SOUNDS NOTED IN ALL QUADRANTS. A BAIG CATHETER IS NOTED TO BEDSIDE DRAINAGE. THERE IS NORMAL RANGE OF MOTION NOTED TO ALL EXTREMITIES. HIS VITALS THIS MORNING ARE 98.4-117-20-96%-158/95. LABS WERE OBTAINED THIS MORNING. ABNORMAL LAB VALUES INCLUDE THE FOLLOWING: HCT 40.5, SODIUM 134, ALK PHOS 35, CREATINE KINASE 333. THIS IS A DECREASE FROM YESTERDAYS LEVELS OF 468. HE CONTINUES WITH WEAKNESS AND IS UNSTEADY ON AMBULATION. PHYSICAL THERAPY CONTINUES TO WORK WITH PATIENT. TODAY, WE WILL INCREASE ZYPREXA TO 5MG PO BID. OTHERWISE, WE WILL CONTINUE WITH CURRENT PLAN OF CARE. WE PLAN TO FOLLOW UP WITH AM LABS AND CONTINUE TO MONITOR PATIENT. - Past Medical Family Social History Past Med/Fam/Surg Hx: No changes since H&P Allergies: Allergies No Known Allergies [NKA] Allergy (Verified 07/16/17 11:11) - Review of Systems ROS: No change since H&P - Vital Signs and I&O's Vital Signs: Temperature 98.3 F Pulse Rate [Left] 96 Pulse Rate 113 Respiratory Rate 18 Blood Pressure [Right Arm] 159/81 Blood Pressure [Left Arm] 175/105 Blood Pressure 143/89 O2 Sat by Pulse Oximetry 97 Intake and Output: Intake & Output 07/18/17 07/19/17 07/20/17 07/21/17 11:59 11:59 11:59 11:59 Intake Total 3097 1800 2680 3502 Output Total 3400 2550 3700 3300 Balance -303 -570 -1029 202 - Physical Exam Oriented: Normal Eyes: Normal. negative: Blurred Vision, Diplopia, Discharge, Pain, Redness, Photophobia, Other Ear: Normal. negative: Right, Left, Swelling, Ecchymosis, Hemotypanum, Abrasion , Laceration Nose: Normal. negative: Injected, Discharge, Blood, Other Throat: Normal. negative: Tonsillar Hypertrophy, Red, Exudate, Dry, Other Respiratory: Normal Cardiovascular: negative: Normal, Tachycardia, Bradycardia, Irregular, S3, S4, Systolic, Diastolic, Murmur, Edema, Other : Normal Auscultation: Bowel Sounds: Normal. negative: Bruit, Absent, Increased, Decreased, High Pitched, Other Palpation: Normal Tenderness: Normal. negative: Rebound, Guarding, Rigidity Skin: Normal Musculoskeletal: Right, Left, Leg (bilateral lower extremity weakness ), Instability Psychiatric: Normal Mood Description: Calm Affect: Normal Speech Pattern: Clear, Appropriate - Laboratory and Diagnostics Result Diagrams: 07/21/17 05:57 07/21/17 05:57 Labs: Laboratory WBC 8.5 X10^3/uL (3.6-10.0) 07/21/17 05:57 RBC 4.92 X10^6/uL (4.7-6.0) 07/21/17 05:57 Hgb 14.0 g/dL (13.5-18.0) 07/21/17 05:57 Hct 42.3 % (42.0-54.0) 07/21/17 05:57 MCV 85.9 fL (80.0-100.0) 07/21/17 05:57 MCH 28.4 pg (27.0-34.0) 07/21/17 05:57 MCHC 33.1 g/dL (33.0-35.0) 07/21/17 05:57 RDW 14.4 % (11.6-16.5) 07/21/17 05:57 Plt Count 288 X10^3/uL (150.0-450.0) 07/21/17 05:57 MPV 7.7 fL (7.4-11.0) 07/21/17 05:57 Neut % 76.0 % (42.0-75.0) H 07/21/17 05:57 Lymph % 9.9 % (21.0-51.0) L 07/21/17 05:57 [place] % 11.0 % (0.0-13.0) 07/21/17 05:57 Eos % 2.5 % (0.9-2.9) 07/21/17 05:57 Baso % 0.6 % (0.2-1.0) 07/21/17 05:57 Neut # 6.5 x10^3/uL (2.2-4.8) H 07/21/17 05:57 Lymph # 0.8 X10^3/uL (1.3-2.9) L 07/21/17 05:57 [place] # 0.9 x10^3/uL (0.3-0.8) H 07/21/17 05:57 Eos # 0.2 x10^3/uL (0.0-0.2) 07/21/17 05:57 Baso # 0.0 X10^3/uL (0.0-0.1) 07/21/17 05:57 Absolute Nucleated RBC 0.0 /100WBC 07/21/17 05:57 Sodium 133 mmol/L (136-145) L 07/21/17 05:57 Corrected Sodium TNP 07/21/17 05:57 Potassium 4.2 mmol/L (3.5-5.1) 07/21/17 05:57 Chloride 98 mmol/L (98-107) 07/21/17 05:57 Carbon Dioxide 27.2 mmol/L (21-32) 07/21/17 05:57 BUN 16 mg/dL (7-18) 07/21/17 05:57 Creatinine 0.90 mg/dL (0.70-1.30) 07/21/17 05:57 Est GFR (MDRD) Af Amer > 60 (>60) 07/21/17 05:57 Est GFR (MDRD) Non-Af > 60 (>60) 07/21/17 05:57 Glucose 90 mg/dL (65-99) 07/21/17 05:57 Calcium 9.6 mg/dL (8.5-10.1) 07/21/17 05:57 Corrected Calcium TNP 07/21/17 05:57 Total Bilirubin 0.50 mg/dL (0.2-1.0) 07/21/17 05:57 AST 32 Units/L (15-37) 07/21/17 05:57 ALT 40 Units/L (12-78) 07/21/17 05:57 Alkaline Phosphatase 39 Units/L (46-116) L 07/21/17 05:57 Creatine Kinase 315 Units/L (39-308) H 07/21/17 05:57 CK-MB (CK-2) 4.3 ng/mL (0-4.0) H* 07/21/17 05:57 CK/CKMB % Calc 1.4 % (<4) 07/21/17 05:57 Troponin I < 0.02 ng/mL (0-1.5) 07/21/17 05:57 Total Protein 7.7 g/dL (6.4-8.2) 07/21/17 05:57 Albumin 4.3 g/dL (3.4-5.0) 07/21/17 05:57 Globulin 3.4 g/dL (2.5-4.5) 07/21/17 05:57 Albumin/Globulin Ratio 1.3 Ratio (1.1-2.1) 07/21/17 05:57 Prealbumin 15.6 mg/dL (18-35.7) L 07/15/17 12:00 Specimen Type Catherized urine 07/21/17 03:23 Urine Color Yellow (YELLOW) 07/21/17 03:23 Urine Appearance Clear (CLEAR) 07/21/17 03:23 Urine pH 6.5 (5.0 - 8.0) 07/21/17 03:23 Ur Specific [place] 1.015 (1.000-1.030) 07/21/17 03:23 Urine Protein Negative (NEGATIVE) 07/21/17 03:23 Urine Glucose (UA) Negative (NEGATIVE) 07/21/17 03:23 Urine Ketones Negative (NEGATIVE) 07/21/17 03:23 Urine Occult Blood 3+ (NEGATIVE) 07/21/17 03:23 Urine Nitrite Negative (NEGATIVE) 07/21/17 03:23 Urine Bilirubin Negative (NEGATIVE) 07/21/17 03:23 Urine Urobilinogen Normal (NORMAL) 07/21/17 03:23 Ur Leukocyte Esterase 1+ (NEGATIVE) 07/21/17 03:23 Urine RBC 2-6 /HPF (NEGATIVE) 07/21/17 03:23 Urine WBC 0-3 /HPF (NEGATIVE) 07/21/17 03:23 Ur Squamous Epith Cells Rare /HPF (NEGATIVE) 07/21/17 03:23 Urine Bacteria Negative /HPF (NEGATIVE) 07/21/17 03:23 Ur Culture Indicated? No/not indicated 07/21/17 03:23 - Plan (1) Rhabdomyolysis Status: Acute Qualifiers: Rhabdomyolysis type: traumatic Encounter type: initial encounter Qualified Code(s): T79.6XXA - Traumatic ischemia of muscle, initial encounter Plan: NORMAL SALINE AT 75ML/HR, PROCALAMINE AT 40ML/HR, PHYSICAL THERAPY DUE TO WEAKNESS, CONTINUE TO MONITOR (2) Fall Status: Acute Qualifiers: Encounter type: initial encounter Qualified Code(s): W19.XXXA - Unspecified fall, initial encounter Plan: BRAIN CT WITHOUT CONTRAST, PHYSICAL THERAPY CONSULT, CONTINUE TO MONITOR (3) Protein deficiency Status: Acute Plan: PROCALAMINE AT 40ML/HR, ALBUMIN 25% IV DAILY, CONTINUE TO MONITOR (4) Agitation Status: Acute Plan: ZYPREXA 5MG BID, CONTINUE TO MONITOR (5) Urinary retention Status: Acute Plan: FLOMAX 0.4MG PO BID, CONTINUE TO MONITOR
--- NOTE | 2017-07-21 10:17 | PCM.PROG ---
Progress Note - Progress Note for Day of Date: 07/21/17 - Subjective Subjective: WAS ADMITTED FOR RHABDOMYOLYSIS AND WEAKNESS TO LOWER EXTREMITIES. RHABDOMYOLYSIS HAS RESOLVED. TODAY, PATIENT IS LYING WITH EYES OPEN ON MORNING ROUNDS. HE IS NOTED TO BE DISORIENTED AND CONTINUES WITH GENERALIZED WEAKNESS. STAFF REPORTS THAT PATIENT CONTINUED WITH DISORIENTATION AND CLIMING OUT OF BED UNASSISTED THROUGHOUT THE NIGHT. ON EXAMINATION, HEART IS REGULAR IN RATE AND RHYTHM. BILATERAL LUNGS ARE NOTED TO BE CLEAR TO AUSCULTATION. ABDOMEN IS ROUND, SOFT, AND NON-TENDER. NORMAL BOWEL SOUNDS NOTED IN ALL QUADRANTS. A BAIG CATHETER IS NOTED TO BEDSIDE DRAINAGE. HIS VITALS THIS MORNING ARE 98.3-96-18-99%-159/81. LABS WERE OBTAINED THIS MORNING. ABNORMAL LAB VALUES INCLUDE THE FOLLOWING: SODIUM 133, ALK PHOS 39. CREATINE KINASE HAS RETURNED TO NORMAL LEVELS. HE IS HEMODYNAMICALLY STABLE. PHYSICAL THERAPY UNABLE TO WORK WITH PATIENT TODAY DUE TO DISORIENTATION AND AGITATION. WE FEEL THAT PATIENT MAY BENEFIT FROM BEING EVALUATED AT THE BEHAVIORAL UNIT. FAMILY IS IN AGREEMENT. TODAY, WE WILL CONTACT THE BEHAVIORAL UNIT IN [place], [place]. PATIENT IS MEDICALLY CLEAR AND STABLE FOR TRANSFER TO THE UNIT IF THEY ACCEPT. OTHERWISE, WE WILL CONTINUE WITH CURRENT PLAN OF CARE UNTIL THEN. WE PLAN TO FOLLOW UP WITH AM LABS AND CONTINUE TO MONITOR PATIENT. - Past Medical Family Social History Past Med/Fam/Surg Hx: No changes since H&P Allergies: Allergies No Known Allergies [NKA] Allergy (Verified 07/16/17 11:11) - Review of Systems ROS: No change since H&P - Vital Signs and I&O's Vital Signs: Temperature 98.3 F Pulse Rate [Left] 96 Pulse Rate 113 Respiratory Rate 18 Blood Pressure [Right Arm] 159/81 Blood Pressure [Left Arm] 175/105 Blood Pressure 143/89 O2 Sat by Pulse Oximetry 97 Intake and Output: Intake & Output 07/18/17 07/19/17 07/20/17 07/21/17 11:59 11:59 11:59 11:59 Intake Total 3097 1800 2680 3502 Output Total 3400 2550 3700 3300 Balance -303 -184 -1020 202 - Physical Exam Oriented: Unable to test Eyes: Normal. negative: Blurred Vision, Diplopia, Discharge, Pain, Redness, Photophobia, Other Ear: Normal. negative: Right, Left, Swelling, Ecchymosis, Hemotypanum, Abrasion , Laceration Nose: Normal. negative: Injected, Discharge, Blood, Other Throat: Normal. negative: Tonsillar Hypertrophy, Red, Exudate, Dry, Other Respiratory: Normal Cardiovascular: negative: Normal, Tachycardia, Bradycardia, Irregular, S3, S4, Systolic, Diastolic, Murmur, Edema, Other : Normal Auscultation: Bowel Sounds: Normal. negative: Bruit, Absent, Increased, Decreased, High Pitched, Other Palpation: Normal Tenderness: Normal. negative: Rebound, Guarding, Rigidity Skin: Decreased Turgur Musculoskeletal: Right, Left, Leg (bilateral lower extremity weakness ), Instability Psychiatric: Other (DISORIENTED ) Mood Description: Calm Affect: Normal Speech Pattern: Unclear, Inappropriate - Laboratory and Diagnostics Result Diagrams: 07/21/17 05:57 07/21/17 05:57 Labs: Laboratory WBC 8.5 X10^3/uL (3.6-10.0) 07/21/17 05:57 RBC 4.92 X10^6/uL (4.7-6.0) 07/21/17 05:57 Hgb 14.0 g/dL (13.5-18.0) 07/21/17 05:57 Hct 42.3 % (42.0-54.0) 07/21/17 05:57 MCV 85.9 fL (80.0-100.0) 07/21/17 05:57 MCH 28.4 pg (27.0-34.0) 07/21/17 05:57 MCHC 33.1 g/dL (33.0-35.0) 07/21/17 05:57 RDW 14.4 % (11.6-16.5) 07/21/17 05:57 Plt Count 288 X10^3/uL (150.0-450.0) 07/21/17 05:57 MPV 7.7 fL (7.4-11.0) 07/21/17 05:57 Neut % 76.0 % (42.0-75.0) H 07/21/17 05:57 Lymph % 9.9 % (21.0-51.0) L 07/21/17 05:57 [place] % 11.0 % (0.0-13.0) 07/21/17 05:57 Eos % 2.5 % (0.9-2.9) 07/21/17 05:57 Baso % 0.6 % (0.2-1.0) 07/21/17 05:57 Neut # 6.5 x10^3/uL (2.2-4.8) H 07/21/17 05:57 Lymph # 0.8 X10^3/uL (1.3-2.9) L 07/21/17 05:57 [place] # 0.9 x10^3/uL (0.3-0.8) H 07/21/17 05:57 Eos # 0.2 x10^3/uL (0.0-0.2) 07/21/17 05:57 Baso # 0.0 X10^3/uL (0.0-0.1) 07/21/17 05:57 Absolute Nucleated RBC 0.0 /100WBC 07/21/17 05:57 Sodium 133 mmol/L (136-145) L 07/21/17 05:57 Corrected Sodium TNP 07/21/17 05:57 Potassium 4.2 mmol/L (3.5-5.1) 07/21/17 05:57 Chloride 98 mmol/L (98-107) 07/21/17 05:57 Carbon Dioxide 27.2 mmol/L (21-32) 07/21/17 05:57 BUN 16 mg/dL (7-18) 07/21/17 05:57 Creatinine 0.90 mg/dL (0.70-1.30) 07/21/17 05:57 Est GFR (MDRD) Af Amer > 60 (>60) 07/21/17 05:57 Est GFR (MDRD) Non-Af > 60 (>60) 07/21/17 05:57 Glucose 90 mg/dL (65-99) 07/21/17 05:57 Calcium 9.6 mg/dL (8.5-10.1) 07/21/17 05:57 Corrected Calcium TNP 07/21/17 05:57 Total Bilirubin 0.50 mg/dL (0.2-1.0) 07/21/17 05:57 AST 32 Units/L (15-37) 07/21/17 05:57 ALT 40 Units/L (12-78) 07/21/17 05:57 Alkaline Phosphatase 39 Units/L (46-116) L 07/21/17 05:57 Creatine Kinase 315 Units/L (39-308) H 07/21/17 05:57 CK-MB (CK-2) 4.3 ng/mL (0-4.0) H* 07/21/17 05:57 CK/CKMB % Calc 1.4 % (<4) 07/21/17 05:57 Troponin I < 0.02 ng/mL (0-1.5) 07/21/17 05:57 Total Protein 7.7 g/dL (6.4-8.2) 07/21/17 05:57 Albumin 4.3 g/dL (3.4-5.0) 07/21/17 05:57 Globulin 3.4 g/dL (2.5-4.5) 07/21/17 05:57 Albumin/Globulin Ratio 1.3 Ratio (1.1-2.1) 07/21/17 05:57 Prealbumin 15.6 mg/dL (18-35.7) L 07/15/17 12:00 Specimen Type Catherized urine 07/21/17 03:23 Urine Color Yellow (YELLOW) 07/21/17 03:23 Urine Appearance Clear (CLEAR) 07/21/17 03:23 Urine pH 6.5 (5.0 - 8.0) 07/21/17 03:23 Ur Specific [place] 1.015 (1.000-1.030) 07/21/17 03:23 Urine Protein Negative (NEGATIVE) 07/21/17 03:23 Urine Glucose (UA) Negative (NEGATIVE) 07/21/17 03:23 Urine Ketones Negative (NEGATIVE) 07/21/17 03:23 Urine Occult Blood 3+ (NEGATIVE) 07/21/17 03:23 Urine Nitrite Negative (NEGATIVE) 07/21/17 03:23 Urine Bilirubin Negative (NEGATIVE) 07/21/17 03:23 Urine Urobilinogen Normal (NORMAL) 07/21/17 03:23 Ur Leukocyte Esterase 1+ (NEGATIVE) 07/21/17 03:23 Urine RBC 2-6 /HPF (NEGATIVE) 07/21/17 03:23 Urine WBC 0-3 /HPF (NEGATIVE) 07/21/17 03:23 Ur Squamous Epith Cells Rare /HPF (NEGATIVE) 07/21/17 03:23 Urine Bacteria Negative /HPF (NEGATIVE) 07/21/17 03:23 Ur Culture Indicated? No/not indicated 07/21/17 03:23 - Plan (1) Rhabdomyolysis Status: Acute Qualifiers: Rhabdomyolysis type: traumatic Encounter type: initial encounter Qualified Code(s): T79.6XXA - Traumatic ischemia of muscle, initial encounter Plan: NORMAL SALINE AT 75ML/HR, PROCALAMINE AT 40ML/HR, PHYSICAL THERAPY DUE TO WEAKNESS, CONTINUE TO MONITOR (2) Fall Status: Acute Qualifiers: Encounter type: initial encounter Qualified Code(s): W19.XXXA - Unspecified fall, initial encounter Plan: PHYSICAL THERAPY CONSULT, CONTINUE TO MONITOR (3) Protein deficiency Status: Acute Plan: PROCALAMINE AT 40ML/HR, ALBUMIN 25% IV DAILY, CONTINUE TO MONITOR (4) Agitation Status: Acute Plan: ZYPREXA 5MG BID, CONTINUE TO MONITOR (5) Urinary retention Status: Acute Plan: FLOMAX 0.4MG PO BID, CONTINUE TO MONITOR
--- NOTE | 2017-07-21 11:39 | CT ---
CT head without contrast Indication: Weakness, altered mental status Comparison: 07/15/2017 Technique: CT images of the head were obtained without contrast. Automatic exposure control was utili zed. Findings: There is generalized brain atrophy with concomitant ventricular and sulcal enlargement, sim ilar to prior. Additionally, there are patchy and confluent areas of white matter hypoattenuation, mo st suggestive for chronic microangiopathy. 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 Dion tional chronic lacunar infarcts of the bilateral basal ganglia and thalami are noted as well. There i s no acute bleed, mass effect, or abnormal extra-axial collection. No significant skeletal abnormalit y. The visualized paranasal sinuses and mastoid air cells are clear. Impression: No acute intracranial abnormality. Advanced microangiopathy, chronic infarcts as above. Reported By:
[2017-07-21] MEDS: PROCALAMINE 3 % 1,000 ML IV SCH (18:08)
[2017-07-21] MEDS: NS 1000 ML 1,000 ML IV SCH (19:39)
[2017-07-22 06:16] LABS: BASOPHILS # (AUTO) 0.1 X10^3/uL (0.0-0.1); BASOPHILS % (AUTO) 0.7 % (0.2-1.0); EOSINOPHILS # (AUTO) 0.4 x10^3/uL (0.0-0.2); EOSINOPHILS % (AUTO) 4.5 % (0.9-2.9); HEMATOCRIT 40.8 % (42.0-54.0); HEMOGLOBIN 13.6 g/dL (13.5-18.0); LYMPHOCYTES # (AUTO) 0.7 X10^3/uL (1.3-2.9); LYMPHOCYTES % (AUTO) 8.3 % (21.0-51.0); MEAN CORPUSCULAR HEMOGLOBIN 28.4 pg (27.0-34.0); MEAN CORPUSCULAR HGB CONC 33.3 g/dL (33.0-35.0); MEAN CORPUSCULAR VOLUME 85.3 fL (80.0-100.0); MEAN PLATELET VOLUME 8.4 fL (7.4-11.0); MONOCYTES # (AUTO) 0.9 x10^3/uL (0.3-0.8); MONOCYTES % (AUTO) 11.4 % (0.0-13.0); NEUTROPHILS # (AUTO) 6.2 x10^3/uL (2.2-4.8); NEUTROPHILS % (AUTO) 75.1 % (42.0-75.0); PLATELET COUNT 270 X10^3/uL (150.0-450.0); RED BLOOD COUNT 4.79 X10^6/uL (4.7-6.0); RED CELL DISTRIBUTION WIDTH 14.1 % (11.6-16.5); WHITE BLOOD COUNT 8.2 X10^3/uL (3.6-10.0)
[2017-07-22] MEDS: COLACE CAP 100 MG PO SCH ×2 (06:21→21:22)
[2017-07-22] MEDS: FLOMAX PO SCH ×3 (06:22→21:22)
[2017-07-22] MEDS: MEGACE PO SCH ×3 (06:22→21:22)
[2017-07-22 06:35] LABS: ALANINE AMINOTRANSFERASE 32 Units/L (12-78); ALBUMIN 3.9 g/dL (3.4-5.0); ALKALINE PHOSPHATASE 39 Units/L (46-116); ASPARTATE AMINO TRANSFERASE 21 Units/L (15-37); BLOOD UREA NITROGEN 22 mg/dL (7-18); CALCIUM 9.1 mg/dL (8.5-10.1); CARBON DIOXIDE 24.4 mmol/L (21-32); CHLORIDE 97 mmol/L (98-107); CREATININE 0.84 mg/dL (0.70-1.30); SODIUM 131 mmol/L (136-145); TOTAL PROTEIN 6.8 g/dL (6.4-8.2); eGFR BLACK RACES > 60 (>60); eGFR NON BLACK RACES > 60 (>60)
[2017-07-22 07:03] LABS: CKMB % 2.3 % (<4); CREATINE KINASE 166 Units/L (39-308); CREATINE KINASE MB 3.8 ng/mL (0-4.0); TROPONIN I < 0.02 ng/mL (0-1.5)
[2017-07-22] MEDS: MILK OF MAGNESIA PO SCH ×2 (09:33→09:34)
[2017-07-22] MEDS: ASPIRIN EC 81 MG PO SCH (09:34)
[2017-07-22] MEDS: COZAAR PO SCH (09:34)
[2017-07-22] MEDS: ROCEPHIN VIAL 1 GM 1 GM in NS 100 ML IV + SPIKE MINIBAG* 100 ML IV SCH (09:34)
[2017-07-22] MEDS: NORVASC TAB 5 MG PO SCH (09:34)
[2017-07-22] MEDS: ALBUMIN HUMAN 25%- 100ML 100 ML IV SCH (09:35)
[2017-07-22] MEDS: MIRALAX POWDER (1 DOSE 17GM) PO SCH (10:16)
[2017-07-22] MEDS ORDERED: MILK OF MAGNESIA PO SCH (13:00)
[2017-07-22] MEDS ORDERED: MILK OF MAGNESIA PO PRN (14:00)
[2017-07-22] MEDS: PROCALAMINE 3 % 1,000 ML IV SCH (17:36)
[2017-07-23 06:29] LABS: BASOPHILS # (AUTO) 0.1 X10^3/uL (0.0-0.1); BASOPHILS % (AUTO) 0.8 % (0.2-1.0); EOSINOPHILS # (AUTO) 0.2 x10^3/uL (0.0-0.2); EOSINOPHILS % (AUTO) 3.4 % (0.9-2.9); HEMATOCRIT 40.1 % (42.0-54.0); HEMOGLOBIN 13.3 g/dL (13.5-18.0); LYMPHOCYTES # (AUTO) 0.4 X10^3/uL (1.3-2.9); LYMPHOCYTES % (AUTO) 6.3 % (21.0-51.0); MEAN CORPUSCULAR HEMOGLOBIN 28.4 pg (27.0-34.0); MEAN CORPUSCULAR HGB CONC 33.2 g/dL (33.0-35.0); MEAN CORPUSCULAR VOLUME 85.4 fL (80.0-100.0); MONOCYTES # (AUTO) 0.7 x10^3/uL (0.3-0.8); MONOCYTES % (AUTO) 10.5 % (0.0-13.0); NEUTROPHILS # (AUTO) 5.4 x10^3/uL (2.2-4.8); PLATELET COUNT 288 X10^3/uL (150.0-450.0); RED CELL DISTRIBUTION WIDTH 14.5 % (11.6-16.5); WHITE BLOOD COUNT 6.8 X10^3/uL (3.6-10.0)
[2017-07-23 07:21] LABS: ALANINE AMINOTRANSFERASE 31 Units/L (12-78); ALBUMIN 4.2 g/dL (3.4-5.0); ALKALINE PHOSPHATASE 36 Units/L (46-116); ASPARTATE AMINO TRANSFERASE 19 Units/L (15-37); BLOOD UREA NITROGEN 19 mg/dL (7-18); CALCIUM 9.4 mg/dL (8.5-10.1); CARBON DIOXIDE 28.4 mmol/L (21-32); CHLORIDE 99 mmol/L (98-107); CREATININE 0.83 mg/dL (0.70-1.30); SODIUM 133 mmol/L (136-145); TOTAL PROTEIN 7.3 g/dL (6.4-8.2); eGFR BLACK RACES > 60 (>60); eGFR NON BLACK RACES > 60 (>60)
[2017-07-23] MEDS: NORVASC TAB 5 MG PO SCH (09:02)
[2017-07-23] MEDS: COZAAR PO SCH (09:02)
[2017-07-23] MEDS: ASPIRIN EC 81 MG PO SCH (09:02)
[2017-07-23] MEDS: COLACE CAP 100 MG PO SCH ×2 (09:02→20:33)
[2017-07-23] MEDS: FLOMAX PO SCH ×2 (09:02→20:33)
[2017-07-23] MEDS: MIRALAX POWDER (1 DOSE 17GM) PO SCH (09:03)
[2017-07-23] MEDS: ROCEPHIN VIAL 1 GM 1 GM in NS 100 ML IV + SPIKE MINIBAG* 100 ML IV SCH (09:03)
[2017-07-23] MEDS: MEGACE PO SCH ×2 (09:10→20:33)
[2017-07-23] MEDS: ALBUMIN HUMAN 25%- 100ML 100 ML IV SCH (10:00)
[2017-07-23] MEDS ORDERED: SALINE 3% 15 ML NEB TX ONE (10:12)
[2017-07-23] MEDS ORDERED: SALINE 3% 15 ML NEB TX NEB ONE (10:13)
[2017-07-23] MEDS: PROVENTIL NEB TX 0.083% 2.5MG/ 3ML NEB PRN ×3 (10:13→16:54)
--- NOTE | 2017-07-23 14:00 | RAD ---
History: Weakness, shortness of breath, COPD Study: Chest AP portable Findings: AP portable examination of chest is performed and comparison made to the previous study . Heart and mediastinal structures are unchanged in appearance. There is overexpansion of the lungs as before. No acute process is seen. Impression: Probable COPD and no evidence of acute disease. Reported By:
[2017-07-23] MEDS: NS 1000 ML 1,000 ML IV SCH ×4 (14:48→22:20)
[2017-07-23] MEDS: PROCALAMINE 3 % 1,000 ML IV SCH ×2 (14:48→22:20)
--- NOTE | 2017-07-23 20:31 | PCM.PROG ---
Progress Note - Progress Note for Day of Date: 07/23/17 - Subjective Subjective: WAS ADMITTED FOR RHABDOMYOLYSIS AND WEAKNESS TO LOWER EXTREMITIES. RHABDOMYOLYSIS HAS RESOLVED. PLANS WERE FOR PATIENT TO BE TRANSFERRED TO [facility] YESTERDAY DUE TO INCREASED ALTERED MENTAL STATUS AND AGITATION. HOWEVER, AFTER ROUNDS YESTERDAY, PATIENTS FAMILY DECIDED AGAINST GOING TO [facility]. THEY REQUESTED TO OBSERVE PATIENT AFTER ALL OF THE ANTIPSYCHOTIC MEDICATIONS WERE OUT OF HIS SYSTEM. WE DISCONTINUES THE ZYPREXA YESTERDAY. TODAY, PATIENT IS ALERT AND ORIENTED, LYING IN BED ON MORNING ROUNDS. HE CONTINUES WITH GENERALIZED WEAKNESS, OTHERWISE, REPORTS FEELING WELL. ON EXAMINATION, HEART IS REGULAR IN RATE AND RHYTHM. BILATERAL LUNGS ARE NOTED TO BE CLEAR TO AUSCULTATION. ABDOMEN IS ROUND, SOFT, AND NON- TENDER. NORMAL BOWEL SOUNDS NOTED IN ALL QUADRANTS. A BAIG CATHETER IS NOTED TO BEDSIDE DRAINAGE. HIS VITALS THIS MORNING ARE 98.5-93-20-95%-157/82. LABS WERE OBTAINED THIS MORNING. SODIUM IS SLIGHTLY DECREASED AT 131. OTHERWISE, HE IS HEMODYNAMICALLY STABLE. A BRAIN CT WAS OBTAINED YESTERDAY AND WAS NEGATIVE FOR ACUTE INTRACRANIAL ABNORMALITY. PATIENT WAS COPPERATIVE WITH PHYSICAL THERAPY AFTER HE AWOKENED YESTERDAY. FAMILY REPORTS THAT PATIENT SEEMS TO BE GETTING STRANGLED AND CHOKING WHEN HE EATS. WE WILL HAVE SPEECH THERAPY EVAULUATE PATIENT TODAY. OTHERWISE, WE WILL CONTINUE WITH CURRENT PLAN OF CARE UNTIL THEN. WE PLAN TO FOLLOW UP WITH AM LABS AND CONTINUE TO MONITOR PATIENT. - Past Medical Family Social History Past Med/Fam/Surg Hx: No changes since H&P Allergies: Allergies olanzapine [From Zyprexa] Allergy (Verified 07/22/17 12:45) - Review of Systems ROS: No change since H&P - Vital Signs and I&O's Vital Signs: Temperature 97.9 F Pulse Rate [Left] 104 Pulse Rate 55 Respiratory Rate 22 Blood Pressure [Right Arm] 146/71 Blood Pressure [Left Arm] 173/92 Blood Pressure 143/89 O2 Sat by Pulse Oximetry 93 Intake and Output: Intake & Output 07/21/17 07/22/17 07/23/17 07/24/17 11:59 11:59 11:59 11:59 Intake Total 3502 760 1870 1560 Output Total 3300 1100 3500 Balance 202 -340 -1630 1560 - Physical Exam Oriented: Normal Eyes: Normal. negative: Blurred Vision, Diplopia, Discharge, Pain, Redness, Photophobia, Other Ear: Normal. negative: Right, Left, Swelling, Ecchymosis, Hemotypanum, Abrasion , Laceration Nose: Normal. negative: Injected, Discharge, Blood, Other Throat: Normal. negative: Tonsillar Hypertrophy, Red, Exudate, Dry, Other Respiratory: Normal Cardiovascular: negative: Normal, Tachycardia, Bradycardia, Irregular, S3, S4, Systolic, Diastolic, Murmur, Edema, Other : Normal Auscultation: Bowel Sounds: Normal. negative: Bruit, Absent, Increased, Decreased, High Pitched, Other Palpation: Normal Tenderness: Normal. negative: Rebound, Guarding, Rigidity Skin: Decreased Turgur Musculoskeletal: Right, Left, Leg, Instability Psychiatric: Normal Mood Description: Calm Affect: Normal Speech Pattern: Clear, Appropriate - Laboratory and Diagnostics Result Diagrams: 07/23/17 05:18 07/23/17 05:18 Labs: 07/23/17 10:28 Sputum - Expectorated Sputum - Final Laboratory WBC 6.8 X10^3/uL (3.6-10.0) 07/23/17 05:18 RBC 4.70 X10^6/uL (4.7-6.0) 07/23/17 05:18 Hgb 13.3 g/dL (13.5-18.0) L 07/23/17 05:18 Hct 40.1 % (42.0-54.0) L 07/23/17 05:18 MCV 85.4 fL (80.0-100.0) 07/23/17 05:18 MCH 28.4 pg (27.0-34.0) 07/23/17 05:18 MCHC 33.2 g/dL (33.0-35.0) 07/23/17 05:18 RDW 14.5 % (11.6-16.5) 07/23/17 05:18 Plt Count 288 X10^3/uL (150.0-450.0) 07/23/17 05:18 MPV 8.0 fL (7.4-11.0) 07/23/17 05:18 Neut % 79.0 % (42.0-75.0) H 07/23/17 05:18 Lymph % 6.3 % (21.0-51.0) L 07/23/17 05:18 [place] % 10.5 % (0.0-13.0) 07/23/17 05:18 Eos % 3.4 % (0.9-2.9) H 07/23/17 05:18 Baso % 0.8 % (0.2-1.0) 07/23/17 05:18 Neut # 5.4 x10^3/uL (2.2-4.8) H 07/23/17 05:18 Lymph # 0.4 X10^3/uL (1.3-2.9) L 07/23/17 05:18 [place] # 0.7 x10^3/uL (0.3-0.8) 07/23/17 05:18 Eos # 0.2 x10^3/uL (0.0-0.2) 07/23/17 05:18 Baso # 0.1 X10^3/uL (0.0-0.1) 07/23/17 05:18 Absolute Nucleated RBC 0.0 /100WBC 07/23/17 05:18 Sodium 133 mmol/L (136-145) L 07/23/17 05:18 Corrected Sodium TNP 07/23/17 05:18 Potassium 4.9 mmol/L (3.5-5.1) 07/23/17 05:18 Chloride 99 mmol/L (98-107) 07/23/17 05:18 Carbon Dioxide 28.4 mmol/L (21-32) 07/23/17 05:18 BUN 19 mg/dL (7-18) H 07/23/17 05:18 Creatinine 0.83 mg/dL (0.70-1.30) 07/23/17 05:18 Est GFR (MDRD) Af Amer > 60 (>60) 07/23/17 05:18 Est GFR (MDRD) Non-Af > 60 (>60) 07/23/17 05:18 Glucose 93 mg/dL (65-99) 07/23/17 05:18 Calcium 9.4 mg/dL (8.5-10.1) 07/23/17 05:18 Corrected Calcium TNP 07/23/17 05:18 Total Bilirubin 0.40 mg/dL (0.2-1.0) 07/23/17 05:18 AST 19 Units/L (15-37) 07/23/17 05:18 ALT 31 Units/L (12-78) 07/23/17 05:18 Alkaline Phosphatase 36 Units/L (46-116) L 07/23/17 05:18 Creatine Kinase 166 Units/L (39-308) 07/22/17 05:15 CK-MB (CK-2) 3.8 ng/mL (0-4.0) 07/22/17 05:15 CK/CKMB % Calc 2.3 % (<4) 07/22/17 05:15 Troponin I < 0.02 ng/mL (0-1.5) 07/22/17 05:15 Total Protein 7.3 g/dL (6.4-8.2) 07/23/17 05:18 Albumin 4.2 g/dL (3.4-5.0) 07/23/17 05:18 Globulin 3.1 g/dL (2.5-4.5) 07/23/17 05:18 Albumin/Globulin Ratio 1.4 Ratio (1.1-2.1) 07/23/17 05:18 Prealbumin 15.6 mg/dL (18-35.7) L 07/15/17 12:00 Specimen Type Catherized urine 07/21/17 03:23 Urine Color Yellow (YELLOW) 07/21/17 03:23 Urine Appearance Clear (CLEAR) 07/21/17 03:23 Urine pH 6.5 (5.0 - 8.0) 07/21/17 03:23 Ur Specific [place] 1.015 (1.000-1.030) 07/21/17 03:23 Urine Protein Negative (NEGATIVE) 07/21/17 03:23 Urine Glucose (UA) Negative (NEGATIVE) 07/21/17 03:23 Urine Ketones Negative (NEGATIVE) 07/21/17 03:23 Urine Occult Blood 3+ (NEGATIVE) 07/21/17 03:23 Urine Nitrite Negative (NEGATIVE) 07/21/17 03:23 Urine Bilirubin Negative (NEGATIVE) 07/21/17 03:23 Urine Urobilinogen Normal (NORMAL) 07/21/17 03:23 Ur Leukocyte Esterase 1+ (NEGATIVE) 07/21/17 03:23 Urine RBC 2-6 /HPF (NEGATIVE) 07/21/17 03:23 Urine WBC 0-3 /HPF (NEGATIVE) 07/21/17 03:23 Ur Squamous Epith Cells Rare /HPF (NEGATIVE) 07/21/17 03:23 Urine Bacteria Negative /HPF (NEGATIVE) 07/21/17 03:23 Ur Culture Indicated? No/not indicated 07/21/17 03:23 - Plan (1) Rhabdomyolysis Status: Resolved Qualifiers: Rhabdomyolysis type: traumatic Encounter type: initial encounter Qualified Code(s): T79.6XXA - Traumatic ischemia of muscle, initial encounter Plan: NORMAL SALINE AT 75ML/HR, PROCALAMINE AT 40ML/HR, PHYSICAL THERAPY DUE TO WEAKNESS, CONTINUE TO MONITOR (2) Fall Status: Acute Qualifiers: Encounter type: initial encounter Qualified Code(s): W19.XXXA - Unspecified fall, initial encounter Plan: PHYSICAL THERAPY CONSULT, CONTINUE TO MONITOR (3) Protein deficiency Status: Acute Plan: PROCALAMINE AT 40ML/HR, ALBUMIN 25% IV DAILY, CONTINUE TO MONITOR (4) Agitation Status: Acute Plan: CONTINUE TO MONITOR (5) Urinary retention Status: Acute Plan: FLOMAX 0.4MG PO BID, CONTINUE TO MONITOR
[2017-07-24] MEDS: NS 1000 ML 1,000 ML IV SCH ×2 (04:50→15:58)
[2017-07-24 05:44] LABS: BASOPHILS % (AUTO) 0.6 % (0.2-1.0); EOSINOPHILS # (AUTO) 0.1 x10^3/uL (0.0-0.2); EOSINOPHILS % (AUTO) 1.5 % (0.9-2.9); HEMATOCRIT 38.1 % (42.0-54.0); HEMOGLOBIN 12.7 g/dL (13.5-18.0); LYMPHOCYTES # (AUTO) 0.3 X10^3/uL (1.3-2.9); LYMPHOCYTES % (AUTO) 5.7 % (21.0-51.0); MEAN CORPUSCULAR HEMOGLOBIN 28.4 pg (27.0-34.0); MEAN CORPUSCULAR HGB CONC 33.4 g/dL (33.0-35.0); MEAN PLATELET VOLUME 7.7 fL (7.4-11.0); MONOCYTES # (AUTO) 0.6 x10^3/uL (0.3-0.8); MONOCYTES % (AUTO) 10.3 % (0.0-13.0); NEUTROPHILS % (AUTO) 81.9 % (42.0-75.0); PLATELET COUNT 268 X10^3/uL (150.0-450.0); RED BLOOD COUNT 4.48 X10^6/uL (4.7-6.0); RED CELL DISTRIBUTION WIDTH 14.3 % (11.6-16.5); WHITE BLOOD COUNT 6.1 X10^3/uL (3.6-10.0)
[2017-07-24 05:47] LABS: ALANINE AMINOTRANSFERASE 29 Units/L (12-78); ALBUMIN 4.2 g/dL (3.4-5.0); ALKALINE PHOSPHATASE 36 Units/L (46-116); ASPARTATE AMINO TRANSFERASE 20 Units/L (15-37); BLOOD UREA NITROGEN 17 mg/dL (7-18); CALCIUM 9.2 mg/dL (8.5-10.1); CHLORIDE 98 mmol/L (98-107); CREATININE 0.74 mg/dL (0.70-1.30); SODIUM 131 mmol/L (136-145); TOTAL PROTEIN 7.1 g/dL (6.4-8.2); eGFR BLACK RACES > 60 (>60); eGFR NON BLACK RACES > 60 (>60)
[2017-07-24] MEDS: ALBUMIN HUMAN 25%- 100ML 100 ML IV SCH (08:41)
[2017-07-24] MEDS: ROCEPHIN VIAL 1 GM 1 GM in NS 100 ML IV + SPIKE MINIBAG* 100 ML IV SCH (08:41)
[2017-07-24] MEDS: NORVASC TAB 5 MG PO SCH (08:41)
[2017-07-24] MEDS: COZAAR PO SCH (08:41)
[2017-07-24] MEDS: COLACE CAP 100 MG PO SCH ×2 (08:42→20:04)
[2017-07-24] MEDS: ASPIRIN EC 81 MG PO SCH (08:42)
[2017-07-24] MEDS: FLOMAX PO SCH ×2 (08:42→20:04)
[2017-07-24] MEDS: MEGACE PO SCH ×2 (08:42→20:04)
[2017-07-24] MEDS: MIRALAX POWDER (1 DOSE 17GM) PO SCH (08:42)
[2017-07-24] MEDS: PROVENTIL NEB TX 0.083% 2.5MG/ 3ML NEB PRN (08:58)
[2017-07-24] MEDS: DUONEB 0.5 MG/3 MG NEB SCH ×4 (10:15→20:29)
[2017-07-24] MEDS: MUCINEX DM PO SCH ×2 (10:51→20:04)
[2017-07-24] MEDS: PEPCID 20 MG IV PREMIX* 20 MG/50 ML BAG IV SCH ×2 (10:51→20:03)
[2017-07-24] MEDS: PROTONIX INJ 40 MG VIAL IVP SCH ×2 (10:51→20:05)
[2017-07-24] MEDS: PROCALAMINE 3 % 1,000 ML IV SCH ×2 (14:13→23:00)
[2017-07-24] MEDS ORDERED: SEROquel TAB 100 MG PO SCH (18:00)
[2017-07-24] MEDS: TYLENOL 325 MG TAB PO PRN (20:04)
[2017-07-24] MEDS: TUSSIONEX PENNKINETIC SUSP PO SCH (20:04)
[2017-07-25 05:20] LABS: BASOPHILS # (AUTO) 0.1 X10^3/uL (0.0-0.1); BASOPHILS % (AUTO) 0.9 % (0.2-1.0); EOSINOPHILS % (AUTO) 0.2 % (0.9-2.9); HEMOGLOBIN 13.4 g/dL (13.5-18.0); LYMPHOCYTES # (AUTO) 0.2 X10^3/uL (1.3-2.9); LYMPHOCYTES % (AUTO) 2.6 % (21.0-51.0); MEAN CORPUSCULAR HEMOGLOBIN 28.2 pg (27.0-34.0); MEAN CORPUSCULAR HGB CONC 32.8 g/dL (33.0-35.0); MEAN CORPUSCULAR VOLUME 86.1 fL (80.0-100.0); MEAN PLATELET VOLUME 8.5 fL (7.4-11.0); MONOCYTES # (AUTO) 0.3 x10^3/uL (0.3-0.8); NEUTROPHILS # (AUTO) 6.4 x10^3/uL (2.2-4.8); NEUTROPHILS % (AUTO) 92.3 % (42.0-75.0); PLATELET COUNT 212 X10^3/uL (150.0-450.0); RED BLOOD COUNT 4.76 X10^6/uL (4.7-6.0); RED CELL DISTRIBUTION WIDTH 14.3 % (11.6-16.5)
[2017-07-25 05:31] LABS: ALANINE AMINOTRANSFERASE 29 Units/L (12-78); ALBUMIN 4.1 g/dL (3.4-5.0); ALKALINE PHOSPHATASE 37 Units/L (46-116); ASPARTATE AMINO TRANSFERASE 23 Units/L (15-37); BLOOD UREA NITROGEN 18 mg/dL (7-18); CALCIUM 9.3 mg/dL (8.5-10.1); CARBON DIOXIDE 25.9 mmol/L (21-32); CHLORIDE 95 mmol/L (98-107); CREATININE 0.94 mg/dL (0.70-1.30); SODIUM 129 mmol/L (136-145); TOTAL PROTEIN 7.1 g/dL (6.4-8.2); eGFR BLACK RACES > 60 (>60); eGFR NON BLACK RACES > 60 (>60)
[2017-07-25] MEDS: NS 1000 ML 1,000 ML IV SCH ×2 (06:01→23:37)
[2017-07-25 06:15] LABS: WHITE BLOOD COUNT 7.4 X10^3/uL (3.6-10.0)
[2017-07-25 06:17] LABS: BAND NEUTROPHILS % 4 % (0-10); PLATELET MORPHOLOGY COMMENT NORMAL (NORMAL)
--- NOTE | 2017-07-25 07:28 | RAD ---
Examination: Portable AP chest History: Weakness and SOB Comparison 07/23/2017 Findings: Continued normal heart size with no evidence for developing consolidation, pleural fluid or pulmonary edema. Persistent interstitial density in the left base may represent chronic peribronchia l thickening. No pneumothorax is seen. Impression: No definite change since 07/23/2017. Reported By:
[2017-07-25] MEDS ORDERED: ZOFRAN INJ 4 MG VIAL IVP PRN (07:47)
[2017-07-25] MEDS ORDERED: XOPENEX 1.25 MG/3 ML NEBULE NEB ONE (08:27)
[2017-07-25] MEDS: XOPENEX 1.25 MG/3 ML NEBULE NEB SCH ×4 (08:42→20:59)
[2017-07-25] MEDS: MUCINEX DM PO SCH ×2 (09:49→21:16)
[2017-07-25] MEDS: COLACE CAP 100 MG PO SCH ×2 (09:50→21:16)
[2017-07-25] MEDS: ROCEPHIN VIAL 1 GM 1 GM in NS 100 ML IV + SPIKE MINIBAG* 100 ML IV SCH (09:50)
[2017-07-25] MEDS: ASPIRIN EC 81 MG PO SCH (09:50)
[2017-07-25] MEDS: MEGACE PO SCH ×2 (09:50→21:16)
[2017-07-25] MEDS: NORVASC TAB 5 MG PO SCH (09:50)
[2017-07-25] MEDS: FLOMAX PO SCH ×2 (09:50→21:16)
[2017-07-25] MEDS: COZAAR PO SCH (09:50)
[2017-07-25] MEDS: PROTONIX INJ 40 MG VIAL IVP SCH ×2 (09:51→21:21)
[2017-07-25] MEDS: PEPCID 20 MG IV PREMIX* 20 MG/50 ML BAG IV SCH ×2 (09:51→21:17)
[2017-07-25] MEDS: ALBUMIN HUMAN 25%- 100ML 100 ML IV SCH (09:51)
[2017-07-25] MEDS: MIRALAX POWDER (1 DOSE 17GM) PO SCH (09:51)
[2017-07-25] MEDS: TAMIFLU PO SCH ×2 (13:00→21:16)
[2017-07-25] MEDS: TYLENOL 325 MG TAB PO PRN (15:35)
[2017-07-25] MEDS ORDERED: MOTRIN TAB 400 MG PO PRN (18:23)
--- NOTE | 2017-07-25 18:33 | PCM.PROG ---
Progress Note - Progress Note for Day of Date: 07/23/17 - Subjective Subjective: WAS ADMITTED FOR RHABDOMYOLYSIS AND WEAKNESS TO LOWER EXTREMITIES. RHABDOMYOLYSIS HAS RESOLVED. TODAY, PATIENT IS ALERT AND ORIENTED, LYING IN BED ON MORNING ROUNDS. FAMILY REPORTS THAT HE HAS BEEN SOMEWHAT CONFUSED THROUGHOUT THE NIGHT AND THIS MORNING. HE CONTINUES WITH GENERALIZED WEAKNESS AND ALSO REPORTS A NON-PRODUCTIVE COUGH. ON EXAMINATION, HEART IS REGULAR IN RATE AND RHYTHM. BILATERAL LUNGS ARE NOTED WITH DIMINISHED LUNG SOUNDS. ABDOMEN IS ROUND, SOFT, AND NON-TENDER. NORMAL BOWEL SOUNDS NOTED IN ALL QUADRANTS. HIS VITALS THIS MORNING ARE 98.2-87-18-94%-146/86. HE HAS BEEN AFEBRILE. LABS WERE OBTAINED THIS MORNING. SODIUM HAS SLIGHTLY INCREASED TO 133. OTHERWISE, HE IS HEMODYNAMICALLY STABLE. A CHEST XRAY WAS OBTAINED THIS MORNING AND REPORTED PROBABLE COPD AND NO EVIDENCE OF ACUTE DISEASE. WE PLAN TO SOON TRANSITION PATIENT TO SWING[facility]ED STATUS FOR PHYSICAL THERAPY. WE WILL CONTINUE WITH CURRENT PLAN OF CARE TODAY. WE PLAN TO FOLLOW UP WITH AM LABS AND CONTINUE TO MONITOR PATIENT. - Past Medical Family Social History Past Med/Fam/Surg Hx: No changes since H&P Allergies: Allergies olanzapine [From Zyprexa] Allergy (Verified 07/22/17 12:45) - Review of Systems ROS: No change since H&P - Vital Signs and I&O's Vital Signs: Temperature 100.5 F Pulse Rate [Left] 104 Pulse Rate 94 Respiratory Rate 22 Blood Pressure [Right Arm] 168/83 Blood Pressure [Left Arm] 163/83 Blood Pressure 143/89 O2 Sat by Pulse Oximetry 90 Intake and Output: Intake & Output 07/23/17 07/24/17 07/25/17 07/26/17 11:59 11:59 11:59 11:59 Intake Total 1870 3860 1560 200 Output Total 3500 100 Balance -1630 3860 1460 200 - Physical Exam Oriented: Normal Eyes: Normal. negative: Blurred Vision, Diplopia, Discharge, Pain, Redness, Photophobia, Other Ear: Normal. negative: Right, Left, Swelling, Ecchymosis, Hemotypanum, Abrasion , Laceration Nose: Normal. negative: Injected, Discharge, Blood, Other Throat: Normal. negative: Tonsillar Hypertrophy, Red, Exudate, Dry, Other Respiratory: Normal Cardiovascular: negative: Normal, Tachycardia, Bradycardia, Irregular, S3, S4, Systolic, Diastolic, Murmur, Edema, Other : Normal Auscultation: Bowel Sounds: Normal. negative: Bruit, Absent, Increased, Decreased, High Pitched, Other Palpation: Normal Tenderness: Normal. negative: Rebound, Guarding, Rigidity Skin: Decreased Turgur Musculoskeletal: Right, Left, Leg, Instability Psychiatric: Normal Mood Description: Calm Affect: Normal Speech Pattern: Unclear - Laboratory and Diagnostics Result Diagrams: 07/25/17 04:40 07/25/17 04:40 Labs: 07/23/17 10:28 Sputum - Expectorated Sputum Sputum Culture - Final 07/23/17 10:28 Sputum - Expectorated Sputum - Final Laboratory WBC 7.4 X10^3/uL (3.6-10.0) 07/25/17 04:40 RBC 4.76 X10^6/uL (4.7-6.0) 07/25/17 04:40 Hgb 13.4 g/dL (13.5-18.0) L 07/25/17 04:40 Hct 41.0 % (42.0-54.0) L 07/25/17 04:40 MCV 86.1 fL (80.0-100.0) 07/25/17 04:40 MCH 28.2 pg (27.0-34.0) 07/25/17 04:40 MCHC 32.8 g/dL (33.0-35.0) L 07/25/17 04:40 RDW 14.3 % (11.6-16.5) 07/25/17 04:40 Plt Count 212 X10^3/uL (150.0-450.0) 07/25/17 04:40 Plt Count Comment Adequate (ADEQUATE) 07/25/17 04:40 MPV 8.5 fL (7.4-11.0) 07/25/17 04:40 Neut % 92.3 % (42.0-75.0) H 07/25/17 04:40 Lymph % 2.6 % (21.0-51.0) L 07/25/17 04:40 [place] % 4.0 % (0.0-13.0) 07/25/17 04:40 Eos % 0.2 % (0.9-2.9) L 07/25/17 04:40 Baso % 0.9 % (0.2-1.0) 07/25/17 04:40 Neut # 6.4 x10^3/uL (2.2-4.8) H 07/25/17 04:40 Lymph # 0.2 X10^3/uL (1.3-2.9) L 07/25/17 04:40 [place] # 0.3 x10^3/uL (0.3-0.8) 07/25/17 04:40 Eos # 0.0 x10^3/uL (0.0-0.2) 07/25/17 04:40 Baso # 0.1 X10^3/uL (0.0-0.1) 07/25/17 04:40 Absolute Nucleated RBC 0.0 /100WBC 07/25/17 04:40 Total Counted 100 07/25/17 04:40 Neutrophils % (Manual) 88 % (39-76) H 07/25/17 04:40 Band Neutrophils % 4 % (0-10) 07/25/17 04:40 Lymphocytes % (Manual) 2 % (13-43) L 07/25/17 04:40 Monocytes % (Manual) 5 % (4-9) 07/25/17 04:40 Plt Morphology Comment Normal (NORMAL) 07/25/17 04:40 RBC Morphology Normal (NORMAL) 07/25/17 04:40 Sodium 129 mmol/L (136-145) L 07/25/17 04:40 Corrected Sodium TNP 07/25/17 04:40 Potassium 4.6 mmol/L (3.5-5.1) 07/25/17 04:40 Chloride 95 mmol/L (98-107) L 07/25/17 04:40 Carbon Dioxide 25.9 mmol/L (21-32) 07/25/17 04:40 BUN 18 mg/dL (7-18) 07/25/17 04:40 Creatinine 0.94 mg/dL (0.70-1.30) 07/25/17 04:40 Est GFR (MDRD) Af Amer > 60 (>60) 07/25/17 04:40 Est GFR (MDRD) Non-Af > 60 (>60) 07/25/17 04:40 Glucose 88 mg/dL (65-99) 07/25/17 04:40 Calcium 9.3 mg/dL (8.5-10.1) 07/25/17 04:40 Corrected Calcium TNP 07/25/17 04:40 Total Bilirubin 0.30 mg/dL (0.2-1.0) 07/25/17 04:40 AST 23 Units/L (15-37) 07/25/17 04:40 ALT 29 Units/L (12-78) 07/25/17 04:40 Alkaline Phosphatase 37 Units/L (46-116) L 07/25/17 04:40 Creatine Kinase 166 Units/L (39-308) 07/22/17 05:15 CK-MB (CK-2) 3.8 ng/mL (0-4.0) 07/22/17 05:15 CK/CKMB % Calc 2.3 % (<4) 07/22/17 05:15 Troponin I < 0.02 ng/mL (0-1.5) 07/22/17 05:15 Total Protein 7.1 g/dL (6.4-8.2) 07/25/17 04:40 Albumin 4.1 g/dL (3.4-5.0) 07/25/17 04:40 Globulin 3.0 g/dL (2.5-4.5) 07/25/17 04:40 Albumin/Globulin Ratio 1.4 Ratio (1.1-2.1) 07/25/17 04:40 Prealbumin 15.6 mg/dL (18-35.7) L 07/15/17 12:00 Specimen Type Catherized urine 07/21/17 03:23 Urine Color Yellow (YELLOW) 07/21/17 03:23 Urine Appearance Clear (CLEAR) 07/21/17 03:23 Urine pH 6.5 (5.0 - 8.0) 07/21/17 03:23 Ur Specific [place] 1.015 (1.000-1.030) 07/21/17 03:23 Urine Protein Negative (NEGATIVE) 07/21/17 03:23 Urine Glucose (UA) Negative (NEGATIVE) 07/21/17 03:23 Urine Ketones Negative (NEGATIVE) 07/21/17 03:23 Urine Occult Blood 3+ (NEGATIVE) 07/21/17 03:23 Urine Nitrite Negative (NEGATIVE) 07/21/17 03:23 Urine Bilirubin Negative (NEGATIVE) 07/21/17 03:23 Urine Urobilinogen Normal (NORMAL) 07/21/17 03:23 Ur Leukocyte Esterase 1+ (NEGATIVE) 07/21/17 03:23 Urine RBC 2-6 /HPF (NEGATIVE) 07/21/17 03:23 Urine WBC 0-3 /HPF (NEGATIVE) 07/21/17 03:23 Ur Squamous Epith Cells Rare /HPF (NEGATIVE) 07/21/17 03:23 Urine Bacteria Negative /HPF (NEGATIVE) 07/21/17 03:23 Ur Culture Indicated? No/not indicated 07/21/17 03:23 Influenza Type A (PCR) Negative (NEGATIVE) 07/24/17 22:10 Influenza Type B (PCR) Negative (NEGATIVE) 07/24/17 22:10 - Plan (1) Rhabdomyolysis Status: Resolved Qualifiers: Rhabdomyolysis type: traumatic Encounter type: initial encounter Qualified Code(s): T79.6XXA - Traumatic ischemia of muscle, initial encounter Plan: NORMAL SALINE AT 75ML/HR, PROCALAMINE AT 40ML/HR, PHYSICAL THERAPY DUE TO WEAKNESS, CONTINUE TO MONITOR (2) Fall Status: Acute Qualifiers: Encounter type: initial encounter Qualified Code(s): W19.XXXA - Unspecified fall, initial encounter Plan: PHYSICAL THERAPY CONSULT, CONTINUE TO MONITOR (3) Protein deficiency Status: Acute Plan: PROCALAMINE AT 40ML/HR, ALBUMIN 25% IV DAILY, CONTINUE TO MONITOR (4) Agitation Status: Acute Plan: CONTINUE TO MONITOR (5) Urinary retention Status: Acute Plan: FLOMAX 0.4MG PO BID, CONTINUE TO MONITOR (6) Shortness of breath Status: Acute Plan: supplemental oxygen, respiratory treatments, continue to monitor
[2017-07-25] MEDS: SOLU-Medrol 40 MG VIAL IVP SCH (21:21)
[2017-07-25] MEDS: PROCALAMINE 3 % 1,000 ML IV SCH (23:37)
[2017-07-25] MEDS: TUSSIONEX PENNKINETIC SUSP PO SCH (23:38)
[2017-07-26] MEDS: NS 1000 ML 1,000 ML IV SCH ×3 (00:10→20:44)
[2017-07-26] MEDS: SOLU-Medrol 40 MG VIAL IVP SCH ×3 (05:11→21:00)
[2017-07-26 06:14] LABS: BASOPHILS % (AUTO) 0.3 % (0.2-1.0); HEMATOCRIT 36.2 % (42.0-54.0); HEMOGLOBIN 12.1 g/dL (13.5-18.0); LYMPHOCYTES # (AUTO) 0.1 X10^3/uL (1.3-2.9); LYMPHOCYTES % (AUTO) 2.4 % (21.0-51.0); MEAN CORPUSCULAR HEMOGLOBIN 28.3 pg (27.0-34.0); MEAN CORPUSCULAR HGB CONC 33.6 g/dL (33.0-35.0); MEAN CORPUSCULAR VOLUME 84.4 fL (80.0-100.0); MEAN PLATELET VOLUME 8.4 fL (7.4-11.0); MONOCYTES # (AUTO) 0.1 x10^3/uL (0.3-0.8); MONOCYTES % (AUTO) 2.6 % (0.0-13.0); NEUTROPHILS # (AUTO) 4.9 x10^3/uL (2.2-4.8); NEUTROPHILS % (AUTO) 94.7 % (42.0-75.0); PLATELET COUNT 182 X10^3/uL (150.0-450.0); RED BLOOD COUNT 4.29 X10^6/uL (4.7-6.0); RED CELL DISTRIBUTION WIDTH 14.6 % (11.6-16.5); WHITE BLOOD COUNT 5.2 X10^3/uL (3.6-10.0)
[2017-07-26 06:16] LABS: ALANINE AMINOTRANSFERASE 32 Units/L (12-78); ALBUMIN 3.6 g/dL (3.4-5.0); ALKALINE PHOSPHATASE 36 Units/L (46-116); ASPARTATE AMINO TRANSFERASE 31 Units/L (15-37); BLOOD UREA NITROGEN 22 mg/dL (7-18); CALCIUM 9.1 mg/dL (8.5-10.1); CARBON DIOXIDE 25.9 mmol/L (21-32); CHLORIDE 97 mmol/L (98-107); COR NA(FOR HYPERGLY) 131 mmol/L (136-145); CREATININE 0.99 mg/dL (0.70-1.30); SODIUM 130 mmol/L (136-145); TOTAL PROTEIN 6.3 g/dL (6.4-8.2); eGFR BLACK RACES > 60 (>60); eGFR NON BLACK RACES > 60 (>60)
[2017-07-26 08:05] LABS: BAND NEUTROPHILS % 8 % (0-10); PLATELET MORPHOLOGY COMMENT NORMAL (NORMAL)
[2017-07-26] MEDS: NORVASC TAB 5 MG PO SCH (10:02)
[2017-07-26] MEDS: ASPIRIN EC 81 MG PO SCH (10:02)
[2017-07-26] MEDS: TAMIFLU PO SCH ×2 (10:02→20:55)
[2017-07-26] MEDS: MEGACE PO SCH ×2 (10:03→20:45)
[2017-07-26] MEDS: MUCINEX DM PO SCH ×2 (10:03→20:44)
[2017-07-26] MEDS: COLACE CAP 100 MG PO SCH ×2 (10:10→20:46)
[2017-07-26] MEDS: COZAAR PO SCH (10:11)
[2017-07-26] MEDS: MIRALAX POWDER (1 DOSE 17GM) PO SCH (10:12)
[2017-07-26] MEDS: FLOMAX PO SCH ×2 (10:12→20:44)
[2017-07-26] MEDS: PEPCID 20 MG IV PREMIX* 20 MG/50 ML BAG IV SCH ×2 (10:13→20:43)
[2017-07-26] MEDS: ROCEPHIN VIAL 1 GM 1 GM in NS 100 ML IV + SPIKE MINIBAG* 100 ML IV SCH (10:14)
[2017-07-26] MEDS: ALBUMIN HUMAN 25%- 100ML 100 ML IV SCH (10:14)
[2017-07-26] MEDS: PROTONIX INJ 40 MG VIAL IVP SCH ×2 (10:14→20:46)
[2017-07-26] MEDS: XOPENEX 1.25 MG/3 ML NEBULE NEB SCH ×3 (10:19→16:24)
--- NOTE | 2017-07-26 12:28 | RAD ---
HISTORY: Weakness, shortness of breath Study: Chest AP portable Comparison: 07/25/2017 Findings: The heart is within normal limits in size. The elis are normal. The lungs are hyperinflated consisten t with COPD. Interstitial lung changes are present bilaterally, stable. No pleural effusions are iden tified. The bony thorax is unremarkable. IMPRESSION: COPD with interstitial lung disease unchanged since the prior examination Reported By:
[2017-07-26] MEDS: PROCALAMINE 3 % 1,000 ML IV SCH (13:50)
[2017-07-26] MEDS: TUSSIONEX PENNKINETIC SUSP PO SCH (20:46)
[2017-07-27] MEDS: XOPENEX 1.25 MG/3 ML NEBULE NEB SCH ×5 (00:21→21:00)
[2017-07-27] MEDS: SOLU-Medrol 40 MG VIAL IVP SCH ×3 (05:23→21:30)
[2017-07-27 05:33] LABS: BASOPHILS % (AUTO) 0.2 % (0.2-1.0); HEMATOCRIT 34.6 % (42.0-54.0); HEMOGLOBIN 11.4 g/dL (13.5-18.0); LYMPHOCYTES # (AUTO) 0.2 X10^3/uL (1.3-2.9); LYMPHOCYTES % (AUTO) 2.4 % (21.0-51.0); MEAN CORPUSCULAR VOLUME 84.8 fL (80.0-100.0); MEAN PLATELET VOLUME 8.9 fL (7.4-11.0); MONOCYTES # (AUTO) 0.4 x10^3/uL (0.3-0.8); MONOCYTES % (AUTO) 4.3 % (0.0-13.0); NEUTROPHILS # (AUTO) 8.3 x10^3/uL (2.2-4.8); NEUTROPHILS % (AUTO) 93.1 % (42.0-75.0); PLATELET COUNT 192 X10^3/uL (150.0-450.0); RED BLOOD COUNT 4.08 X10^6/uL (4.7-6.0); RED CELL DISTRIBUTION WIDTH 14.2 % (11.6-16.5)
[2017-07-27 05:42] LABS: ALANINE AMINOTRANSFERASE 39 Units/L (12-78); ALKALINE PHOSPHATASE 38 Units/L (46-116); ASPARTATE AMINO TRANSFERASE 32 Units/L (15-37); BLOOD UREA NITROGEN 25 mg/dL (7-18); CALCIUM 9.6 mg/dL (8.5-10.1); CARBON DIOXIDE 27.6 mmol/L (21-32); CHLORIDE 95 mmol/L (98-107); COR NA(FOR HYPERGLY) 131 mmol/L (136-145); CREATININE 0.96 mg/dL (0.70-1.30); SODIUM 130 mmol/L (136-145); TOTAL PROTEIN 6.8 g/dL (6.4-8.2); eGFR BLACK RACES > 60 (>60); eGFR NON BLACK RACES > 60 (>60)
[2017-07-27 06:14] LABS: BAND NEUTROPHILS % 9 % (0-10); PLATELET MORPHOLOGY COMMENT NORMAL (NORMAL)
[2017-07-27] MEDS: ROCEPHIN VIAL 1 GM 1 GM in NS 100 ML IV + SPIKE MINIBAG* 100 ML IV SCH (09:20)
[2017-07-27] MEDS: MUCINEX DM PO SCH ×2 (09:25→21:45)
[2017-07-27] MEDS: COLACE CAP 100 MG PO SCH ×2 (09:25→21:46)
[2017-07-27] MEDS: TAMIFLU PO SCH ×2 (09:25→21:30)
[2017-07-27] MEDS: MEGACE PO SCH ×2 (09:26→21:30)
[2017-07-27] MEDS: NORVASC TAB 5 MG PO SCH (09:26)
[2017-07-27] MEDS: COZAAR PO SCH (09:27)
[2017-07-27] MEDS: FLOMAX PO SCH ×2 (09:27→21:30)
[2017-07-27] MEDS: MIRALAX POWDER (1 DOSE 17GM) PO SCH (09:28)
[2017-07-27] MEDS: ASPIRIN EC 81 MG PO SCH (09:28)
[2017-07-27] MEDS: ALBUMIN HUMAN 25%- 100ML 100 ML IV SCH (11:03)
[2017-07-27] MEDS: PEPCID 20 MG IV PREMIX* 20 MG/50 ML BAG IV SCH ×2 (11:03→21:30)
[2017-07-27] MEDS: PROTONIX INJ 40 MG VIAL IVP SCH ×2 (11:04→21:30)
[2017-07-27] MEDS: NS 1000 ML 1,000 ML IV SCH ×2 (11:04→23:09)
[2017-07-27] MEDS: CIPRO IV 400 MG PREMIX* 400 MG/200 ML IV.SOLN. IV SCH ×2 (11:04→21:52)
[2017-07-27] MEDS ORDERED: ROBITUSSIN DM PO PRN (14:09)
[2017-07-27] MEDS: PROCALAMINE 3 % 1,000 ML IV SCH (14:21)
--- NOTE | 2017-07-27 20:49 | PCM.PROG ---
Progress Note - Progress Note for Day of Date: 07/24/17 - Subjective Subjective: WAS ADMITTED FOR RHABDOMYOLYSIS AND WEAKNESS TO LOWER EXTREMITIES. RHABDOMYOLYSIS HAS RESOLVED. TODAY, PATIENT IS ALERT AND ORIENTED, LYING IN BED ON MORNING ROUNDS. FAMILY REPORTS THAT HE CONTINUES WITH INTERMITTENT CONFUSION; MORE AT NIGHT. HE CONTINUES WITH GENERALIZED WEAKNESS AND ALSO REPORTS SHORTNESS OF BREATH AND A NON-PRODUCTIVE COUGH. ON EXAMINATION , HEART IS REGULAR IN RATE AND RHYTHM. BILATERAL LUNGS ARE NOTED WITH DIMINISHED LUNG SOUNDS. ABDOMEN IS ROUND, SOFT, AND NON-TENDER. NORMAL BOWEL SOUNDS NOTED IN ALL QUADRANTS. HIS VITALS THIS MORNING ARE 98.3-100-22-99%-182/ 92. HE WAS NOTED TO HAVE AN ELEVATED TEMPERATURE OF 100.0 AT MIDNIGHT. LABS WERE OBTAINED THIS MORNING. ABNORMAL LAB VALUES INCLUDE THE FOLLOWING: RBC 4.48 , HGB 12.7, HCT 38.1, SODIUM 131, ALK PHOS 36. TODAY, WE WILL START PEPCID AND PROTONIX IV, TUSSIONEX 5ML PO AT BEDTIME FOR COUGH, SEROQUEL 25MG PO AT BEDTIME , MUCINEX DM 1200/60MG PO BID, AND INCREASE RESPIRATORY TREATMENTS TO QID. WE WILL OBTAIN A FLU SWAB. OTHERWISE, WE PLAN TO FOLLOW UP WITH AM LABS AND CONTINUE TO MONITOR PATIENT. - Past Medical Family Social History Past Med/Fam/Surg Hx: No changes since H&P Allergies: Allergies olanzapine [From Zyprexa] Allergy (Verified 07/22/17 12:45) - Review of Systems ROS: No change since H&P - Vital Signs and I&O's Vital Signs: Temperature 98.5 F Pulse Rate [Left Brachial] 87 Pulse Rate [Right Brachial] 96 Pulse Rate [Left] 73 Pulse Rate 87 Respiratory Rate 18 Blood Pressure [Right Arm] 172/70 Blood Pressure [Left Arm] 127/76 Blood Pressure 143/89 O2 Sat by Pulse Oximetry 94 Intake and Output: Intake & Output 07/25/17 07/26/17 07/27/17 07/28/17 11:59 11:59 11:59 11:59 Intake Total 1560 1070 1855 1225 Output Total 100 400 Balance 1460 1070 1455 1225 - Physical Exam Oriented: Normal Eyes: Normal. negative: Blurred Vision, Diplopia, Discharge, Pain, Redness, Photophobia, Other Ear: Normal. negative: Right, Left, Swelling, Ecchymosis, Hemotypanum, Abrasion , Laceration Nose: Normal. negative: Injected, Discharge, Blood, Other Throat: Normal. negative: Tonsillar Hypertrophy, Red, Exudate, Dry, Other Respiratory: Right, Left, Generalized, Wheezes Cardiovascular: negative: Normal, Tachycardia, Bradycardia, Irregular, S3, S4, Systolic, Diastolic, Murmur, Edema, Other : Normal Auscultation: Bowel Sounds: Normal. negative: Bruit, Absent, Increased, Decreased, High Pitched, Other Palpation: Normal Tenderness: Normal. negative: Rebound, Guarding, Rigidity Skin: Decreased Turgur Musculoskeletal: Right, Left, Leg, Instability Psychiatric: Other (intermittent confusion ) Mood Description: Calm Affect: Normal Speech Pattern: Unclear - Laboratory and Diagnostics Result Diagrams: 07/27/17 04:30 07/27/17 04:30 Labs: 07/24/17 19:48 Blood Blood Culture - Final Enterococcus Faecalis 07/24/17 19:42 Blood Blood Culture - Final Enterococcus Faecalis 07/23/17 10:28 Sputum - Expectorated Sputum Sputum Culture - Final 07/23/17 10:28 Sputum - Expectorated Sputum - Final Laboratory WBC 9.0 X10^3/uL (3.6-10.0) 07/27/17 04:30 RBC 4.08 X10^6/uL (4.7-6.0) L 07/27/17 04:30 Hgb 11.4 g/dL (13.5-18.0) L 07/27/17 04:30 Hct 34.6 % (42.0-54.0) L 07/27/17 04:30 MCV 84.8 fL (80.0-100.0) 07/27/17 04:30 MCH 28.0 pg (27.0-34.0) 07/27/17 04:30 MCHC 33.0 g/dL (33.0-35.0) 07/27/17 04:30 RDW 14.2 % (11.6-16.5) 07/27/17 04:30 Plt Count 192 X10^3/uL (150.0-450.0) 07/27/17 04:30 Plt Count Comment Adequate (ADEQUATE) 07/27/17 04:30 MPV 8.9 fL (7.4-11.0) 07/27/17 04:30 Neut % 93.1 % (42.0-75.0) H 07/27/17 04:30 Lymph % 2.4 % (21.0-51.0) L 07/27/17 04:30 [place] % 4.3 % (0.0-13.0) 07/27/17 04:30 Eos % 0.0 % (0.9-2.9) L 07/27/17 04:30 Baso % 0.2 % (0.2-1.0) 07/27/17 04:30 Neut # 8.3 x10^3/uL (2.2-4.8) H 07/27/17 04:30 Lymph # 0.2 X10^3/uL (1.3-2.9) L 07/27/17 04:30 [place] # 0.4 x10^3/uL (0.3-0.8) 07/27/17 04:30 Eos # 0.0 x10^3/uL (0.0-0.2) 07/27/17 04:30 Baso # 0.0 X10^3/uL (0.0-0.1) 07/27/17 04:30 Absolute Nucleated RBC 0.1 /100WBC 07/27/17 04:30 Total Counted 100 07/27/17 04:30 Neutrophils % (Manual) 86 % (39-76) H 07/27/17 04:30 Band Neutrophils % 9 % (0-10) 07/27/17 04:30 Lymphocytes % (Manual) 2 % (13-43) L 07/27/17 04:30 Monocytes % (Manual) 3 % (4-9) L 07/27/17 04:30 Plt Morphology Comment Normal (NORMAL) 07/27/17 04:30 RBC Morphology Normal (NORMAL) 07/27/17 04:30 Sodium 130 mmol/L (136-145) L 07/27/17 04:30 Corrected Sodium 131 mmol/L (136-145) L 07/27/17 04:30 Potassium 4.6 mmol/L (3.5-5.1) 07/27/17 04:30 Chloride 95 mmol/L (98-107) L 07/27/17 04:30 Carbon Dioxide 27.6 mmol/L (21-32) 07/27/17 04:30 BUN 25 mg/dL (7-18) H 07/27/17 04:30 Creatinine 0.96 mg/dL (0.70-1.30) 07/27/17 04:30 Est GFR (MDRD) Af Amer > 60 (>60) 07/27/17 04:30 Est GFR (MDRD) Non-Af > 60 (>60) 07/27/17 04:30 Glucose 122 mg/dL (65-99) H 07/27/17 04:30 Calcium 9.6 mg/dL (8.5-10.1) 07/27/17 04:30 Corrected Calcium TNP 07/27/17 04:30 Total Bilirubin 0.20 mg/dL (0.2-1.0) 07/27/17 04:30 AST 32 Units/L (15-37) 07/27/17 04:30 ALT 39 Units/L (12-78) 07/27/17 04:30 Alkaline Phosphatase 38 Units/L (46-116) L 07/27/17 04:30 Creatine Kinase 166 Units/L (39-308) 07/22/17 05:15 CK-MB (CK-2) 3.8 ng/mL (0-4.0) 07/22/17 05:15 CK/CKMB % Calc 2.3 % (<4) 07/22/17 05:15 Troponin I < 0.02 ng/mL (0-1.5) 07/22/17 05:15 Total Protein 6.8 g/dL (6.4-8.2) 07/27/17 04:30 Albumin 4.0 g/dL (3.4-5.0) 07/27/17 04:30 Globulin 2.8 g/dL (2.5-4.5) 07/27/17 04:30 Albumin/Globulin Ratio 1.4 Ratio (1.1-2.1) 07/27/17 04:30 Prealbumin 15.6 mg/dL (18-35.7) L 07/15/17 12:00 Specimen Type Catherized urine 07/21/17 03:23 Urine Color Yellow (YELLOW) 07/21/17 03:23 Urine Appearance Clear (CLEAR) 07/21/17 03:23 Urine pH 6.5 (5.0 - 8.0) 07/21/17 03:23 Ur Specific [place] 1.015 (1.000-1.030) 07/21/17 03:23 Urine Protein Negative (NEGATIVE) 07/21/17 03:23 Urine Glucose (UA) Negative (NEGATIVE) 07/21/17 03:23 Urine Ketones Negative (NEGATIVE) 07/21/17 03:23 Urine Occult Blood 3+ (NEGATIVE) 07/21/17 03:23 Urine Nitrite Negative (NEGATIVE) 07/21/17 03:23 Urine Bilirubin Negative (NEGATIVE) 07/21/17 03:23 Urine Urobilinogen Normal (NORMAL) 07/21/17 03:23 Ur Leukocyte Esterase 1+ (NEGATIVE) 07/21/17 03:23 Urine RBC 2-6 /HPF (NEGATIVE) 07/21/17 03:23 Urine WBC 0-3 /HPF (NEGATIVE) 07/21/17 03:23 Ur Squamous Epith Cells Rare /HPF (NEGATIVE) 07/21/17 03:23 Urine Bacteria Negative /HPF (NEGATIVE) 07/21/17 03:23 Ur Culture Indicated? No/not indicated 07/21/17 03:23 Influenza Type A (PCR) Negative (NEGATIVE) 07/24/17 22:10 Influenza Type B (PCR) Negative (NEGATIVE) 07/24/17 22:10 - Plan (1) Rhabdomyolysis Status: Resolved Qualifiers: Rhabdomyolysis type: traumatic Encounter type: initial encounter Qualified Code(s): T79.6XXA - Traumatic ischemia of muscle, initial encounter Plan: NORMAL SALINE AT 75ML/HR, PROCALAMINE AT 40ML/HR, PHYSICAL THERAPY DUE TO WEAKNESS, CONTINUE TO MONITOR (2) Fall Status: Acute Qualifiers: Encounter type: initial encounter Qualified Code(s): W19.XXXA - Unspecified fall, initial encounter Plan: PHYSICAL THERAPY CONSULT, CONTINUE TO MONITOR (3) Protein deficiency Status: Acute Plan: PROCALAMINE AT 40ML/HR, ALBUMIN 25% IV DAILY, CONTINUE TO MONITOR (4) Agitation Status: Acute Plan: CONTINUE TO MONITOR (5) Urinary retention Status: Acute Plan: FLOMAX 0.4MG PO BID, CONTINUE TO MONITOR (6) Shortness of breath Status: Acute Plan: supplemental oxygen, respiratory treatments, continue to monitor
--- NOTE | 2017-07-27 21:55 | PCM.PROG ---
Progress Note - Progress Note for Day of Date: 07/25/17 - Subjective Subjective: WAS ADMITTED FOR RHABDOMYOLYSIS AND WEAKNESS TO LOWER EXTREMITIES. RHABDOMYOLYSIS HAS RESOLVED. TODAY, PATIENT IS ALERT AND ORIENTED, LYING IN BED ON MORNING ROUNDS. HE CONTINUES WITH INTERMITTENT CONFUSION, [place] AT NIGHT AND IN THE EVENINGS, SHORTNESS OF BREATH, NASAL CONGESTION, NON-PRODUCTIVE COUGH, AND GENERALIZED WEAKNESS AND BODY ACHES. ON EXAMINATION, HEART IS REGULAR IN RATE AND RHYTHM. BILATERAL LUNGS ARE NOTED WITH WHEEZING THROUGHOUT. ABDOMEN IS ROUND, SOFT, AND NON-TENDER. NORMAL BOWEL SOUNDS NOTED IN ALL QUADRANTS. HIS VITALS THIS MORNING ARE 99.6-97-22-100%-179/ 96. HE WAS NOTED TO HAVE AN ELEVATED TEMPERATURE OF 100.6 YESTERDAY AT 11PM. LABS WERE OBTAINED THIS MORNING. ABNORMAL LAB VALUES INCLUDE THE FOLLOWING: HGB 13.4, HCT 41.0, SODIUM 129, CHLORIDE 95, ALK PHOS 37. FLU SWAB WAS NEGATIVE, ALTHOUGH SYMPTOMS ARE PRESENT. WE OBTAINED A CHEST XRAY TODAY. IT REPORTED PERSISTENT INTERSTITIAL DENSITY IN THE LEFT BASE MAY REPRESNET CHRONIC PERIBRONCHIAL THICKENING. TODAY, WE WILL START PATIENT ON TAMIFLU 75MG PO BID AND CHANGE BREATHING TREATMENTS TO XOPENEX. OTHERWISE, WE PLAN TO FOLLOW UP WITH AM LABS AND CONTINUE TO MONITOR PATIENT. - Past Medical Family Social History Past Med/Fam/Surg Hx: No changes since H&P Allergies: Allergies olanzapine [From Zyprexa] Allergy (Verified 07/22/17 12:45) - Review of Systems ROS: No change since H&P - Vital Signs and I&O's Vital Signs: Temperature 98.5 F Pulse Rate [Left Brachial] 87 Pulse Rate [Right Brachial] 96 Pulse Rate [Left] 73 Pulse Rate 84 Respiratory Rate 18 Blood Pressure [Right Arm] 172/70 Blood Pressure [Left Arm] 127/76 Blood Pressure 143/89 O2 Sat by Pulse Oximetry 94 Intake and Output: Intake & Output 07/25/17 07/26/17 07/27/17 07/28/17 11:59 11:59 11:59 11:59 Intake Total 1560 1070 1855 1225 Output Total 100 400 Balance 1460 1070 1455 1225 - Physical Exam Oriented: Normal Eyes: Normal. negative: Blurred Vision, Diplopia, Discharge, Pain, Redness, Photophobia, Other Ear: Normal. negative: Right, Left, Swelling, Ecchymosis, Hemotypanum, Abrasion , Laceration Nose: Normal. negative: Injected, Discharge, Blood, Other Throat: Normal. negative: Tonsillar Hypertrophy, Red, Exudate, Dry, Other Respiratory: Right, Left, Generalized, Wheezes Cardiovascular: negative: Normal, Tachycardia, Bradycardia, Irregular, S3, S4, Systolic, Diastolic, Murmur, Edema, Other : Normal Auscultation: Bowel Sounds: Normal. negative: Bruit, Absent, Increased, Decreased, High Pitched, Other Palpation: Normal Tenderness: Normal. negative: Rebound, Guarding, Rigidity Skin: Decreased Turgur Musculoskeletal: Right, Left, Leg, Instability Psychiatric: Other (intermittent confusion ) Mood Description: Calm Affect: Normal Speech Pattern: Unclear - Laboratory and Diagnostics Result Diagrams: 07/27/17 04:30 07/27/17 04:30 Labs: 07/24/17 19:48 Blood Blood Culture - Final Enterococcus Faecalis 07/24/17 19:42 Blood Blood Culture - Final Enterococcus Faecalis 07/23/17 10:28 Sputum - Expectorated Sputum Sputum Culture - Final 07/23/17 10:28 Sputum - Expectorated Sputum - Final Laboratory WBC 9.0 X10^3/uL (3.6-10.0) 07/27/17 04:30 RBC 4.08 X10^6/uL (4.7-6.0) L 07/27/17 04:30 Hgb 11.4 g/dL (13.5-18.0) L 07/27/17 04:30 Hct 34.6 % (42.0-54.0) L 07/27/17 04:30 MCV 84.8 fL (80.0-100.0) 07/27/17 04:30 MCH 28.0 pg (27.0-34.0) 07/27/17 04:30 MCHC 33.0 g/dL (33.0-35.0) 07/27/17 04:30 RDW 14.2 % (11.6-16.5) 07/27/17 04:30 Plt Count 192 X10^3/uL (150.0-450.0) 07/27/17 04:30 Plt Count Comment Adequate (ADEQUATE) 07/27/17 04:30 MPV 8.9 fL (7.4-11.0) 07/27/17 04:30 Neut % 93.1 % (42.0-75.0) H 07/27/17 04:30 Lymph % 2.4 % (21.0-51.0) L 07/27/17 04:30 [place] % 4.3 % (0.0-13.0) 07/27/17 04:30 Eos % 0.0 % (0.9-2.9) L 07/27/17 04:30 Baso % 0.2 % (0.2-1.0) 07/27/17 04:30 Neut # 8.3 x10^3/uL (2.2-4.8) H 07/27/17 04:30 Lymph # 0.2 X10^3/uL (1.3-2.9) L 07/27/17 04:30 [place] # 0.4 x10^3/uL (0.3-0.8) 07/27/17 04:30 Eos # 0.0 x10^3/uL (0.0-0.2) 07/27/17 04:30 Baso # 0.0 X10^3/uL (0.0-0.1) 07/27/17 04:30 Absolute Nucleated RBC 0.1 /100WBC 07/27/17 04:30 Total Counted 100 07/27/17 04:30 Neutrophils % (Manual) 86 % (39-76) H 07/27/17 04:30 Band Neutrophils % 9 % (0-10) 07/27/17 04:30 Lymphocytes % (Manual) 2 % (13-43) L 07/27/17 04:30 Monocytes % (Manual) 3 % (4-9) L 07/27/17 04:30 Plt Morphology Comment Normal (NORMAL) 07/27/17 04:30 RBC Morphology Normal (NORMAL) 07/27/17 04:30 Sodium 130 mmol/L (136-145) L 07/27/17 04:30 Corrected Sodium 131 mmol/L (136-145) L 07/27/17 04:30 Potassium 4.6 mmol/L (3.5-5.1) 07/27/17 04:30 Chloride 95 mmol/L (98-107) L 07/27/17 04:30 Carbon Dioxide 27.6 mmol/L (21-32) 07/27/17 04:30 BUN 25 mg/dL (7-18) H 07/27/17 04:30 Creatinine 0.96 mg/dL (0.70-1.30) 07/27/17 04:30 Est GFR (MDRD) Af Amer > 60 (>60) 07/27/17 04:30 Est GFR (MDRD) Non-Af > 60 (>60) 07/27/17 04:30 Glucose 122 mg/dL (65-99) H 07/27/17 04:30 Calcium 9.6 mg/dL (8.5-10.1) 07/27/17 04:30 Corrected Calcium TNP 07/27/17 04:30 Total Bilirubin 0.20 mg/dL (0.2-1.0) 07/27/17 04:30 AST 32 Units/L (15-37) 07/27/17 04:30 ALT 39 Units/L (12-78) 07/27/17 04:30 Alkaline Phosphatase 38 Units/L (46-116) L 07/27/17 04:30 Creatine Kinase 166 Units/L (39-308) 07/22/17 05:15 CK-MB (CK-2) 3.8 ng/mL (0-4.0) 07/22/17 05:15 CK/CKMB % Calc 2.3 % (<4) 07/22/17 05:15 Troponin I < 0.02 ng/mL (0-1.5) 07/22/17 05:15 Total Protein 6.8 g/dL (6.4-8.2) 07/27/17 04:30 Albumin 4.0 g/dL (3.4-5.0) 07/27/17 04:30 Globulin 2.8 g/dL (2.5-4.5) 07/27/17 04:30 Albumin/Globulin Ratio 1.4 Ratio (1.1-2.1) 07/27/17 04:30 Prealbumin 15.6 mg/dL (18-35.7) L 07/15/17 12:00 Specimen Type Catherized urine 07/21/17 03:23 Urine Color Yellow (YELLOW) 07/21/17 03:23 Urine Appearance Clear (CLEAR) 07/21/17 03:23 Urine pH 6.5 (5.0 - 8.0) 07/21/17 03:23 Ur Specific [place] 1.015 (1.000-1.030) 07/21/17 03:23 Urine Protein Negative (NEGATIVE) 07/21/17 03:23 Urine Glucose (UA) Negative (NEGATIVE) 07/21/17 03:23 Urine Ketones Negative (NEGATIVE) 07/21/17 03:23 Urine Occult Blood 3+ (NEGATIVE) 07/21/17 03:23 Urine Nitrite Negative (NEGATIVE) 07/21/17 03:23 Urine Bilirubin Negative (NEGATIVE) 07/21/17 03:23 Urine Urobilinogen Normal (NORMAL) 07/21/17 03:23 Ur Leukocyte Esterase 1+ (NEGATIVE) 07/21/17 03:23 Urine RBC 2-6 /HPF (NEGATIVE) 07/21/17 03:23 Urine WBC 0-3 /HPF (NEGATIVE) 07/21/17 03:23 Ur Squamous Epith Cells Rare /HPF (NEGATIVE) 07/21/17 03:23 Urine Bacteria Negative /HPF (NEGATIVE) 07/21/17 03:23 Ur Culture Indicated? No/not indicated 07/21/17 03:23 Influenza Type A (PCR) Negative (NEGATIVE) 07/24/17 22:10 Influenza Type B (PCR) Negative (NEGATIVE) 07/24/17 22:10 - Plan (1) Rhabdomyolysis Status: Resolved Qualifiers: Rhabdomyolysis type: traumatic Encounter type: initial encounter Qualified Code(s): T79.6XXA - Traumatic ischemia of muscle, initial encounter Plan: CONTINUE TO MONITOR (2) Fall Status: Acute Qualifiers: Encounter type: initial encounter Qualified Code(s): W19.XXXA - Unspecified fall, initial encounter Plan: PHYSICAL THERAPY CONSULT, CONTINUE TO MONITOR (3) Protein deficiency Status: Acute Plan: PROCALAMINE AT 40ML/HR, ALBUMIN 25% IV DAILY, CONTINUE TO MONITOR (4) Agitation Status: Acute Plan: CONTINUE TO MONITOR (5) Urinary retention Status: Acute Plan: FLOMAX 0.4MG PO BID, CONTINUE TO MONITOR (6) Shortness of breath Status: Acute Plan: supplemental oxygen, respiratory treatments, continue to monitor (7) Influenza Status: Acute Plan: TAMIFLU 75MG PO BID, CONTINUE TO MONITOR
[2017-07-28] MEDS: SOLU-Medrol 40 MG VIAL IVP SCH ×3 (06:09→21:11)
[2017-07-28 06:13] LABS: BASOPHILS % (AUTO) 0.2 % (0.2-1.0); HEMATOCRIT 32.9 % (42.0-54.0); LYMPHOCYTES # (AUTO) 0.4 X10^3/uL (1.3-2.9); LYMPHOCYTES % (AUTO) 4.7 % (21.0-51.0); MEAN CORPUSCULAR HEMOGLOBIN 28.2 pg (27.0-34.0); MEAN CORPUSCULAR HGB CONC 33.5 g/dL (33.0-35.0); MEAN CORPUSCULAR VOLUME 84.1 fL (80.0-100.0); MEAN PLATELET VOLUME 9.1 fL (7.4-11.0); MONOCYTES # (AUTO) 0.5 x10^3/uL (0.3-0.8); MONOCYTES % (AUTO) 4.9 % (0.0-13.0); NEUTROPHILS # (AUTO) 8.6 x10^3/uL (2.2-4.8); NEUTROPHILS % (AUTO) 90.2 % (42.0-75.0); PLATELET COUNT 190 X10^3/uL (150.0-450.0); RED BLOOD COUNT 3.91 X10^6/uL (4.7-6.0); RED CELL DISTRIBUTION WIDTH 14.3 % (11.6-16.5); WHITE BLOOD COUNT 9.5 X10^3/uL (3.6-10.0)
[2017-07-28 07:02] LABS: BAND NEUTROPHILS % 2 % (0-10); PLATELET MORPHOLOGY COMMENT NORMAL (NORMAL)
[2017-07-28 07:09] LABS: ALANINE AMINOTRANSFERASE 43 Units/L (12-78); ALBUMIN 3.6 g/dL (3.4-5.0); ALKALINE PHOSPHATASE 31 Units/L (46-116); ASPARTATE AMINO TRANSFERASE 30 Units/L (15-37); BLOOD UREA NITROGEN 26 mg/dL (7-18); CALCIUM 9.5 mg/dL (8.5-10.1); CARBON DIOXIDE 26.9 mmol/L (21-32); CHLORIDE 95 mmol/L (98-107); COR NA(FOR HYPERGLY) 129 mmol/L (136-145); CREATININE 0.94 mg/dL (0.70-1.30); SODIUM 128 mmol/L (136-145); TOTAL PROTEIN 6.2 g/dL (6.4-8.2); eGFR BLACK RACES > 60 (>60); eGFR NON BLACK RACES > 60 (>60)
[2017-07-28] MEDS: TAMIFLU PO SCH ×2 (08:24→20:57)
[2017-07-28] MEDS: NORVASC TAB 5 MG PO SCH (08:24)
[2017-07-28] MEDS: ASPIRIN EC 81 MG PO SCH (08:24)
[2017-07-28] MEDS: PROTONIX INJ 40 MG VIAL IVP SCH ×2 (08:24→20:56)
[2017-07-28] MEDS: MUCINEX DM PO SCH ×2 (08:24→20:56)
[2017-07-28] MEDS: PEPCID 20 MG IV PREMIX* 20 MG/50 ML BAG IV SCH ×2 (08:24→20:57)
[2017-07-28] MEDS: MEGACE PO SCH ×2 (08:24→20:57)
[2017-07-28] MEDS: FLOMAX PO SCH ×2 (08:24→20:57)
[2017-07-28] MEDS: COLACE CAP 100 MG PO SCH ×2 (08:24→20:57)
[2017-07-28] MEDS: COZAAR PO SCH (08:24)
[2017-07-28] MEDS: MIRALAX POWDER (1 DOSE 17GM) PO SCH (08:25)
[2017-07-28] MEDS: XOPENEX 1.25 MG/3 ML NEBULE NEB SCH ×4 (09:00→20:34)
[2017-07-28] MEDS: CIPRO IV 400 MG PREMIX* 400 MG/200 ML IV.SOLN. IV SCH ×2 (09:13→20:57)
[2017-07-28] MEDS: ALBUMIN HUMAN 25%- 100ML 100 ML IV SCH (10:52)
--- NOTE | 2017-07-28 13:12 | PCM.PROG ---
Progress Note - Progress Note for Day of Date: 07/26/17 - Subjective Subjective: WAS ADMITTED FOR RHABDOMYOLYSIS AND WEAKNESS TO LOWER EXTREMITIES. RHABDOMYOLYSIS HAS RESOLVED. TODAY, PATIENT IS ALERT AND ORIENTED, LYING IN BED ON MORNING ROUNDS. HE CONTINUES WITH INTERMITTENT CONFUSION, SHORTNESS OF BREATH, NON-PRODUCTIVE COUGH, AND GENERALIZED WEAKNESS. STAFF REPORTS THAT PATIENT WAS INCONTINENT THROUGHOUT THE NIGHT. THEY ALSO REPORT THAT HE WAS COMBATIVE WITH STAFF. ON EXAMINATION, HEART IS REGULAR IN RATE AND RHYTHM. BILATERAL LUNGS ARE NOTED WITH WHEEZING THROUGHOUT. ABDOMEN IS ROUND, SOFT, AND NON-TENDER. NORMAL BOWEL SOUNDS NOTED IN ALL QUADRANTS. HIS VITALS THIS MORNING ARE 97.3-92-18-99%-126/83. HE WAS AFEBRILE THROUGHOUT THE NIGHT. LABS WERE OBTAINED THIS MORNING. ABNORMAL LAB VALUES INCLUDE THE FOLLOWING: RBC 4.29, HGB 12.1, HCT 36.2, SODIUM 130, CHLORIDE 97, BUN 22, GLUCOSE 132, ALK PHOS 36, TOTAL PROTEIN 6.3. SPUTUM CULTURES AND BLOOD CULTURES ARE PENDING. WE OBTAINED A CHEST XRAY TODAY. 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 TODAY, WE WILL CONTINUE WITH CURRENT PLAN OF CARE. WE WILL CONTIUE THE CURRENT DOSE OF SEROQUEL FOR THE DEMENTIA AND AGITATION. OTHERWISE, WE PLAN TO FOLLOW UP WITH AM LABS AND CONTINUE TO MONITOR PATIENT. - Past Medical Family Social History Past Med/Fam/Surg Hx: No changes since H&P Allergies: Allergies olanzapine [From Zyprexa] Allergy (Verified 07/22/17 12:45) - Review of Systems ROS: No change since H&P - Vital Signs and I&O's Vital Signs: Temperature 98.1 F Pulse Rate [Left Brachial] 64 Pulse Rate [Right Brachial] 96 Pulse Rate [Left] 73 Pulse Rate 63 Respiratory Rate 20 Blood Pressure [Right Arm] 158/84 Blood Pressure [Left Arm] 140/77 Blood Pressure 143/89 O2 Sat by Pulse Oximetry 63 Intake and Output: Intake & Output 07/26/17 07/27/17 07/28/17 07/29/17 11:59 11:59 11:59 11:59 Intake Total 1070 1855 2530 Output Total 400 Balance 1070 1455 2530 - Physical Exam Oriented: Normal Eyes: Normal. negative: Blurred Vision, Diplopia, Discharge, Pain, Redness, Photophobia, Other Ear: Normal. negative: Right, Left, Swelling, Ecchymosis, Hemotypanum, Abrasion , Laceration Nose: Normal. negative: Injected, Discharge, Blood, Other Throat: Normal. negative: Tonsillar Hypertrophy, Red, Exudate, Dry, Other Respiratory: Right, Left, Generalized, Wheezes Cardiovascular: negative: Normal, Tachycardia, Bradycardia, Irregular, S3, S4, Systolic, Diastolic, Murmur, Edema, Other : Normal Auscultation: Bowel Sounds: Normal. negative: Bruit, Absent, Increased, Decreased, High Pitched, Other Palpation: Normal Tenderness: Normal. negative: Rebound, Guarding, Rigidity Skin: Decreased Turgur Musculoskeletal: Normal, Instability (GENERALIZED WEAKNESS AND INSTABILITY) Psychiatric: Other (intermittent confusion ) Mood Description: Calm Affect: Normal Speech Pattern: Unclear - Laboratory and Diagnostics Result Diagrams: 07/28/17 04:45 07/28/17 04:45 Labs: 07/24/17 19:48 Blood Blood Culture - Final Enterococcus Faecalis 07/24/17 19:42 Blood Blood Culture - Final Enterococcus Faecalis 07/23/17 10:28 Sputum - Expectorated Sputum Sputum Culture - Final 07/23/17 10:28 Sputum - Expectorated Sputum - Final Laboratory WBC 9.5 X10^3/uL (3.6-10.0) 07/28/17 04:45 RBC 3.91 X10^6/uL (4.7-6.0) L 07/28/17 04:45 Hgb 11.0 g/dL (13.5-18.0) L 07/28/17 04:45 Hct 32.9 % (42.0-54.0) L 07/28/17 04:45 MCV 84.1 fL (80.0-100.0) 07/28/17 04:45 MCH 28.2 pg (27.0-34.0) 07/28/17 04:45 MCHC 33.5 g/dL (33.0-35.0) 07/28/17 04:45 RDW 14.3 % (11.6-16.5) 07/28/17 04:45 Plt Count 190 X10^3/uL (150.0-450.0) 07/28/17 04:45 Plt Count Comment Adequate (ADEQUATE) 07/28/17 04:45 MPV 9.1 fL (7.4-11.0) 07/28/17 04:45 Neut % 90.2 % (42.0-75.0) H 07/28/17 04:45 Lymph % 4.7 % (21.0-51.0) L 07/28/17 04:45 [place] % 4.9 % (0.0-13.0) 07/28/17 04:45 Eos % 0.0 % (0.9-2.9) L 07/28/17 04:45 Baso % 0.2 % (0.2-1.0) 07/28/17 04:45 Neut # 8.6 x10^3/uL (2.2-4.8) H 07/28/17 04:45 Lymph # 0.4 X10^3/uL (1.3-2.9) L 07/28/17 04:45 [place] # 0.5 x10^3/uL (0.3-0.8) 07/28/17 04:45 Eos # 0.0 x10^3/uL (0.0-0.2) 07/28/17 04:45 Baso # 0.0 X10^3/uL (0.0-0.1) 07/28/17 04:45 Absolute Nucleated RBC 0.0 /100WBC 07/28/17 04:45 Total Counted 100 07/28/17 04:45 Neutrophils % (Manual) 90 % (39-76) H 07/28/17 04:45 Band Neutrophils % 2 % (0-10) 07/28/17 04:45 Lymphocytes % (Manual) 6 % (13-43) L 07/28/17 04:45 Monocytes % (Manual) 2 % (4-9) L 07/28/17 04:45 Plt Morphology Comment Normal (NORMAL) 07/28/17 04:45 RBC Morphology Normal (NORMAL) 07/28/17 04:45 Sodium 128 mmol/L (136-145) L 07/28/17 04:45 Corrected Sodium 129 mmol/L (136-145) L 07/28/17 04:45 Potassium 4.7 mmol/L (3.5-5.1) 07/28/17 04:45 Chloride 95 mmol/L (98-107) L 07/28/17 04:45 Carbon Dioxide 26.9 mmol/L (21-32) 07/28/17 04:45 BUN 26 mg/dL (7-18) H 07/28/17 04:45 Creatinine 0.94 mg/dL (0.70-1.30) 07/28/17 04:45 Est GFR (MDRD) Af Amer > 60 (>60) 07/28/17 04:45 Est GFR (MDRD) Non-Af > 60 (>60) 07/28/17 04:45 Glucose 148 mg/dL (65-99) H 07/28/17 04:45 Calcium 9.5 mg/dL (8.5-10.1) 07/28/17 04:45 Corrected Calcium TNP 07/28/17 04:45 Total Bilirubin 0.20 mg/dL (0.2-1.0) 07/28/17 04:45 AST 30 Units/L (15-37) 07/28/17 04:45 ALT 43 Units/L (12-78) 07/28/17 04:45 Alkaline Phosphatase 31 Units/L (46-116) L 07/28/17 04:45 Creatine Kinase 166 Units/L (39-308) 07/22/17 05:15 CK-MB (CK-2) 3.8 ng/mL (0-4.0) 07/22/17 05:15 CK/CKMB % Calc 2.3 % (<4) 07/22/17 05:15 Troponin I < 0.02 ng/mL (0-1.5) 07/22/17 05:15 Total Protein 6.2 g/dL (6.4-8.2) L 07/28/17 04:45 Albumin 3.6 g/dL (3.4-5.0) 07/28/17 04:45 Globulin 2.6 g/dL (2.5-4.5) 07/28/17 04:45 Albumin/Globulin Ratio 1.4 Ratio (1.1-2.1) 07/28/17 04:45 Prealbumin 15.6 mg/dL (18-35.7) L 07/15/17 12:00 Specimen Type Catherized urine 07/21/17 03:23 Urine Color Yellow (YELLOW) 07/21/17 03:23 Urine Appearance Clear (CLEAR) 07/21/17 03:23 Urine pH 6.5 (5.0 - 8.0) 07/21/17 03:23 Ur Specific [place] 1.015 (1.000-1.030) 07/21/17 03:23 Urine Protein Negative (NEGATIVE) 07/21/17 03:23 Urine Glucose (UA) Negative (NEGATIVE) 07/21/17 03:23 Urine Ketones Negative (NEGATIVE) 07/21/17 03:23 Urine Occult Blood 3+ (NEGATIVE) 07/21/17 03:23 Urine Nitrite Negative (NEGATIVE) 07/21/17 03:23 Urine Bilirubin Negative (NEGATIVE) 07/21/17 03:23 Urine Urobilinogen Normal (NORMAL) 07/21/17 03:23 Ur Leukocyte Esterase 1+ (NEGATIVE) 07/21/17 03:23 Urine RBC 2-6 /HPF (NEGATIVE) 07/21/17 03:23 Urine WBC 0-3 /HPF (NEGATIVE) 07/21/17 03:23 Ur Squamous Epith Cells Rare /HPF (NEGATIVE) 07/21/17 03:23 Urine Bacteria Negative /HPF (NEGATIVE) 07/21/17 03:23 Ur Culture Indicated? No/not indicated 07/21/17 03:23 Influenza Type A (PCR) Negative (NEGATIVE) 07/24/17 22:10 Influenza Type B (PCR) Negative (NEGATIVE) 07/24/17 22:10 - Plan (1) Shortness of breath Status: Acute Plan: supplemental oxygen, respiratory treatments, continue to monitor (2) Protein deficiency Status: Acute Plan: PROCALAMINE AT 40ML/HR, ALBUMIN 25% IV DAILY, CONTINUE TO MONITOR (3) Dementia Status: Acute Qualifiers: Dementia type: vascular dementia Dementia behavioral disturbance: with behavioral disturbance Qualified Code(s): F01.51 - Vascular dementia with behavioral disturbance Plan: SEROQUEL 25MG PO HS, CONTINUE TO MONITOR (4) Agitation Status: Acute Plan: CONTINUE TO MONITOR (5) Rhabdomyolysis Status: Resolved Qualifiers: Rhabdomyolysis type: traumatic Encounter type: initial encounter Qualified Code(s): T79.6XXA - Traumatic ischemia of muscle, initial encounter Plan: CONTINUE TO MONITOR (6) Influenza Status: Acute Plan: TAMIFLU 75MG PO BID, CONTINUE TO MONITOR (7) Fall Status: Acute Qualifiers: Encounter type: initial encounter Qualified Code(s): W19.XXXA - Unspecified fall, initial encounter Plan: PHYSICAL THERAPY CONSULT, CONTINUE TO MONITOR (8) Urinary retention Status: Acute Plan: FLOMAX 0.4MG PO BID, CONTINUE TO MONITOR
--- NOTE | 2017-07-28 13:19 | PCM.PROG ---
Progress Note - Progress Note for Day of Date: 07/27/17 - Subjective Subjective: WAS ADMITTED FOR RHABDOMYOLYSIS AND WEAKNESS TO LOWER EXTREMITIES. RHABDOMYOLYSIS HAS RESOLVED. TODAY, PATIENT IS ALERT AND ORIENTED, LYING IN BED ON MORNING ROUNDS. HE CONTINUES WITH INTERMITTENT CONFUSION, SHORTNESS OF BREATH, NON-PRODUCTIVE COUGH, AND GENERALIZED WEAKNESS. ON EXAMINATION, HEART IS REGULAR IN RATE AND RHYTHM. BILATERAL LUNGS ARE NOTED WITH DIMINISHED LUNG SOUNDS THROUGHOUT. ABDOMEN IS ROUND, SOFT, AND NON-TENDER. NORMAL BOWEL SOUNDS NOTED IN ALL QUADRANTS. HIS VITALS THIS MORNING ARE 98.4-96- 22-92%-178/98. TEMPERTURE DID REACH 100.5 AT MIDNIGHT. LABS WERE OBTAINED THIS MORNING. ABNORMAL LAB VALUES INCLUDE THE FOLLOWING: RBC 4.08, HGB 11.4, HCT 34.6 , SODIUM 130, CHLORIDE 95, BUN 25, GLUCOSE 122, ALK PHOS 38. BLOOD CULTURES REPORT GROWTH OF ENTEROCOCCUS FAECALIS. IT IS RESISTANT TO THE ROCEPHIN THAT HE IS CURRENTLY ON. WE WILL DISCONTINUE THE ROCEPHIN TODAY AND START CIPRO 400MG IV Q12H. OTHERWISE, WE WILL CONTINUE WITH CURRENT PLAN OF CARE TODAY. WE WILL CONTINUE TO HAVE PHYSICAL THERAPY WORK WITH PATIENT ON AMBULATING. OTHERWISE, WE PLAN TO FOLLOW UP WITH AM LABS AND CONTINUE TO MONITOR PATIENT. - Past Medical Family Social History Past Med/Fam/Surg Hx: No changes since H&P Allergies: Allergies olanzapine [From Zyprexa] Allergy (Verified 07/22/17 12:45) - Review of Systems ROS: No change since H&P - Vital Signs and I&O's Vital Signs: Temperature 98.1 F Pulse Rate [Left Brachial] 64 Pulse Rate [Right Brachial] 96 Pulse Rate [Left] 73 Pulse Rate 63 Respiratory Rate 20 Blood Pressure [Right Arm] 158/84 Blood Pressure [Left Arm] 140/77 Blood Pressure 143/89 O2 Sat by Pulse Oximetry 63 Intake and Output: Intake & Output 07/26/17 07/27/17 07/28/17 07/29/17 11:59 11:59 11:59 11:59 Intake Total 1070 1855 2530 Output Total 400 Balance 1070 1455 2530 - Physical Exam Oriented: Normal Eyes: Normal. negative: Blurred Vision, Diplopia, Discharge, Pain, Redness, Photophobia, Other Ear: Normal. negative: Right, Left, Swelling, Ecchymosis, Hemotypanum, Abrasion , Laceration Nose: Normal. negative: Injected, Discharge, Blood, Other Throat: Normal. negative: Tonsillar Hypertrophy, Red, Exudate, Dry, Other Respiratory: Generalized, Diminished Cardiovascular: negative: Normal, Tachycardia, Bradycardia, Irregular, S3, S4, Systolic, Diastolic, Murmur, Edema, Other : Normal Auscultation: Bowel Sounds: Normal. negative: Bruit, Absent, Increased, Decreased, High Pitched, Other Palpation: Normal Tenderness: Normal. negative: Rebound, Guarding, Rigidity Skin: Decreased Turgur Musculoskeletal: Normal, Instability (GENERALIZED WEAKNESS AND INSTABILITY) Psychiatric: Other (intermittent confusion ) Mood Description: Calm Affect: Normal Speech Pattern: Unclear - Laboratory and Diagnostics Result Diagrams: 07/28/17 04:45 07/28/17 04:45 Labs: 07/24/17 19:48 Blood Blood Culture - Final Enterococcus Faecalis 07/24/17 19:42 Blood Blood Culture - Final Enterococcus Faecalis 07/23/17 10:28 Sputum - Expectorated Sputum Sputum Culture - Final 07/23/17 10:28 Sputum - Expectorated Sputum - Final Laboratory WBC 9.5 X10^3/uL (3.6-10.0) 07/28/17 04:45 RBC 3.91 X10^6/uL (4.7-6.0) L 07/28/17 04:45 Hgb 11.0 g/dL (13.5-18.0) L 07/28/17 04:45 Hct 32.9 % (42.0-54.0) L 07/28/17 04:45 MCV 84.1 fL (80.0-100.0) 07/28/17 04:45 MCH 28.2 pg (27.0-34.0) 07/28/17 04:45 MCHC 33.5 g/dL (33.0-35.0) 07/28/17 04:45 RDW 14.3 % (11.6-16.5) 07/28/17 04:45 Plt Count 190 X10^3/uL (150.0-450.0) 07/28/17 04:45 Plt Count Comment Adequate (ADEQUATE) 07/28/17 04:45 MPV 9.1 fL (7.4-11.0) 07/28/17 04:45 Neut % 90.2 % (42.0-75.0) H 07/28/17 04:45 Lymph % 4.7 % (21.0-51.0) L 07/28/17 04:45 [place] % 4.9 % (0.0-13.0) 07/28/17 04:45 Eos % 0.0 % (0.9-2.9) L 07/28/17 04:45 Baso % 0.2 % (0.2-1.0) 07/28/17 04:45 Neut # 8.6 x10^3/uL (2.2-4.8) H 07/28/17 04:45 Lymph # 0.4 X10^3/uL (1.3-2.9) L 07/28/17 04:45 [place] # 0.5 x10^3/uL (0.3-0.8) 07/28/17 04:45 Eos # 0.0 x10^3/uL (0.0-0.2) 07/28/17 04:45 Baso # 0.0 X10^3/uL (0.0-0.1) 07/28/17 04:45 Absolute Nucleated RBC 0.0 /100WBC 07/28/17 04:45 Total Counted 100 07/28/17 04:45 Neutrophils % (Manual) 90 % (39-76) H 07/28/17 04:45 Band Neutrophils % 2 % (0-10) 07/28/17 04:45 Lymphocytes % (Manual) 6 % (13-43) L 07/28/17 04:45 Monocytes % (Manual) 2 % (4-9) L 07/28/17 04:45 Plt Morphology Comment Normal (NORMAL) 07/28/17 04:45 RBC Morphology Normal (NORMAL) 07/28/17 04:45 Sodium 128 mmol/L (136-145) L 07/28/17 04:45 Corrected Sodium 129 mmol/L (136-145) L 07/28/17 04:45 Potassium 4.7 mmol/L (3.5-5.1) 07/28/17 04:45 Chloride 95 mmol/L (98-107) L 07/28/17 04:45 Carbon Dioxide 26.9 mmol/L (21-32) 07/28/17 04:45 BUN 26 mg/dL (7-18) H 07/28/17 04:45 Creatinine 0.94 mg/dL (0.70-1.30) 07/28/17 04:45 Est GFR (MDRD) Af Amer > 60 (>60) 07/28/17 04:45 Est GFR (MDRD) Non-Af > 60 (>60) 07/28/17 04:45 Glucose 148 mg/dL (65-99) H 07/28/17 04:45 Calcium 9.5 mg/dL (8.5-10.1) 07/28/17 04:45 Corrected Calcium TNP 07/28/17 04:45 Total Bilirubin 0.20 mg/dL (0.2-1.0) 07/28/17 04:45 AST 30 Units/L (15-37) 07/28/17 04:45 ALT 43 Units/L (12-78) 07/28/17 04:45 Alkaline Phosphatase 31 Units/L (46-116) L 07/28/17 04:45 Creatine Kinase 166 Units/L (39-308) 07/22/17 05:15 CK-MB (CK-2) 3.8 ng/mL (0-4.0) 07/22/17 05:15 CK/CKMB % Calc 2.3 % (<4) 07/22/17 05:15 Troponin I < 0.02 ng/mL (0-1.5) 07/22/17 05:15 Total Protein 6.2 g/dL (6.4-8.2) L 07/28/17 04:45 Albumin 3.6 g/dL (3.4-5.0) 07/28/17 04:45 Globulin 2.6 g/dL (2.5-4.5) 07/28/17 04:45 Albumin/Globulin Ratio 1.4 Ratio (1.1-2.1) 07/28/17 04:45 Prealbumin 15.6 mg/dL (18-35.7) L 07/15/17 12:00 Specimen Type Catherized urine 07/21/17 03:23 Urine Color Yellow (YELLOW) 07/21/17 03:23 Urine Appearance Clear (CLEAR) 07/21/17 03:23 Urine pH 6.5 (5.0 - 8.0) 07/21/17 03:23 Ur Specific [place] 1.015 (1.000-1.030) 07/21/17 03:23 Urine Protein Negative (NEGATIVE) 07/21/17 03:23 Urine Glucose (UA) Negative (NEGATIVE) 07/21/17 03:23 Urine Ketones Negative (NEGATIVE) 07/21/17 03:23 Urine Occult Blood 3+ (NEGATIVE) 07/21/17 03:23 Urine Nitrite Negative (NEGATIVE) 07/21/17 03:23 Urine Bilirubin Negative (NEGATIVE) 07/21/17 03:23 Urine Urobilinogen Normal (NORMAL) 07/21/17 03:23 Ur Leukocyte Esterase 1+ (NEGATIVE) 07/21/17 03:23 Urine RBC 2-6 /HPF (NEGATIVE) 07/21/17 03:23 Urine WBC 0-3 /HPF (NEGATIVE) 07/21/17 03:23 Ur Squamous Epith Cells Rare /HPF (NEGATIVE) 07/21/17 03:23 Urine Bacteria Negative /HPF (NEGATIVE) 07/21/17 03:23 Ur Culture Indicated? No/not indicated 07/21/17 03:23 Influenza Type A (PCR) Negative (NEGATIVE) 07/24/17 22:10 Influenza Type B (PCR) Negative (NEGATIVE) 07/24/17 22:10 - Plan (1) Enterococcus faecalis infection Status: Acute Plan: CIPRO 400MG IV Q12H, CONTINUE TO MONITOR (2) Shortness of breath Status: Acute Plan: supplemental oxygen, respiratory treatments, continue to monitor (3) Protein deficiency Status: Acute Plan: PROCALAMINE AT 40ML/HR, ALBUMIN 25% IV DAILY, CONTINUE TO MONITOR (4) Dementia Status: Acute Qualifiers: Dementia type: vascular dementia Dementia behavioral disturbance: with behavioral disturbance Qualified Code(s): F01.51 - Vascular dementia with behavioral disturbance Plan: SEROQUEL 25MG PO HS, CONTINUE TO MONITOR (5) Agitation Status: Acute Plan: CONTINUE TO MONITOR (6) Rhabdomyolysis Status: Resolved Qualifiers: Rhabdomyolysis type: traumatic Encounter type: initial encounter Qualified Code(s): T79.6XXA - Traumatic ischemia of muscle, initial encounter Plan: CONTINUE TO MONITOR (7) Influenza Status: Acute Plan: TAMIFLU 75MG PO BID, CONTINUE TO MONITOR (8) Fall Status: Acute Qualifiers: Encounter type: initial encounter Qualified Code(s): W19.XXXA - Unspecified fall, initial encounter Plan: PHYSICAL THERAPY CONSULT, CONTINUE TO MONITOR (9) Urinary retention Status: Acute Plan: FLOMAX 0.4MG PO BID, CONTINUE TO MONITOR
[2017-07-29] MEDS: NS 1000 ML 1,000 ML IV SCH ×2 (02:00→08:57)
[2017-07-29 05:26] LABS: BASOPHILS % (AUTO) 0.2 % (0.2-1.0); HEMATOCRIT 34.1 % (42.0-54.0); HEMOGLOBIN 11.4 g/dL (13.5-18.0); LYMPHOCYTES # (AUTO) 0.5 X10^3/uL (1.3-2.9); LYMPHOCYTES % (AUTO) 5.1 % (21.0-51.0); MEAN CORPUSCULAR HEMOGLOBIN 28.3 pg (27.0-34.0); MEAN CORPUSCULAR HGB CONC 33.4 g/dL (33.0-35.0); MEAN CORPUSCULAR VOLUME 84.6 fL (80.0-100.0); MONOCYTES # (AUTO) 0.6 x10^3/uL (0.3-0.8); MONOCYTES % (AUTO) 6.1 % (0.0-13.0); NEUTROPHILS # (AUTO) 8.9 x10^3/uL (2.2-4.8); NEUTROPHILS % (AUTO) 88.6 % (42.0-75.0); PLATELET COUNT 199 X10^3/uL (150.0-450.0); RED BLOOD COUNT 4.03 X10^6/uL (4.7-6.0); RED CELL DISTRIBUTION WIDTH 14.1 % (11.6-16.5)
[2017-07-29 05:44] LABS: ALANINE AMINOTRANSFERASE 41 Units/L (12-78); ALBUMIN 3.6 g/dL (3.4-5.0); ALKALINE PHOSPHATASE 27 Units/L (46-116); ASPARTATE AMINO TRANSFERASE 19 Units/L (15-37); BLOOD UREA NITROGEN 24 mg/dL (7-18); CALCIUM 9.4 mg/dL (8.5-10.1); CARBON DIOXIDE 28.3 mmol/L (21-32); CHLORIDE 98 mmol/L (98-107); COR NA(FOR HYPERGLY) 133 mmol/L (136-145); CREATININE 0.93 mg/dL (0.70-1.30); SODIUM 132 mmol/L (136-145); eGFR BLACK RACES > 60 (>60); eGFR NON BLACK RACES > 60 (>60)
[2017-07-29] MEDS: CIPRO IV 400 MG PREMIX* 400 MG/200 ML IV.SOLN. IV SCH ×2 (08:57→22:16)
[2017-07-29] MEDS: MUCINEX DM PO SCH ×2 (08:59→22:17)
[2017-07-29] MEDS: MEGACE PO SCH ×2 (08:59→22:17)
[2017-07-29] MEDS: FLOMAX PO SCH ×2 (08:59→22:17)
[2017-07-29] MEDS: TAMIFLU PO SCH ×2 (08:59→22:17)
[2017-07-29] MEDS: COZAAR PO SCH (08:59)
[2017-07-29] MEDS: ASPIRIN EC 81 MG PO SCH (08:59)
[2017-07-29] MEDS: COLACE CAP 100 MG PO SCH ×2 (08:59→22:16)
[2017-07-29] MEDS: PROTONIX INJ 40 MG VIAL IVP SCH ×2 (08:59→22:16)
[2017-07-29] MEDS: NORVASC TAB 5 MG PO SCH (08:59)
[2017-07-29] MEDS: XOPENEX 1.25 MG/3 ML NEBULE NEB SCH ×4 (09:00→20:27)
[2017-07-29] MEDS: MIRALAX POWDER (1 DOSE 17GM) PO SCH (09:00)
--- NOTE | 2017-07-29 09:53 | PCM.PROG ---
Progress Note - Progress Note for Day of Date: 07/28/17 - Subjective Subjective: WAS ADMITTED FOR RHABDOMYOLYSIS AND WEAKNESS TO LOWER EXTREMITIES. RHABDOMYOLYSIS HAS RESOLVED. TODAY, PATIENT IS ALERT AND ORIENTED, LYING IN BED ON MORNING ROUNDS. HIS ONLY COMPLAINT TODAYS IS OF GENERALIZED WEAKNESS. STAFF AND PATIENTS SON REPORTS THAT PATIENT SLEPT WELL THROUGHOUT THE NIGHT. ON EXAMINATION, HEART IS REGULAR IN RATE AND RHYTHM. BILATERAL LUNGS CONTINUE WITH DIMINISHED LUNG SOUNDS THROUGHOUT. ABDOMEN IS ROUND, SOFT, AND NON-TENDER. NORMAL BOWEL SOUNDS NOTED IN ALL QUADRANTS. HIS VITALS THIS MORNING ARE 97.4-56-20-98%-140/76. TEMPERTURE DID REACH 100.5 AT MIDNIGHT. LABS WERE OBTAINED THIS MORNING. ABNORMAL LAB VALUES INCLUDE THE FOLLOWING: RBC 3.91, HGB 11.0, HCT 32.9, SODIUM 129, CHLORIDE 95, BUN 26, GLUCOSE 148, ALK PHOS 31, TOTAL PROTEIN 6.2. HE CONTINUES ON CIPRO 400MG IV Q12H FOR POSITIVE BLOOD CULTURES. PHYSICAL THERAPY REPORTS THAT PATIENT CONTINUES WITH WEAKNESS WHEN AMBULATING, BUT IS IMPROVING DAILY. HE CONTINUES ON SEROQUEL FOR DEMENTIA. THIS SEEMS TO BE WORKING WELL FOR HIM. AFTER DISCHARGE , PLANS ARE FOR PATIENT TO MOVE TO A PRE BILLING [facility]IC[facility]ARE FACILITY FOR PERMANENT PLACEMENT. WE WILL CONTINUE WITH CURRENT PLAN OF CARE TODAY. OTHERWISE, WE PLAN TO FOLLOW UP WITH AM LABS AND CONTINUE TO MONITOR PATIENT. - Past Medical Family Social History Past Med/Fam/Surg Hx: No changes since H&P Allergies: Allergies olanzapine [From Zyprexa] Allergy (Verified 07/22/17 12:45) - Review of Systems ROS: No change since H&P - Vital Signs and I&O's Vital Signs: Temperature 97.4 F Pulse Rate [Left Brachial] 64 Pulse Rate [Right Brachial] 80 Pulse Rate [Left] 73 Pulse Rate 88 Respiratory Rate 18 Blood Pressure [Right Arm] 157/98 Blood Pressure [Left Arm] 140/77 Blood Pressure 143/89 O2 Sat by Pulse Oximetry 97 Intake and Output: Intake & Output 07/26/17 07/27/17 07/28/17 07/29/17 11:59 11:59 11:59 11:59 Intake Total 1070 1855 2530 1700 Output Total 400 Balance 1070 1455 2530 1700 - Physical Exam Oriented: Normal Eyes: Normal. negative: Blurred Vision, Diplopia, Discharge, Pain, Redness, Photophobia, Other Ear: Normal. negative: Right, Left, Swelling, Ecchymosis, Hemotypanum, Abrasion , Laceration Nose: Normal. negative: Injected, Discharge, Blood, Other Throat: Normal. negative: Tonsillar Hypertrophy, Red, Exudate, Dry, Other Respiratory: Generalized, Diminished Cardiovascular: negative: Normal, Tachycardia, Bradycardia, Irregular, S3, S4, Systolic, Diastolic, Murmur, Edema, Other : Normal Auscultation: Bowel Sounds: Normal. negative: Bruit, Absent, Increased, Decreased, High Pitched, Other Palpation: Normal Tenderness: Normal. negative: Rebound, Guarding, Rigidity Skin: Decreased Turgur Musculoskeletal: Normal, Instability (GENERALIZED WEAKNESS ) Psychiatric: Normal Mood Description: Calm Affect: Normal Speech Pattern: Clear, Appropriate - Laboratory and Diagnostics Result Diagrams: 07/29/17 04:50 07/29/17 04:50 Labs: 07/24/17 19:48 Blood Blood Culture - Final Enterococcus Faecalis 07/24/17 19:42 Blood Blood Culture - Final Enterococcus Faecalis 07/23/17 10:28 Sputum - Expectorated Sputum Sputum Culture - Final 07/23/17 10:28 Sputum - Expectorated Sputum - Final Laboratory WBC 10.0 X10^3/uL (3.6-10.0) 07/29/17 04:50 RBC 4.03 X10^6/uL (4.7-6.0) L 07/29/17 04:50 Hgb 11.4 g/dL (13.5-18.0) L 07/29/17 04:50 Hct 34.1 % (42.0-54.0) L 07/29/17 04:50 MCV 84.6 fL (80.0-100.0) 07/29/17 04:50 MCH 28.3 pg (27.0-34.0) 07/29/17 04:50 MCHC 33.4 g/dL (33.0-35.0) 07/29/17 04:50 RDW 14.1 % (11.6-16.5) 07/29/17 04:50 Plt Count 199 X10^3/uL (150.0-450.0) 07/29/17 04:50 Plt Count Comment Adequate (ADEQUATE) 07/28/17 04:45 MPV 9.0 fL (7.4-11.0) 07/29/17 04:50 Neut % 88.6 % (42.0-75.0) H 07/29/17 04:50 Lymph % 5.1 % (21.0-51.0) L 07/29/17 04:50 [place] % 6.1 % (0.0-13.0) 07/29/17 04:50 Eos % 0.0 % (0.9-2.9) L 07/29/17 04:50 Baso % 0.2 % (0.2-1.0) 07/29/17 04:50 Neut # 8.9 x10^3/uL (2.2-4.8) H 07/29/17 04:50 Lymph # 0.5 X10^3/uL (1.3-2.9) L 07/29/17 04:50 [place] # 0.6 x10^3/uL (0.3-0.8) 07/29/17 04:50 Eos # 0.0 x10^3/uL (0.0-0.2) 07/29/17 04:50 Baso # 0.0 X10^3/uL (0.0-0.1) 07/29/17 04:50 Absolute Nucleated RBC 0.3 /100WBC 07/29/17 04:50 Total Counted 100 07/28/17 04:45 Neutrophils % (Manual) 90 % (39-76) H 07/28/17 04:45 Band Neutrophils % 2 % (0-10) 07/28/17 04:45 Lymphocytes % (Manual) 6 % (13-43) L 07/28/17 04:45 Monocytes % (Manual) 2 % (4-9) L 07/28/17 04:45 Plt Morphology Comment Normal (NORMAL) 07/28/17 04:45 RBC Morphology Normal (NORMAL) 07/28/17 04:45 Sodium 132 mmol/L (136-145) L 07/29/17 04:50 Corrected Sodium 133 mmol/L (136-145) L 07/29/17 04:50 Potassium 3.7 mmol/L (3.5-5.1) 07/29/17 04:50 Chloride 98 mmol/L (98-107) 07/29/17 04:50 Carbon Dioxide 28.3 mmol/L (21-32) 07/29/17 04:50 BUN 24 mg/dL (7-18) H 07/29/17 04:50 Creatinine 0.93 mg/dL (0.70-1.30) 07/29/17 04:50 Est GFR (MDRD) Af Amer > 60 (>60) 07/29/17 04:50 Est GFR (MDRD) Non-Af > 60 (>60) 07/29/17 04:50 Glucose 122 mg/dL (65-99) H 07/29/17 04:50 Calcium 9.4 mg/dL (8.5-10.1) 07/29/17 04:50 Corrected Calcium TNP 07/29/17 04:50 Total Bilirubin 0.20 mg/dL (0.2-1.0) 07/29/17 04:50 AST 19 Units/L (15-37) 07/29/17 04:50 ALT 41 Units/L (12-78) 07/29/17 04:50 Alkaline Phosphatase 27 Units/L (46-116) L 07/29/17 04:50 Creatine Kinase 166 Units/L (39-308) 07/22/17 05:15 CK-MB (CK-2) 3.8 ng/mL (0-4.0) 07/22/17 05:15 CK/CKMB % Calc 2.3 % (<4) 07/22/17 05:15 Troponin I < 0.02 ng/mL (0-1.5) 07/22/17 05:15 Total Protein 6.0 g/dL (6.4-8.2) L 07/29/17 04:50 Albumin 3.6 g/dL (3.4-5.0) 07/29/17 04:50 Globulin 2.4 g/dL (2.5-4.5) L 07/29/17 04:50 Albumin/Globulin Ratio 1.5 Ratio (1.1-2.1) 07/29/17 04:50 Prealbumin 15.6 mg/dL (18-35.7) L 07/15/17 12:00 Specimen Type Catherized urine 07/21/17 03:23 Urine Color Yellow (YELLOW) 07/21/17 03:23 Urine Appearance Clear (CLEAR) 07/21/17 03:23 Urine pH 6.5 (5.0 - 8.0) 07/21/17 03:23 Ur Specific [place] 1.015 (1.000-1.030) 07/21/17 03:23 Urine Protein Negative (NEGATIVE) 07/21/17 03:23 Urine Glucose (UA) Negative (NEGATIVE) 07/21/17 03:23 Urine Ketones Negative (NEGATIVE) 07/21/17 03:23 Urine Occult Blood 3+ (NEGATIVE) 07/21/17 03:23 Urine Nitrite Negative (NEGATIVE) 07/21/17 03:23 Urine Bilirubin Negative (NEGATIVE) 07/21/17 03:23 Urine Urobilinogen Normal (NORMAL) 07/21/17 03:23 Ur Leukocyte Esterase 1+ (NEGATIVE) 07/21/17 03:23 Urine RBC 2-6 /HPF (NEGATIVE) 07/21/17 03:23 Urine WBC 0-3 /HPF (NEGATIVE) 07/21/17 03:23 Ur Squamous Epith Cells Rare /HPF (NEGATIVE) 07/21/17 03:23 Urine Bacteria Negative /HPF (NEGATIVE) 07/21/17 03:23 Ur Culture Indicated? No/not indicated 07/21/17 03:23 Influenza Type A (PCR) Negative (NEGATIVE) 07/24/17 22:10 Influenza Type B (PCR) Negative (NEGATIVE) 07/24/17 22:10 - Plan (1) Enterococcus faecalis infection Status: Acute Plan: CIPRO 400MG IV Q12H, CONTINUE TO MONITOR (2) Shortness of breath Status: Acute Plan: supplemental oxygen, respiratory treatments, continue to monitor (3) Protein deficiency Status: Acute Plan: PROCALAMINE AT 40ML/HR, ALBUMIN 25% IV DAILY, CONTINUE TO MONITOR (4) Dementia Status: Acute Qualifiers: Dementia type: vascular dementia Dementia behavioral disturbance: with behavioral disturbance Qualified Code(s): F01.51 - Vascular dementia with behavioral disturbance Plan: SEROQUEL 25MG PO HS, CONTINUE TO MONITOR (5) Agitation Status: Acute Plan: CONTINUE TO MONITOR (6) Rhabdomyolysis Status: Resolved Qualifiers: Rhabdomyolysis type: traumatic Encounter type: initial encounter Qualified Code(s): T79.6XXA - Traumatic ischemia of muscle, initial encounter Plan: CONTINUE TO MONITOR (7) Influenza Status: Acute Plan: TAMIFLU 75MG PO BID, CONTINUE TO MONITOR (8) Fall Status: Acute Qualifiers: Encounter type: initial encounter Qualified Code(s): W19.XXXA - Unspecified fall, initial encounter Plan: PHYSICAL THERAPY CONSULT, CONTINUE TO MONITOR (9) Urinary retention Status: Acute Plan: FLOMAX 0.4MG PO BID, CONTINUE TO MONITOR
--- NOTE | 2017-07-29 10:05 | PCM.PROG ---
Progress Note - Progress Note for Day of Date: 07/29/17 - Subjective Subjective: IS ALERT AND ORIENTED, LYING IN BED ON MORNING ROUNDS. HE CONTINUES WITH GENERALIZED WEAKNESS, OTHERWISE, REPORTS FEELING WELL. STAFF REPORTS THAT HE DID HAVE SOME INTERMITTENT CONFUSION YESTERDAY, BUT WAS REORIENTED AND REDIRECTED EASILY. THEY REPORT THAT HE SLEPT WELL THROUGHOUT THE NIGHT AND HAS BEEN COOPERATIVE WITH STAFF AND WITH PHYSICAL THERAPY. ON EXAMINATION, HEART IS REGULAR IN RATE AND RHYTHM. BILATERAL LUNGS CONTINUE WITH DIMINISHED LUNG SOUNDS THROUGHOUT. ABDOMEN IS ROUND, SOFT, AND NON-TENDER. NORMAL BOWEL SOUNDS NOTED IN ALL QUADRANTS. HIS VITALS THIS MORNING ARE 98.1-64- 20-99%-158/84. HE WAS AFEBRILE THROUGHOUT THE NIGHT. LABS WERE OBTAINED THIS MORNING. ABNORMAL LAB VALUES INCLUDE THE FOLLOWING: RBC 4.03, HGB 11.4, HCT 34.1 , SODIUM 133, BUN 24, GLUCOSE 122, ALK PHOS 27, TOTAL PROTEIN 6.0, GLOBULIN 2.4. HE CONTINUES ON CIPRO 400MG IV Q12H FOR POSITIVE BLOOD CULTURES. WE WILL CONTINUE WITH PHYSICAL THERAPY. WE ARE DISCUSSING PLACEMENT AFTER DISCHARGE WITH CASE MANAGEMENT. WE WILL CONTINUE WITH CURRENT PLAN OF CARE TODAY. OTHERWISE, WE PLAN TO FOLLOW UP WITH AM LABS AND CONTINUE TO MONITOR PATIENT. - Past Medical Family Social History Past Med/Fam/Surg Hx: No changes since H&P Allergies: Allergies olanzapine [From Zyprexa] Allergy (Verified 07/22/17 12:45) - Review of Systems ROS: No change since H&P - Vital Signs and I&O's Vital Signs: Temperature 97.4 F Pulse Rate [Left Brachial] 64 Pulse Rate [Right Brachial] 80 Pulse Rate [Left] 73 Pulse Rate 74 Respiratory Rate 18 Blood Pressure [Right Arm] 157/98 Blood Pressure [Left Arm] 140/77 Blood Pressure 143/89 O2 Sat by Pulse Oximetry 96 Intake and Output: Intake & Output 07/26/17 07/27/17 07/28/17 07/29/17 11:59 11:59 11:59 11:59 Intake Total 1070 1855 2530 1700 Output Total 400 Balance 1070 1455 2530 1700 - Physical Exam Oriented: Normal Eyes: Normal. negative: Blurred Vision, Diplopia, Discharge, Pain, Redness, Photophobia, Other Ear: Normal. negative: Right, Left, Swelling, Ecchymosis, Hemotypanum, Abrasion , Laceration Nose: Normal. negative: Injected, Discharge, Blood, Other Throat: Normal. negative: Tonsillar Hypertrophy, Red, Exudate, Dry, Other Respiratory: Generalized, Diminished Cardiovascular: negative: Normal, Tachycardia, Bradycardia, Irregular, S3, S4, Systolic, Diastolic, Murmur, Edema, Other : Normal Auscultation: Bowel Sounds: Normal. negative: Bruit, Absent, Increased, Decreased, High Pitched, Other Palpation: Normal Tenderness: Normal. negative: Rebound, Guarding, Rigidity Skin: Decreased Turgur Musculoskeletal: Normal, Instability (GENERALIZED WEAKNESS ) Psychiatric: Normal Mood Description: Calm Affect: Normal Speech Pattern: Clear, Appropriate - Laboratory and Diagnostics Result Diagrams: 07/29/17 04:50 07/29/17 04:50 Labs: 07/24/17 19:48 Blood Blood Culture - Final Enterococcus Faecalis 07/24/17 19:42 Blood Blood Culture - Final Enterococcus Faecalis 07/23/17 10:28 Sputum - Expectorated Sputum Sputum Culture - Final 07/23/17 10:28 Sputum - Expectorated Sputum - Final Laboratory WBC 10.0 X10^3/uL (3.6-10.0) 07/29/17 04:50 RBC 4.03 X10^6/uL (4.7-6.0) L 07/29/17 04:50 Hgb 11.4 g/dL (13.5-18.0) L 07/29/17 04:50 Hct 34.1 % (42.0-54.0) L 07/29/17 04:50 MCV 84.6 fL (80.0-100.0) 07/29/17 04:50 MCH 28.3 pg (27.0-34.0) 07/29/17 04:50 MCHC 33.4 g/dL (33.0-35.0) 07/29/17 04:50 RDW 14.1 % (11.6-16.5) 07/29/17 04:50 Plt Count 199 X10^3/uL (150.0-450.0) 07/29/17 04:50 Plt Count Comment Adequate (ADEQUATE) 07/28/17 04:45 MPV 9.0 fL (7.4-11.0) 07/29/17 04:50 Neut % 88.6 % (42.0-75.0) H 07/29/17 04:50 Lymph % 5.1 % (21.0-51.0) L 07/29/17 04:50 [place] % 6.1 % (0.0-13.0) 07/29/17 04:50 Eos % 0.0 % (0.9-2.9) L 07/29/17 04:50 Baso % 0.2 % (0.2-1.0) 07/29/17 04:50 Neut # 8.9 x10^3/uL (2.2-4.8) H 07/29/17 04:50 Lymph # 0.5 X10^3/uL (1.3-2.9) L 07/29/17 04:50 [place] # 0.6 x10^3/uL (0.3-0.8) 07/29/17 04:50 Eos # 0.0 x10^3/uL (0.0-0.2) 07/29/17 04:50 Baso # 0.0 X10^3/uL (0.0-0.1) 07/29/17 04:50 Absolute Nucleated RBC 0.3 /100WBC 07/29/17 04:50 Total Counted 100 07/28/17 04:45 Neutrophils % (Manual) 90 % (39-76) H 07/28/17 04:45 Band Neutrophils % 2 % (0-10) 07/28/17 04:45 Lymphocytes % (Manual) 6 % (13-43) L 07/28/17 04:45 Monocytes % (Manual) 2 % (4-9) L 07/28/17 04:45 Plt Morphology Comment Normal (NORMAL) 07/28/17 04:45 RBC Morphology Normal (NORMAL) 07/28/17 04:45 Sodium 132 mmol/L (136-145) L 07/29/17 04:50 Corrected Sodium 133 mmol/L (136-145) L 07/29/17 04:50 Potassium 3.7 mmol/L (3.5-5.1) 07/29/17 04:50 Chloride 98 mmol/L (98-107) 07/29/17 04:50 Carbon Dioxide 28.3 mmol/L (21-32) 07/29/17 04:50 BUN 24 mg/dL (7-18) H 07/29/17 04:50 Creatinine 0.93 mg/dL (0.70-1.30) 07/29/17 04:50 Est GFR (MDRD) Af Amer > 60 (>60) 07/29/17 04:50 Est GFR (MDRD) Non-Af > 60 (>60) 07/29/17 04:50 Glucose 122 mg/dL (65-99) H 07/29/17 04:50 Calcium 9.4 mg/dL (8.5-10.1) 07/29/17 04:50 Corrected Calcium TNP 07/29/17 04:50 Total Bilirubin 0.20 mg/dL (0.2-1.0) 07/29/17 04:50 AST 19 Units/L (15-37) 07/29/17 04:50 ALT 41 Units/L (12-78) 07/29/17 04:50 Alkaline Phosphatase 27 Units/L (46-116) L 07/29/17 04:50 Creatine Kinase 166 Units/L (39-308) 07/22/17 05:15 CK-MB (CK-2) 3.8 ng/mL (0-4.0) 07/22/17 05:15 CK/CKMB % Calc 2.3 % (<4) 07/22/17 05:15 Troponin I < 0.02 ng/mL (0-1.5) 07/22/17 05:15 Total Protein 6.0 g/dL (6.4-8.2) L 07/29/17 04:50 Albumin 3.6 g/dL (3.4-5.0) 07/29/17 04:50 Globulin 2.4 g/dL (2.5-4.5) L 07/29/17 04:50 Albumin/Globulin Ratio 1.5 Ratio (1.1-2.1) 07/29/17 04:50 Prealbumin 15.6 mg/dL (18-35.7) L 07/15/17 12:00 Specimen Type Catherized urine 07/21/17 03:23 Urine Color Yellow (YELLOW) 07/21/17 03:23 Urine Appearance Clear (CLEAR) 07/21/17 03:23 Urine pH 6.5 (5.0 - 8.0) 07/21/17 03:23 Ur Specific [place] 1.015 (1.000-1.030) 07/21/17 03:23 Urine Protein Negative (NEGATIVE) 07/21/17 03:23 Urine Glucose (UA) Negative (NEGATIVE) 07/21/17 03:23 Urine Ketones Negative (NEGATIVE) 07/21/17 03:23 Urine Occult Blood 3+ (NEGATIVE) 07/21/17 03:23 Urine Nitrite Negative (NEGATIVE) 07/21/17 03:23 Urine Bilirubin Negative (NEGATIVE) 07/21/17 03:23 Urine Urobilinogen Normal (NORMAL) 07/21/17 03:23 Ur Leukocyte Esterase 1+ (NEGATIVE) 07/21/17 03:23 Urine RBC 2-6 /HPF (NEGATIVE) 07/21/17 03:23 Urine WBC 0-3 /HPF (NEGATIVE) 07/21/17 03:23 Ur Squamous Epith Cells Rare /HPF (NEGATIVE) 07/21/17 03:23 Urine Bacteria Negative /HPF (NEGATIVE) 07/21/17 03:23 Ur Culture Indicated? No/not indicated 07/21/17 03:23 Influenza Type A (PCR) Negative (NEGATIVE) 07/24/17 22:10 Influenza Type B (PCR) Negative (NEGATIVE) 07/24/17 22:10 - Plan (1) Enterococcus faecalis infection Status: Acute Plan: CIPRO 400MG IV Q12H, CONTINUE TO MONITOR (2) Shortness of breath Status: Acute Plan: supplemental oxygen, respiratory treatments, continue to monitor (3) Protein deficiency Status: Acute Plan: PROCALAMINE AT 40ML/HR, ALBUMIN 25% IV DAILY, CONTINUE TO MONITOR (4) Dementia Status: Acute Qualifiers: Dementia type: vascular dementia Dementia behavioral disturbance: with behavioral disturbance Qualified Code(s): F01.51 - Vascular dementia with behavioral disturbance Plan: SEROQUEL 25MG PO HS, CONTINUE TO MONITOR (5) Agitation Status: Acute Plan: CONTINUE TO MONITOR (6) Rhabdomyolysis Status: Resolved Qualifiers: Rhabdomyolysis type: traumatic Encounter type: initial encounter Qualified Code(s): T79.6XXA - Traumatic ischemia of muscle, initial encounter Plan: CONTINUE TO MONITOR (7) Influenza Status: Acute Plan: TAMIFLU 75MG PO BID, CONTINUE TO MONITOR (8) Fall Status: Acute Qualifiers: Encounter type: initial encounter Qualified Code(s): W19.XXXA - Unspecified fall, initial encounter Plan: PHYSICAL THERAPY CONSULT, CONTINUE TO MONITOR (9) Urinary retention Status: Acute Plan: FLOMAX 0.4MG PO BID, CONTINUE TO MONITOR
[2017-07-29] MEDS: PEPCID 20 MG IV PREMIX* 20 MG/50 ML BAG IV SCH ×2 (10:33→22:12)
[2017-07-29] MEDS: ALBUMIN HUMAN 25%- 100ML 100 ML IV SCH (12:00)
[2017-07-29] MEDS: MILK OF MAGNESIA PO SCH ×2 (17:31→22:17)
[2017-07-30 06:15] LABS: BASOPHILS % (AUTO) 0.1 % (0.2-1.0); EOSINOPHILS % (AUTO) 0.1 % (0.9-2.9); HEMATOCRIT 39.6 % (42.0-54.0); HEMOGLOBIN 13.2 g/dL (13.5-18.0); LYMPHOCYTES # (AUTO) 0.8 X10^3/uL (1.3-2.9); LYMPHOCYTES % (AUTO) 6.7 % (21.0-51.0); MEAN CORPUSCULAR HEMOGLOBIN 27.9 pg (27.0-34.0); MEAN CORPUSCULAR HGB CONC 33.3 g/dL (33.0-35.0); MEAN CORPUSCULAR VOLUME 83.7 fL (80.0-100.0); MEAN PLATELET VOLUME 9.2 fL (7.4-11.0); MONOCYTES # (AUTO) 1.5 x10^3/uL (0.3-0.8); MONOCYTES % (AUTO) 11.9 % (0.0-13.0); NEUTROPHILS % (AUTO) 81.2 % (42.0-75.0); PLATELET COUNT 230 X10^3/uL (150.0-450.0); RED BLOOD COUNT 4.73 X10^6/uL (4.7-6.0); RED CELL DISTRIBUTION WIDTH 14.2 % (11.6-16.5); WHITE BLOOD COUNT 12.4 X10^3/uL (3.6-10.0)
[2017-07-30 06:34] LABS: ALANINE AMINOTRANSFERASE 55 Units/L (12-78); ALBUMIN 3.7 g/dL (3.4-5.0); ALKALINE PHOSPHATASE 32 Units/L (46-116); ASPARTATE AMINO TRANSFERASE 24 Units/L (15-37); BLOOD UREA NITROGEN 25 mg/dL (7-18); CALCIUM 9.7 mg/dL (8.5-10.1); CARBON DIOXIDE 31.6 mmol/L (21-32); CHLORIDE 100 mmol/L (98-107); SODIUM 136 mmol/L (136-145); TOTAL PROTEIN 6.3 g/dL (6.4-8.2); eGFR BLACK RACES > 60 (>60); eGFR NON BLACK RACES > 60 (>60)
[2017-07-30] MEDS: XOPENEX 1.25 MG/3 ML NEBULE NEB SCH ×2 (08:51→13:12)
[2017-07-30] MEDS: ALBUMIN HUMAN 25%- 100ML 100 ML IV SCH (09:28)
[2017-07-30] MEDS: PROCALAMINE 3 % 1,000 ML IV SCH (09:28)
[2017-07-30] MEDS: PEPCID 20 MG IV PREMIX* 20 MG/50 ML BAG IV SCH (09:30)
[2017-07-30] MEDS: FLOMAX PO SCH (09:31)
[2017-07-30] MEDS: CIPRO IV 400 MG PREMIX* 400 MG/200 ML IV.SOLN. IV SCH (09:31)
[2017-07-30] MEDS: PROTONIX INJ 40 MG VIAL IVP SCH (09:31)
[2017-07-30] MEDS: NORVASC TAB 5 MG PO SCH (09:31)
[2017-07-30] MEDS: MUCINEX DM PO SCH (09:31)
[2017-07-30] MEDS: ASPIRIN EC 81 MG PO SCH (09:32)
[2017-07-30] MEDS: COLACE CAP 100 MG PO SCH (09:32)
[2017-07-30] MEDS: COZAAR PO SCH (09:32)
[2017-07-30] MEDS: TAMIFLU PO SCH (09:32)
[2017-07-30] MEDS: MEGACE PO SCH (09:33)
[2017-07-30] MEDS: MILK OF MAGNESIA PO SCH (12:46)
[2017-07-30] MEDS: MIRALAX POWDER (1 DOSE 17GM) PO SCH (12:46)
[2017-07-30 13:59] VITALS: BP 186/92
== END 2017-07-30 15:40 | DRG 565 ==
LOC: MED/SURG 10:13 → UNDOADMOB 10:13 → MED/SURG 10:44 → OBSVTOIN 10:44
PROVIDERS: ADMIT Internal Medicine; ATTEND Internal Medicine
DX: T79.6XXA Traumatic ischemia of muscle, initial encounter (principal); E46 Unspecified protein-calorie malnutrition; F01.51 Vascular dementia, unspecified severity, with behavioral disturbance; R26.89 Other abnormalities of gait and mobility; R51 Headache; W18.39XA Other fall on same level, initial encounter; R45.1 Restlessness and agitation; J44.9 Chronic obstructive pulmonary disease, unspecified; R06.02 Shortness of breath; B95.2 Enterococcus as the cause of diseases classified elsewhere; R33.9 Retention of urine, unspecified; R13.11 Dysphagia, oral phase
CPT/HCPCS: 36415; 70450; 71045; 80053; 81001; 82550; 82553; 84134; 84484; 85025; 87040; 87070; 87077; 87186; 87205; 87502; 93005; 94640; 94760; 97535; A4222; B5200; C9113; G9035; P9047; Q0177; S0028; S0179; J0696; J0744; J1630; J2405; J2920; J7613; J7620

== ENCOUNTER 2017-08-05 11:03 | Emergency (ER) | payer OTHER ==
[2017-08-05 11:14] VITALS: BMI 18.2
[2017-08-05] MEDS ORDERED: APRESOLINE INJ 20 MG VIAL ONE (11:14)
[2017-08-05] MEDS ORDERED: MORPHINE SULFATE INJ 4 MG ONE (11:15)
[2017-08-05] MEDS ORDERED: MORPHINE SULFATE INJ 4 MG IVP ONE (11:18)
--- NOTE | 2017-08-05 11:36 | DR.GENAD ---
HPI - PCP Primary Care Physician: cecilia - Complaint/Symptoms Chief Complaint Doctors Comments: Patient presents with complaint of left sided rib pain. He is reported to have fallen sometimes the previous night. Patient does not remember injury just that he hurts today. Pain is 10/10, sharp, aggravated by movement. Chief Complaint:: ton staff stated the pt fell yesterday sometime and has been having left rib pain. ton staff stated his oxygen low on 2 liters. - Source History Provided: Patient - Mode of Arrival Mode of Arrival: Stretcher - Timing Onset of Chief Complaint: 08/04/17 PMH - PMH Past Medical History: Yes Past Medical History: COPD, CVA, Dementia, Dyslipidemia, Hypertension Past Surgical History: Yes Surgical History: Appendectomy, Ortho Surgery - Family History History of Family Medical Conditions: Yes Family Medical History: Cancer, [place], Hypertension - Social History Does patient currently use any type of tobacco product: No Have you used tobacco products in the last 12 months: No Type of Tobacco Use: None Does any household member use tobacco: No Alcohol Use: None Do you use any recreational Drugs:: No Lives With: Family Lives Where: Home - infectious screening In the last 2 months have you had wt loss of >10#?: NO Have you had fever, night sweats or hemotysis?: No Have you traveled outside the country in the last 6 months?: No Isolation: Standard ROS - Review of Systems Eyes: No Symptoms Reported ENTM: No Symptoms Reported Respiratoy: No Symptoms Reported Cardiovascular: No Symptoms Reported Gastrointestinal/Abdominal: No Symptoms Reported Genitourinary: No Symptoms Reported Neurological: No Symptoms Reported Musculoskeletal: Rib(s) (left mid) Integumentary: No Symptoms Reported Hematologic/Lymphatic: No Symptoms Reported Endocrine: No Symptoms Reported Psychiatric: No Symptoms Reported All Other Systems: Reviewed and Negative PE - Vital Signs Vitals: Temperature 98.8 F Pulse Rate [Apical] 77 Pulse Rate 87 Respiratory Rate 30 Blood Pressure [Right Arm] 168/105 Blood Pressure [Left Arm] 122/73 Blood Pressure 183/103 O2 Sat by Pulse Oximetry 100 - General Limitations: No Limitations General Appearance: Alert, In No Apparent Distress - Head Head Exam: Normal Inspection, Atraumatic - Eyes Eye exam: Normal Appearance, PERRL, EOMI - ENT ENT Exam: Normal Exam External Ear Exam: Normal External Inspection TM/Canal Exam: Bilateral Normal Nose Exam: Normal Nose Exam Mouth Exam: Normal Inspection Throat Exam: Normal Inspection - Neck Neck Exam: Normal Inspection - Chest Chest Inspection: Normal Inspection, Tenderness (to palpation mid left chest wall) - Respiratory Respiratory Exam: Normal Lung Sounds Bilat Respiratory Exam: Bilateral Clear to Auscultation - Cardiovascular Cardiovascular Exam: Regular Rate, Normal Rhythm - Abdominal Exam Abdominal Exam: Normal Inspection Abdominal Tenderness: negative: RUQ, RLQ, LUQ, LLQ, Epigastrium, Suprapubic, Diffuse, Mild, Moderate, Severe, Other - Extremities Extremities Exam: Normal Inspection - Back Back Exam: Normal Inspection - Neurologic Neurological Exam: Alert, Oriented X3, CN II-XII Intact - Psychiatric Psychiatric Exam: Normal Affect - Skin Skin Exam: Warm, Dry Course - Reevaluation 1st: Improved ROR - Labs Reviewed Laboratory Results Reviewed?: Yes (UA: +1Luekocytes, 6-8 RBC) Result Diagrams: 08/05/17 12:21 08/05/17 12:21 Laboratory: WBC 16.4 X10^3/uL (3.6-10.0) H 08/05/17 12:21 RBC 4.54 X10^6/uL (4.7-6.0) L 08/05/17 12:21 Hgb 12.5 g/dL (13.5-18.0) L 08/05/17 12:21 Hct 37.8 % (42.0-54.0) L 08/05/17 12:21 MCV 83.4 fL (80.0-100.0) 08/05/17 12:21 MCH 27.6 pg (27.0-34.0) 08/05/17 12:21 MCHC 33.1 g/dL (33.0-35.0) 08/05/17 12:21 RDW 14.5 % (11.6-16.5) 08/05/17 12:21 Plt Count 329 X10^3/uL (150.0-450.0) 08/05/17 12:21 MPV 8.2 fL (7.4-11.0) 08/05/17 12:21 Neut % 86.7 % (42.0-75.0) H 08/05/17 12:21 Lymph % 5.1 % (21.0-51.0) L 08/05/17 12:21 [place] % 7.5 % (0.0-13.0) 08/05/17 12:21 Eos % 0.1 % (0.9-2.9) L 08/05/17 12:21 Baso % 0.6 % (0.2-1.0) 08/05/17 12:21 Neut # 14.3 x10^3/uL (2.2-4.8) H 08/05/17 12:21 Lymph # 0.8 X10^3/uL (1.3-2.9) L 08/05/17 12:21 [place] # 1.2 x10^3/uL (0.3-0.8) H 08/05/17 12:21 Eos # 0.0 x10^3/uL (0.0-0.2) 08/05/17 12:21 Baso # 0.1 X10^3/uL (0.0-0.1) 08/05/17 12:21 Absolute Nucleated RBC 0.0 /100WBC 08/05/17 12:21 Sodium 141 mmol/L (136-145) 08/05/17 12:21 Corrected Sodium TNP 08/05/17 12:21 Potassium 3.4 mmol/L (3.5-5.1) L 08/05/17 12:21 Chloride 101 mmol/L (98-107) 08/05/17 12:21 Carbon Dioxide 34.2 mmol/L (21-32) H 08/05/17 12:21 BUN 36 mg/dL (7-18) H 08/05/17 12:21 Creatinine 1.81 mg/dL (0.70-1.30) H 08/05/17 12:21 Est GFR (MDRD) Af Amer 48 (>60) L 08/05/17 12:21 Est GFR (MDRD) Non-Af 40 (>60) L 08/05/17 12:21 Glucose 99 mg/dL (65-99) 08/05/17 12:21 Calcium 9.3 mg/dL (8.5-10.1) 08/05/17 12:21 Corrected Calcium TNP 08/05/17 12:21 Total Bilirubin 0.90 mg/dL (0.2-1.0) 08/05/17 12:21 AST 21 Units/L (15-37) 08/05/17 12:21 ALT 29 Units/L (12-78) 08/05/17 12:21 Alkaline Phosphatase 43 Units/L (46-116) L 08/05/17 12:21 C-Reactive Protein 33.90 mg/L (0-3.0) H 08/05/17 12:21 Total Protein 7.3 g/dL (6.4-8.2) 08/05/17 12:21 Albumin 3.9 g/dL (3.4-5.0) 08/05/17 12:21 Globulin 3.4 g/dL (2.5-4.5) 08/05/17 12:21 Albumin/Globulin Ratio 1.1 Ratio (1.1-2.1) 08/05/17 12:21 Specimen Type Clean catch urine 08/05/17 12:33 Urine Color Yellow (YELLOW) 08/05/17 12:33 Urine Appearance Clear (CLEAR) 08/05/17 12:33 Urine pH 5.0 (5.0 - 8.0) 08/05/17 12:33 Ur Specific [place] 1.015 (1.000-1.030) 08/05/17 12:33 Urine Protein 2+ (NEGATIVE) 08/05/17 12:33 Urine Glucose (UA) Negative (NEGATIVE) 08/05/17 12:33 Urine Ketones Negative (NEGATIVE) 08/05/17 12:33 Urine Occult Blood 3+ (NEGATIVE) 08/05/17 12:33 Urine Nitrite Negative (NEGATIVE) 08/05/17 12:33 Urine Bilirubin Negative (NEGATIVE) 08/05/17 12:33 Urine Urobilinogen Normal (NORMAL) 08/05/17 12:33 Ur Leukocyte Esterase 1+ (NEGATIVE) 08/05/17 12:33 Urine RBC 6-8 /HPF (NEGATIVE) 08/05/17 12:33 Urine WBC 3-5 /HPF (NEGATIVE) 08/05/17 12:33 Ur Squamous Epith Cells Negative /HPF (NEGATIVE) 08/05/17 12:33 Urine Bacteria Negative /HPF (NEGATIVE) 08/05/17 12:33 Urine Mucus Few /HPF (NEGATIVE) 08/05/17 12:33 Ur Culture Indicated? No/not indicated 08/05/17 12:33 - XRAY XRAY Interpreted by: Radiologist (Chest: Closed, nondisplaced fractures are present involving the posterolateral aspects of the left 6th,7th,8th and 9th ribs. Extensive subcutaneous emphysema is present.) - Diagnosis Discharge Problem: Rib fx left side non displaced 6,7,8,9 - Discharge Plan Condition: Stable - Follow ups/Referrals Follow ups/Referrals: Abhinav Moe [Primary Care Provider] - 3 days - Instructions
--- NOTE | 2017-08-05 12:07 | RAD ---
HISTORY: Fall, severe left-sided rib pain Study: Five view left rib series Comparison: Chest x-ray done 07/26/2017. Findings: Closed, nondisplaced fractures are present involving the posterolateral aspects of the left 6th, 7th, 8th and 9th ribs. Remainder ribs appear intact. There is extensive subcutaneous emphysema involving the left chest extending into the left axilla and extending into the lower neck regions bilaterally. No pneumothorax is seen. There is no evidence of significant lung contusion or pleural fluid. IMPRESSION: Closed, nondisplaced fractures involving the posterolateral aspects of the left 6th, 7th, 8th and 9th ribs. Extensive subcutaneous emphysema and is present as described. Reported By:
[2017-08-05 12:29] LABS: BASOPHILS # (AUTO) 0.1 X10^3/uL (0.0-0.1); BASOPHILS % (AUTO) 0.6 % (0.2-1.0); EOSINOPHILS % (AUTO) 0.1 % (0.9-2.9); HEMATOCRIT 37.8 % (42.0-54.0); HEMOGLOBIN 12.5 g/dL (13.5-18.0); LYMPHOCYTES # (AUTO) 0.8 X10^3/uL (1.3-2.9); LYMPHOCYTES % (AUTO) 5.1 % (21.0-51.0); MEAN CORPUSCULAR HEMOGLOBIN 27.6 pg (27.0-34.0); MEAN CORPUSCULAR HGB CONC 33.1 g/dL (33.0-35.0); MEAN CORPUSCULAR VOLUME 83.4 fL (80.0-100.0); MEAN PLATELET VOLUME 8.2 fL (7.4-11.0); MONOCYTES # (AUTO) 1.2 x10^3/uL (0.3-0.8); MONOCYTES % (AUTO) 7.5 % (0.0-13.0); NEUTROPHILS # (AUTO) 14.3 x10^3/uL (2.2-4.8); NEUTROPHILS % (AUTO) 86.7 % (42.0-75.0); PLATELET COUNT 329 X10^3/uL (150.0-450.0); RED BLOOD COUNT 4.54 X10^6/uL (4.7-6.0); RED CELL DISTRIBUTION WIDTH 14.5 % (11.6-16.5); WHITE BLOOD COUNT 16.4 X10^3/uL (3.6-10.0)
[2017-08-05 12:41] LABS: BILIRUBIN,URINE NEGATIVE (NEGATIVE); BLOOD/HEMOGLOBIN,URINE 3+ (NEGATIVE); GLUCOSE, URINE NEGATIVE (NEGATIVE); KETONES,URINE NEGATIVE (NEGATIVE); LEUKOCYTE ESTERASE ,URINE 1+ (NEGATIVE); NITRITES,URINE NEGATIVE (NEGATIVE); PROTEIN,URINE 2+ (NEGATIVE); UROBILINOGEN,URINE NORMAL (NORMAL)
[2017-08-05 12:42] LABS: ALANINE AMINOTRANSFERASE 29 Units/L (12-78); ALBUMIN 3.9 g/dL (3.4-5.0); ALKALINE PHOSPHATASE 43 Units/L (46-116); ASPARTATE AMINO TRANSFERASE 21 Units/L (15-37); BLOOD UREA NITROGEN 36 mg/dL (7-18); CALCIUM 9.3 mg/dL (8.5-10.1); CARBON DIOXIDE 34.2 mmol/L (21-32); CHLORIDE 101 mmol/L (98-107); CREATININE 1.81 mg/dL (0.70-1.30); SODIUM 141 mmol/L (136-145); TOTAL PROTEIN 7.3 g/dL (6.4-8.2); eGFR BLACK RACES 48 (>60); eGFR NON BLACK RACES 40 (>60)
[2017-08-05 12:47] LABS: APPEARANCE,URINE CLEAR (CLEAR); BACTERIA,URINE NEGATIVE /HPF (NEGATIVE); COLOR,URINE YELLOW (YELLOW); SQUAMOUS EPITHELIAL CELL,UR NEGATIVE /HPF (NEGATIVE)
[2017-08-05 12:48] LABS: MUCUS,URINE FEW /HPF (NEGATIVE)
[2017-08-05 13:54] VITALS: BP 188/109
== END 2017-08-05 14:12 | disposition home or self-care (01) ==
LOC: ER 11:22
DX: S22.42XA Multiple fractures of ribs, left side, initial encounter for closed fracture (principal); W19.XXXA Unspecified fall, initial encounter; Y92.89 Other specified places as the place of occurrence of the external cause
CPT/HCPCS: 36415; 71111; 80053; 81001; 85025; 86140; 96365; 96374; 99283; A4222; J0360; J2270

== ENCOUNTER 2017-08-06 11:27 | Inpatient (IN) | payer OTHER ==
[2017-08-06] MEDS ORDERED: NS 1000 ML 1,000 ML ONE (11:37)
[2017-08-06] MEDS ORDERED: DUONEB 0.5 MG/3 MG ONE (11:38)
[2017-08-06] MEDS ORDERED: ZOFRAN INJ 4 MG VIAL ONE (11:39)
[2017-08-06] MEDS ORDERED: MORPHINE SULFATE INJ 4 MG ONE ×2 (11:39→14:35)
[2017-08-06] MEDS ORDERED: DUONEB 0.5 MG/3 MG NEB ONE ×2 (11:42→15:36)
[2017-08-06] MEDS ORDERED: ZOFRAN INJ 4 MG VIAL IVP ONE (11:45)
[2017-08-06] MEDS ORDERED: MORPHINE SULFATE INJ 4 MG IVP ONE ×2 (11:45→14:45)
[2017-08-06 11:46] VITALS: BMI 18.2
--- NOTE | 2017-08-06 11:50 | DR.GENAD ---
HPI - HPI Comment HPI Comment: MULTIPLE LEFT RIB FRACTURES. NOW HAVING RESPIRATORY DISTRESS AND SUBCUTAOUS CREPITUS ON THE LEFT SIDE. PATIENT IN SEVERE RESPIRATORY DISTRESS. HAVING CHEST PAIN. - Complaint/Symptoms Chief Complaint Doctors Comments: INCRESING SOB AND OXYGEN DESATURATION. - Nurses notes reviewed Nurses Notes Review: Yes - Source History Provided: Patient, Family Member - Mode of Arrival Mode of Arrival: Stretcher - Timing Came on: Suddenly - Duration Duration: Constant Duration: Days - Severity Severity: Severe PMH - PMH Past Medical History: COPD, CVA, Dementia, Dyslipidemia, Hypertension Past Surgical History: Yes Surgical History: Appendectomy, Ortho Surgery - Family History Family Medical History: Cancer, [place], Hypertension - Social History Do you use any recreational Drugs:: No ROS - Review of Systems Constitutional: Weakness, Fatigue Eyes: negative: Eye Pain, Discharge ENTM: Nose Discharge, Nose Congestion. negative: Ear Pain, Throat Pain Respiratoy: Non-Productive Cough, Short of Breath, Wheezing. negative: Hemoptysis Cardiovascular: Chest Pain (LEFT CHEST WALL.) Gastrointestinal/Abdominal: Abdominal Pain Genitourinary: No Symptoms Reported Neurological: Weakness Musculoskeletal: Muscle Pain Integumentary: Change in Color Hematologic/Lymphatic: No Symptoms Reported Endocrine: No Symptoms Reported All Other Systems: Reviewed and Negative PE - Vital Signs Vitals: Pulse Rate [Apical] 117 Pulse Rate 88 Respiratory Rate 37 Blood Pressure [Right Arm] 140/66 Blood Pressure [Left Arm] 111/71 Blood Pressure 147/88 O2 Sat by Pulse Oximetry 88 - General Limitations: Altered Mental Status General Appearance: In Distress - Head Head Exam: Normal Inspection, Atraumatic - Eyes Eye exam: Normal Appearance, PERRL - ENT ENT Exam: Normal External Ear Exam External Ear Exam: Normal External Inspection TM/Canal Exam: Bilateral Normal Nose Exam: Normal Nose Exam Mouth Exam: Normal Inspection Throat Exam: Normal Inspection - Neck Neck Exam: Trachea Midline - Chest Chest Inspection: Symmetric Chest Wall Rise - Respiratory Respiratory Exam: Normal Lung Sounds Bilat, Accessory Muscle Use, Chest Wall Tenderness (LEFT), Respiratory Distress Respiratory Exam: Bilateral Wheezing, Bilateral Rhonchi, Left Decreased Breath Sounds, Left Dullness on Percussion, Right Wheezing, Right Rhonchi, Upper Wheezing, Upper Rhonchi, Lower Wheezing, Lower Rhonchi - Cardiovascular Cardiovascular Exam: Regular Rate, Normal Rhythm, Normal Heart Sounds - Abdominal Exam Abdominal Exam: Normal Bowel Sounds, Soft. negative: Tenderness - Extremities Extremities Exam: negative: Calf Tenderness - Back Back Exam: Paraspinal Tenderness - Neurologic Neurological Exam: Alert - Psychiatric Psychiatric Exam: Anxious - Skin Skin Exam: Erythema MDM - Additional Information Additional Information Obtained From: Family - Differential Diagnosis Differential Diagnosis: RESPIRATORY DISTRESS, PNEUMOTHORAX, MS, PE, PNEUMONIA Course - Treatment Treatment: SEE ORDERS. - Consultation Consultation Comments: DR. GARZA, SURGEON PUT LEFT CHEST TUBE IN PATIENT IN ED. LUNG EXPANDED WELL AND DRAINAGE IS CONTINUED. DR. ALCARAZ WILL ADMIT PATIENT. FAMILY SIGN DNR. THEY DO NOT WISH FOR PATIENT TO BE TRANSFER OUT. ALL THEY WISH IS CARE PROVIDED HERE. - Education/Counseling Education/Counseling: Patient, Family, Education Educated On: Treatment, Diagnosis ROR - Labs Reviewed Laboratory Results Reviewed?: Yes Result Diagrams: 08/07/17 05:40 08/07/17 05:40 Laboratory: WBC 20.0 X10^3/uL (3.6-10.0) H 08/06/17 11:58 RBC 4.78 X10^6/uL (4.7-6.0) 08/06/17 11:58 Hgb 13.3 g/dL (13.5-18.0) L 08/06/17 11:58 Hct 40.3 % (42.0-54.0) L 08/06/17 11:58 MCV 84.4 fL (80.0-100.0) 08/06/17 11:58 MCH 27.8 pg (27.0-34.0) 08/06/17 11:58 MCHC 32.9 g/dL (33.0-35.0) L 08/06/17 11:58 RDW 14.7 % (11.6-16.5) 08/06/17 11:58 Plt Count 323 X10^3/uL (150.0-450.0) 08/06/17 11:58 MPV 8.4 fL (7.4-11.0) 08/06/17 11:58 Neut % 86.3 % (42.0-75.0) H 08/06/17 11:58 Lymph % 5.3 % (21.0-51.0) L 08/06/17 11:58 [place] % 7.2 % (0.0-13.0) 08/06/17 11:58 Eos % 0.7 % (0.9-2.9) L 08/06/17 11:58 Baso % 0.5 % (0.2-1.0) 08/06/17 11:58 Neut # 17.3 x10^3/uL (2.2-4.8) H 08/06/17 11:58 Lymph # 1.1 X10^3/uL (1.3-2.9) L 08/06/17 11:58 [place] # 1.4 x10^3/uL (0.3-0.8) H 08/06/17 11:58 Eos # 0.1 x10^3/uL (0.0-0.2) 08/06/17 11:58 Baso # 0.1 X10^3/uL (0.0-0.1) 08/06/17 11:58 Absolute Nucleated RBC 0.1 /100WBC 08/06/17 11:58 Sample Site Rba 08/06/17 12:10 ABG pH 7.450 (7.35-7.45) 08/06/17 12:10 ABG pCO2 47.0 mmHg (35.0-45.0) H 08/06/17 12:10 ABG pO2 75.0 mmHg (80.0-100.0) L 08/06/17 12:10 ABG HCO3 32.7 mmol/L (22-26) H* 08/06/17 12:10 ABG O2 Saturation 96.0 % (90-100) 08/06/17 12:10 ABG Base Excess 7.6 mmol/L (-2.0-2.0) H 08/06/17 12:10 Bruce Test Na 08/06/17 12:10 A-a Gradient 223.0 mmHg 08/06/17 12:10 FiO2 50.000 08/06/17 12:10 Blood Gas Comments Nelly well gb 08/06/17 12:10 Sodium 142 mmol/L (136-145) 08/06/17 11:58 Corrected Sodium 143 mmol/L (136-145) 08/06/17 11:58 Potassium 3.1 mmol/L (3.5-5.1) L 08/06/17 11:58 Chloride 103 mmol/L (98-107) 08/06/17 11:58 Carbon Dioxide 32.2 mmol/L (21-32) H 08/06/17 11:58 BUN 38 mg/dL (7-18) H 08/06/17 11:58 Creatinine 1.97 mg/dL (0.70-1.30) H 08/06/17 11:58 Est GFR (MDRD) Af Amer 44 (>60) L 08/06/17 11:58 Est GFR (MDRD) Non-Af 36 (>60) L 08/06/17 11:58 Glucose 136 mg/dL (65-99) H 08/06/17 11:58 Calcium 9.5 mg/dL (8.5-10.1) 08/06/17 11:58 Corrected Calcium TNP 08/06/17 11:58 Total Bilirubin 0.80 mg/dL (0.2-1.0) 08/06/17 11:58 AST 24 Units/L (15-37) 08/06/17 11:58 ALT 26 Units/L (12-78) 08/06/17 11:58 Alkaline Phosphatase 44 Units/L (46-116) L 08/06/17 11:58 Creatine Kinase 303 Units/L (39-308) 08/06/17 11:58 CK-MB (CK-2) 3.2 ng/mL (0-4.0) 08/06/17 11:58 CK/CKMB % Calc 1.1 % (<4) 08/06/17 11:58 Troponin I 0.13 ng/mL (0-1.5) 08/06/17 11:58 Total Protein 7.7 g/dL (6.4-8.2) 08/06/17 11:58 Albumin 3.9 g/dL (3.4-5.0) 08/06/17 11:58 Globulin 3.8 g/dL (2.5-4.5) 08/06/17 11:58 Albumin/Globulin Ratio 1.0 Ratio (1.1-2.1) L 08/06/17 11:58 - XRAY XRAY Interpreted by: Radiologist XRAY Findings: REPORT DISCUSS WITH FAMILY. - EKG Rhythm: NSR (EKG NOTED.) - Diagnosis Discharge Problem: Pneumothorax, left, Abnormal cardiac enzyme level Multiple rib fractures Qualifiers: Encounter type: initial encounter Fracture type: closed Laterality: left Qualified Code(s): S22.42XA - Multiple fractures of ribs, left side, initial encounter for closed fracture - Discharge Plan Disposition: 09 ADMITTED INPATIENT Condition: Poor - Follow ups/Referrals - Instructions
[2017-08-06] MEDS: NS 1000 ML 1,000 ML IV SCH (11:54)
--- NOTE | 2017-08-06 12:02 | RAD ---
HISTORY: Fall, left-sided rib pain Study: Portable chest Comparison: Rib series same day FINDINGS/IMPRESSION: Exam is limited by patient positioning. There are multiple left-sided rib fractures as previously ming cribed. There is extensive chest wall emphysema present. A definite pneumothorax cannot be visualized however given the presence of subcutaneous gas, small pneumothorax cannot be completely excluded and correlation with chest CT could be performed for further evaluation. Reported By:
[2017-08-06 12:04] LABS: BASOPHILS # (AUTO) 0.1 X10^3/uL (0.0-0.1); BASOPHILS % (AUTO) 0.5 % (0.2-1.0); EOSINOPHILS # (AUTO) 0.1 x10^3/uL (0.0-0.2); EOSINOPHILS % (AUTO) 0.7 % (0.9-2.9); HEMATOCRIT 40.3 % (42.0-54.0); HEMOGLOBIN 13.3 g/dL (13.5-18.0); LYMPHOCYTES # (AUTO) 1.1 X10^3/uL (1.3-2.9); LYMPHOCYTES % (AUTO) 5.3 % (21.0-51.0); MEAN CORPUSCULAR HEMOGLOBIN 27.8 pg (27.0-34.0); MEAN CORPUSCULAR HGB CONC 32.9 g/dL (33.0-35.0); MEAN CORPUSCULAR VOLUME 84.4 fL (80.0-100.0); MEAN PLATELET VOLUME 8.4 fL (7.4-11.0); MONOCYTES # (AUTO) 1.4 x10^3/uL (0.3-0.8); MONOCYTES % (AUTO) 7.2 % (0.0-13.0); NEUTROPHILS # (AUTO) 17.3 x10^3/uL (2.2-4.8); NEUTROPHILS % (AUTO) 86.3 % (42.0-75.0); PLATELET COUNT 323 X10^3/uL (150.0-450.0); RED BLOOD COUNT 4.78 X10^6/uL (4.7-6.0); RED CELL DISTRIBUTION WIDTH 14.7 % (11.6-16.5)
[2017-08-06 12:17] LABS: ABG BASE EXCESS 7.6 mmol/L (-2.0-2.0); ABG HCO3 32.7 mmol/L (22-26)
[2017-08-06 12:22] LABS: BLOOD UREA NITROGEN 38 mg/dL (7-18); CALCIUM 9.5 mg/dL (8.5-10.1); CARBON DIOXIDE 32.2 mmol/L (21-32); CHLORIDE 103 mmol/L (98-107); COR NA(FOR HYPERGLY) 143 mmol/L (136-145); CREATININE 1.97 mg/dL (0.70-1.30); SODIUM 142 mmol/L (136-145); TROPONIN I 0.13 ng/mL (0-1.5); eGFR BLACK RACES 44 (>60); eGFR NON BLACK RACES 36 (>60)
[2017-08-06 12:26] LABS: ALANINE AMINOTRANSFERASE 26 Units/L (12-78); ALBUMIN 3.9 g/dL (3.4-5.0); ALKALINE PHOSPHATASE 44 Units/L (46-116); ASPARTATE AMINO TRANSFERASE 24 Units/L (15-37); CKMB % 1.1 % (<4); CREATINE KINASE 303 Units/L (39-308); CREATINE KINASE MB 3.2 ng/mL (0-4.0); TOTAL PROTEIN 7.7 g/dL (6.4-8.2)
--- NOTE | 2017-08-06 14:23 | CT ---
HISTORY: Shortness of breath, decreased O2 sat, rib fractures Study: CT chest without contrast Comparison: Rib series 08/06/2017 Technique: Axial noncontrast images with coronal and sagittal reformats. Dose reduction procedures we re used with mA/kv adjusted for body size. The examination is limited due to the lack of intravenous contrast. Findings: Examination of the mediastinum demonstrated no evidence for mediastinal masses, lymphadenopathy, or e nlarged hilar lymphadenopathy. There is extensive subcutaneous emphysema involving the left and right posterior chest wall, left kindra thorax anteriorly and laterally there is a very large left pneumotho rax with little if any residual aerated lung although there is some pleuro parenchymal scarring attac lynette the lung to the left lateral chest wall in several areas. There is a shift of the heart mediasti nal structures to the left. The right lung is hyperinflated but free of acute infiltrates. No nodules , masses, or alveolar infiltrates are identified. Multiple left posterior rib fractures are identifie d. Those portions of the upper abdominal organs visualized were within normal limits to the limitatio ns of an unenhanced examination. IMPRESSION: Very large left pneumothorax with very little aerated lung remaining and multiple areas of pleuro par enchymal attachment of atelectatic lung. There is significant shift of the heart mediastinal structur es to the left. Right lung hyperinflated but clear Multiple left posterior rib fractures Extensive subcutaneous emphysema Findings were given to Dr. Barrera by me 08/06/2017 2:21 p.m. Reported By:
[2017-08-06] MEDS ORDERED: STERILE WATER IRRIGATION IR ONE (14:26)
[2017-08-06] MEDS ORDERED: XYLOCAINE 1 % (PLAIN) ONE (14:26)
[2017-08-06] MEDS ORDERED: ZOSYN VIAL 3.375 GM 3.375 GM in NS 100 ML IV + SPIKE MINIBAG* 100 ML IV ONE (15:04)
[2017-08-06] MEDS ORDERED: ZOSYN VIAL 3.375 GM IV ONE (15:19)
[2017-08-06] MEDS ORDERED: NS 100 ML IV + SPIKE MINIBAG* 100 ML IV ONE (15:19)
--- NOTE | 2017-08-06 15:22 | RAD ---
HISTORY: Status post chest tube placement. Study: Portable chest. Comparison: CT chest and chest x-ray dated same day. Findings: Interval placement of a left chest tube whose tip is within the left upper lobe. There is re-expansio n of the left lung with likely small residual apical pneumothorax. Small residual left pleural effusi on. Opacities within the left lung likely representing pulmonary contusion. The right lung is otherwi se clear. The cardiac silhouette is unremarkable. Multiple left-sided rib fractures appear unchanged given technique. Associated subcutaneous emphysema. Remaining osseous structures appear intact. IMPRESSION: 1. Left-sided chest tube that appears to be in good position with reexpansion of the left lung and li brad small residual apical pneumothorax. 2. Remaining exam appears unchanged. Reported By:
[2017-08-06 15:48] LABS: ABG BASE EXCESS 6.7 mmol/L (-2.0-2.0)
[2017-08-06 15:49] LABS: ABG HCO3 34.2 mmol/L (22-26)
[2017-08-06 16:02] LABS: CKMB % 1.3 % (<4); TROPONIN I 0.43 ng/mL (0-1.5)
[2017-08-06 16:04] LABS: CREATINE KINASE MB 4.6 ng/mL (0-4.0)
[2017-08-06 16:06] LABS: BILIRUBIN,URINE NEGATIVE (NEGATIVE); BLOOD/HEMOGLOBIN,URINE 3+ (NEGATIVE); GLUCOSE, URINE NEGATIVE (NEGATIVE); KETONES,URINE NEGATIVE (NEGATIVE); LEUKOCYTE ESTERASE ,URINE NEGATIVE (NEGATIVE); NITRITES,URINE NEGATIVE (NEGATIVE); PROTEIN,URINE 2+ (NEGATIVE); UROBILINOGEN,URINE NORMAL (NORMAL)
[2017-08-06 16:18] LABS: AMORPHOUS SEDIMENT,UR 2+ /HPF (NEGATIVE); APPEARANCE,URINE CLEAR (CLEAR); BACTERIA,URINE 1+ /HPF (NEGATIVE); COLOR,URINE YELLOW (YELLOW); SQUAMOUS EPITHELIAL CELL,UR FEW /HPF (NEGATIVE)
[2017-08-06] MEDS ORDERED: ZOFRAN INJ 4 MG VIAL IVP PRN (16:39)
[2017-08-06] MEDS ORDERED: MORPHINE SULFATE INJ 2 MG INJ IVP PRN (16:40)
[2017-08-06 22:19] LABS: CKMB % 0.9 % (<4); CREATINE KINASE MB 3.4 ng/mL (0-4.0); TROPONIN I 0.54 ng/mL (0-1.5)
[2017-08-06] MEDS: MORPHINE SULFATE INJ 2 MG INJ IVP PRN (22:32)
[2017-08-07] MEDS: MORPHINE SULFATE INJ 2 MG INJ IVP PRN ×5 (02:00→23:45)
[2017-08-07 06:31] LABS: BASOPHILS # (AUTO) 0.1 X10^3/uL (0.0-0.1); BASOPHILS % (AUTO) 0.2 % (0.2-1.0); HEMATOCRIT 37.7 % (42.0-54.0); HEMOGLOBIN 12.2 g/dL (13.5-18.0); LYMPHOCYTES # (AUTO) 0.6 X10^3/uL (1.3-2.9); LYMPHOCYTES % (AUTO) 1.7 % (21.0-51.0); MEAN CORPUSCULAR HEMOGLOBIN 27.5 pg (27.0-34.0); MEAN CORPUSCULAR HGB CONC 32.3 g/dL (33.0-35.0); MEAN PLATELET VOLUME 9.3 fL (7.4-11.0); MONOCYTES % (AUTO) 2.9 % (0.0-13.0); NEUTROPHILS % (AUTO) 95.2 % (42.0-75.0); PLATELET COUNT 265 X10^3/uL (150.0-450.0); RED BLOOD COUNT 4.44 X10^6/uL (4.7-6.0); RED CELL DISTRIBUTION WIDTH 14.6 % (11.6-16.5)
[2017-08-07 06:39] LABS: WHITE BLOOD COUNT 34.7 X10^3/uL (3.6-10.0)
[2017-08-07 06:58] LABS: CALCIUM 8.8 mg/dL (8.5-10.1); CARBON DIOXIDE 30.1 mmol/L (21-32); CKMB % 0.7 % (<4); COR CA(FOR HYPOALB) 9.6 mg/dL (8.5-10.1); CREATINE KINASE MB 2.1 ng/mL (0-4.0); CREATININE 2.11 mg/dL (0.70-1.30); MAGNESIUM 2.3 mg/dL (1.7-2.9); TOTAL PROTEIN 6.3 g/dL (6.4-8.2); TROPONIN I 0.33 ng/mL (0-1.5)
[2017-08-07 07:05] LABS: BAND NEUTROPHILS % 2 % (0-10); PLATELET MORPHOLOGY COMMENT NORMAL (NORMAL)
[2017-08-07 08:50] LABS: ABG ALLEN TEST POS; ABG BASE EXCESS 7.9 mmol/L (-2.0-2.0); ABG HCO3 33.3 mmol/L (22-26)
--- NOTE | 2017-08-07 09:46 | PCM.PROG ---
Progress Note - Progress Note for Day of Date: 08/07/17 - Subjective Subjective: more comfortable today , moderate SOB. Rib Fx pain is controlled . chest xray showed expansion of the lung with good position of the Chest -T - Past Medical Family Social History Allergies: Allergies olanzapine [From Zyprexa] Allergy (Verified 08/06/17 11:46) - Vital Signs and I&O's Vital Signs: Temperature 98.8 F Pulse Rate [Apical] 99 Pulse Rate 120 Respiratory Rate 22 Blood Pressure [Right Arm] 115/57 Blood Pressure [Left Arm] 108/66 Blood Pressure 147/88 O2 Sat by Pulse Oximetry 95 Intake and Output: Intake & Output 08/04/17 08/05/17 08/06/17 08/07/17 11:59 11:59 11:59 11:59 Intake Total 440 Output Total 1185 Balance -745 - Physical Exam Respiratory: Left, Rhonchi Speech Pattern: Clear - Laboratory and Diagnostics Result Diagrams: 08/07/17 05:40 08/07/17 05:40 Labs: Laboratory WBC 34.7 X10^3/uL (3.6-10.0) H* D 08/07/17 05:40 RBC 4.44 X10^6/uL (4.7-6.0) L 08/07/17 05:40 Hgb 12.2 g/dL (13.5-18.0) L 08/07/17 05:40 Hct 37.7 % (42.0-54.0) L 08/07/17 05:40 MCV 85.0 fL (80.0-100.0) 08/07/17 05:40 MCH 27.5 pg (27.0-34.0) 08/07/17 05:40 MCHC 32.3 g/dL (33.0-35.0) L 08/07/17 05:40 RDW 14.6 % (11.6-16.5) 08/07/17 05:40 Plt Count 265 X10^3/uL (150.0-450.0) 08/07/17 05:40 Plt Count Comment Adequate (ADEQUATE) 08/07/17 05:40 MPV 9.3 fL (7.4-11.0) 08/07/17 05:40 Neut % 95.2 % (42.0-75.0) H 08/07/17 05:40 Lymph % 1.7 % (21.0-51.0) L 08/07/17 05:40 [place] % 2.9 % (0.0-13.0) 08/07/17 05:40 Eos % 0.0 % (0.9-2.9) L 08/07/17 05:40 Baso % 0.2 % (0.2-1.0) 08/07/17 05:40 Neut # 33.0 x10^3/uL (2.2-4.8) H 08/07/17 05:40 Lymph # 0.6 X10^3/uL (1.3-2.9) L 08/07/17 05:40 [place] # 1.0 x10^3/uL (0.3-0.8) H 08/07/17 05:40 Eos # 0.0 x10^3/uL (0.0-0.2) 08/07/17 05:40 Baso # 0.1 X10^3/uL (0.0-0.1) 08/07/17 05:40 Absolute Nucleated RBC 0.1 /100WBC 08/07/17 05:40 Total Counted 100 08/07/17 05:40 Neutrophils % (Manual) 94 % (39-76) H 08/07/17 05:40 Band Neutrophils % 2 % (0-10) 08/07/17 05:40 Lymphocytes % (Manual) 3 % (13-43) L 08/07/17 05:40 Monocytes % (Manual) 1 % (4-9) L 08/07/17 05:40 Plt Morphology Comment Normal (NORMAL) 08/07/17 05:40 RBC Morphology Normal (NORMAL) 08/07/17 05:40 INR Target Range - 08/07/17 05:40 INR 1.30 (0.8-1.3) 08/07/17 05:40 PTT 33.9 SECONDS (22.9-36.5) 08/07/17 05:40 PTT Comment - 08/07/17 05:40 Sample Site Rr 08/07/17 08:45 ABG pH 7.440 (7.35-7.45) 08/07/17 08:45 ABG pCO2 49.0 mmHg (35.0-45.0) H 08/07/17 08:45 ABG pO2 57.0 mmHg (80.0-100.0) L 08/07/17 08:45 ABG HCO3 33.3 mmol/L (22-26) H* 08/07/17 08:45 ABG O2 Saturation 90.0 % (90-100) 08/07/17 08:45 ABG Base Excess 7.9 mmol/L (-2.0-2.0) H 08/07/17 08:45 Bruce Test Pos 08/07/17 08:45 A-a Gradient 110.0 mmHg 08/07/17 08:45 FiO2 32.000 08/07/17 08:45 Blood Gas Comments Pt josh well. 08/07/17 08:45 Sodium 146 mmol/L (136-145) H 08/07/17 05:40 Corrected Sodium 147 mmol/L (136-145) H 08/07/17 05:40 Potassium 3.4 mmol/L (3.5-5.1) L 08/07/17 05:40 Chloride 106 mmol/L (98-107) 08/07/17 05:40 Carbon Dioxide 30.1 mmol/L (21-32) 08/07/17 05:40 BUN 45 mg/dL (7-18) H 08/07/17 05:40 Creatinine 2.11 mg/dL (0.70-1.30) H 08/07/17 05:40 Est GFR (MDRD) Af Amer 41 (>60) L 08/07/17 05:40 Est GFR (MDRD) Non-Af 34 (>60) L 08/07/17 05:40 Glucose 129 mg/dL (65-99) H 08/07/17 05:40 Calcium 8.8 mg/dL (8.5-10.1) 08/07/17 05:40 Corrected Calcium 9.6 mg/dL (8.5-10.1) 08/07/17 05:40 Magnesium 2.3 mg/dL (1.7-2.9) 08/07/17 05:40 Total Bilirubin 1.10 mg/dL (0.2-1.0) H 08/07/17 05:40 AST 25 Units/L (15-37) 08/07/17 05:40 ALT 21 Units/L (12-78) 08/07/17 05:40 Alkaline Phosphatase 34 Units/L (46-116) L 08/07/17 05:40 Creatine Kinase 306 Units/L (39-308) 08/07/17 05:40 CK-MB (CK-2) 2.1 ng/mL (0-4.0) 08/07/17 05:40 CK/CKMB % Calc 0.7 % (<4) 08/07/17 05:40 Troponin I 0.33 ng/mL (0-1.5) 08/07/17 05:40 Total Protein 6.3 g/dL (6.4-8.2) L 08/07/17 05:40 Albumin 3.0 g/dL (3.4-5.0) L 08/07/17 05:40 Globulin 3.3 g/dL (2.5-4.5) 08/07/17 05:40 Albumin/Globulin Ratio 0.9 Ratio (1.1-2.1) L 08/07/17 05:40 Specimen Type Catherized urine 08/06/17 16:00 Urine Color Yellow (YELLOW) 08/06/17 16:00 Urine Appearance Clear (CLEAR) 08/06/17 16:00 Urine pH 5.0 (5.0 - 8.0) 08/06/17 16:00 Ur Specific [place] 1.020 (1.000-1.030) 08/06/17 16:00 Urine Protein 2+ (NEGATIVE) 08/06/17 16:00 Urine Glucose (UA) Negative (NEGATIVE) 08/06/17 16:00 Urine Ketones Negative (NEGATIVE) 08/06/17 16:00 Urine Occult Blood 3+ (NEGATIVE) 08/06/17 16:00 Urine Nitrite Negative (NEGATIVE) 08/06/17 16:00 Urine Bilirubin Negative (NEGATIVE) 08/06/17 16:00 Urine Urobilinogen Normal (NORMAL) 08/06/17 16:00 Ur Leukocyte Esterase Negative (NEGATIVE) 08/06/17 16:00 Urine RBC 4-8 /HPF (NEGATIVE) 08/06/17 16:00 Urine WBC 0-3 /HPF (NEGATIVE) 08/06/17 16:00 Ur Squamous Epith Cells Few /HPF (NEGATIVE) 08/06/17 16:00 Amorphous Sediment 2+ /HPF (NEGATIVE) 08/06/17 16:00 Urine Bacteria 1+ /HPF (NEGATIVE) 08/06/17 16:00 Ur Culture Indicated? No/not indicated 08/06/17 16:00 - Plan (1) Pneumothorax, left Status: Acute (2) Multiple rib fractures involving four or more ribs Status: Acute (3) Contusion of lung Status: Acute (4) Severe chronic obstructive pulmonary disease Status: Acute Plan: keep chest tube . repeat chest xray . pain control. pulmonary care for the COPD .
--- NOTE | 2017-08-07 09:57 | RAD ---
Examination: Portable AP chest History: SOB Comparison 08/06/2017 Findings: Continued normal heart size with essentially clear right lung. Stable position of left ches t tube with the tip at the level of the left hilum. There is no definite pneumothorax. There is incre asing airspace disease in the left lower lung. Impression: Increasing pulmonary density left lower lung compatible with atelectasis/contusion. No si gnificant pneumothorax. Improving subcutaneous emphysema left chest wall. Reported By:
[2017-08-07] MEDS ORDERED: K-LYTE EFFERVESCENT PO ONE ×2 (11:00→13:19)
[2017-08-07] MEDS ORDERED: PHARMACY CONSULT - DOSE _____ XX SCH (12:00)
[2017-08-07] MEDS: NS 1000 ML 1,000 ML IV SCH ×2 (12:47→16:05)
[2017-08-07] MEDS ORDERED: DILAUDID INJ IVP PRN (12:54)
[2017-08-07] MEDS ORDERED: LEVAQUIN PREMIX IV 750 MG 750 MG/150 ML BAG IV SCH (13:00)
--- NOTE | 2017-08-07 13:27 | RAD ---
Examination: Portable AP chest History: SOB Comparison reference earlier this date Findings: Stable normal heart size with no change in appearance of the right lung. There is slight im provement in aeration of the left lower lobe with extensive residual airspace disease. Position of le ft chest tube is essentially stable. There is a subtle extrapulmonary air collection suggested along the left cardiac and mediastinal border. No large pneumothorax is seen; the extreme apex is not inclu ded on this image. There is gastric distention and residual subcutaneous air involving the left chest wall. Impression: 1. Slight improvement in aeration of the left lower lung airspace process. 2. Small left mediastinal air collection as noted. Reported By:
[2017-08-07 13:49] LABS: CKMB % 0.6 % (<4); CREATINE KINASE MB 1.9 ng/mL (0-4.0); TROPONIN I 0.22 ng/mL (0-1.5)
[2017-08-07] MEDS: TORADOL 15 MG VIAL IVP SCH ×2 (14:16→20:10)
[2017-08-07] MEDS ORDERED: LASIX IVP ONE (15:56)
[2017-08-07] MEDS ORDERED: LANOXIN INJ IVP ONE (16:15)
[2017-08-08] MEDS: NS 1000 ML 1,000 ML IV SCH ×2 (00:21→05:24)
[2017-08-08] MEDS: TORADOL 15 MG VIAL IVP SCH (02:10)
--- NOTE | 2017-08-08 06:46 | RAD ---
HISTORY: Shortness of breath Study: Chest AP portable Comparison: 08/07/2017 Findings: The patient is rotated significantly to the left. The heart is within normal limits in size. No conge stive heart failure is noted. There is a left-sided chest tube in place its tip has been advanced to the level of the aortic arch. The previously noted small medial pneumothorax at is not identified on this examination although it could be obscured due to rotation. The lungs are generally hyperinflated . The right lung is clear. Perihilar infiltrate is present on the left unchanged. There is subcutaneo us emphysema left chest wall, left neck. The bony thorax is unremarkable. IMPRESSION: Previously noted medial left pneumothorax not identified on this examination. It has either resolved or is obscured due to rotation No change left perihilar infiltrate Reported By:
[2017-08-08 07:14] VITALS: BP 123/75
[2017-08-08] MEDS ORDERED: K-LYTE EFFERVESCENT PO ONE (09:37)
[2017-08-08] MEDS ORDERED: LANOXIN INJ IVP ONE (15:55)
== END 2017-08-08 08:25 | disposition expired | DRG 200 ==
LOC: ER 11:35 → ICU 15:49
PROVIDERS: ADMIT Internal Medicine; ATTEND Internal Medicine
PROC: 0W9B30Z Drainage of Left Pleural Cavity with Drainage Device, Percutaneous Approach (ICD-10-PCS; principal; 2017-08-06)
DX: J93.83 Other pneumothorax (principal); I46.9 Cardiac arrest, cause unspecified; S22.42XA Multiple fractures of ribs, left side, initial encounter for closed fracture; J98.19 Other pulmonary collapse; R06.03 Acute respiratory distress; R07.89 Other chest pain; J44.9 Chronic obstructive pulmonary disease, unspecified; E78.2 Mixed hyperlipidemia; I10 Essential (primary) hypertension; R06.02 Shortness of breath; R94.30 Abnormal result of cardiovascular function study, unspecified; W18.39XA Other fall on same level, initial encounter; Y92.89 Other specified places as the place of occurrence of the external cause; Z66 Do not resuscitate
CPT/HCPCS: 36415; 36600; 51702; 71045; 71250; 80053; 81001; 82550; 82553; 82803; 83735; 84484; 85025; 85610; 85730; 93005; 94640; 96365; 96367; 96374; 96375; 99284; 99285; A4216; A4217; A4222; J1160; J1940; J1956; J2001; J2270; J2405; J2543; J7620